=== PATIENT | male | born 1945 | race Caucasian/White ===

== ENCOUNTER → 2016-07-10 | Outpatient (CLI) | payer BC ==
[~2016-07-10] MED LIST: ALBINS/ INH; AMOX875T PO; ATOR-54 PO; ATV/1 PO; B-COTAB18 PO; DEXA2TAB PO; DLC5 PO; DRGTP100 TD; DXM/4 PO; FLUC100T4 PO; GFNSR600 PO; HYDR-4079 PO; LDDP5 TD; MRLP17X PO; ONDA8TAB12 PO; OXGN; POLY335019 PO; PRED10TA PO; PROC1TAB5 PO; SENNTAB23 PO; SERT-234 PO; SNK PO; TIOT1SPR PO; ZLF/50 PO; [UNRECOGNIZED DRUG - CODE] PO
--- NOTE | 2016-07-10 15:48 | DIAGNOSTIC IMAGING REPORT ---
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 FINDINGS: The heart remains stable in size. Stable volume loss within the left hemithorax. Mild diffuse interstitial thickening which is likely chronic. No new focal lung consolidations. No evidence for pulmonary edema. Left loculated hydropneumothorax remains unchanged. Left perihilar and bilateral paramediastinal thickening is also unchanged. This could represent radiation fibrosis. IMPRESSION: 1. Overall, no significant change compared to the prior studies. 2. Loculated left hydropneumothorax persists. 3. Bilateral paramediastinal and left perihilar thickening is also stable. This could represent post radiation changes. Electronically signed by: Lui Bal M.D. 07/10/2016 3:46 PM Dictated Date/Time: 07/10/2016 3:42 PM
== END | disposition home or self-care (01) ==
LOC: C.RAD 15:28
PROVIDERS: ATTEND Internal Medicine Hematology & Oncology
DX: C34.12 Malignant neoplasm of upper lobe, left bronchus or lung (principal); J94.8 Other specified pleural conditions

== ENCOUNTER → 2016-08-02 | Outpatient (CLI) | payer BC ==
[~2016-08-02] MED LIST changes: +OPTIRAY 320 IV PRN
--- NOTE | 2016-08-02 16:04 | DIAGNOSTIC IMAGING REPORT ---
ABDOMEN AND PELVIS CT WITH IV AND ORAL CONTRAST CT DOSE: 775.94 mGy.cm HISTORY: LUNG CA. TECHNIQUE: Multiaxial CT images of the abdomen and pelvis were performed following the use of intravenous and oral contrast. COMPARISON STUDY: 06/08/2016 FINDINGS: No change compared to the prior study. Left basilar changes including nodularity and pleural thickening remain unchanged. Diffuse fatty infiltration of liver is nonprogressive. Gallbladder is negative for distention. Right kidney demonstrates atrophy and cortical scarring. Mild cortical cortical scarring left kidney is present with no evidence for atrophy. These findings are stable. There are no new or interval findings. The bowel pattern is nonobstructive. There is atelectatic change and ectasia of the abdominal as well as iliac arterial vasculature. Bladder is midline. IMPRESSION: Stable evaluation of the abdomen and pelvis. 2. No change compared to the prior exam. 3. No new or interval process. Electronically signed by: Marshall Granado M.D. 08/02/2016 4:02 PM Dictated Date/Time: 08/02/2016 4:00 PM
--- NOTE | 2016-08-03 09:15 | DIAGNOSTIC IMAGING REPORT ---
CT OF THE CHEST WITH IV CONTRAST CLINICAL HISTORY: Lung cancer. COMPARISON STUDY: Chest CT June 08, 2016. TECHNIQUE: Following IV administration of 115 mL of Optiray-320, helical axial images of the chest were obtained. Images were viewed in the axial, sagittal and coronal planes. IV contrast was administered without complication. FINDINGS: A loculated left anterior pneumothorax is unchanged. Left perihilar/paramediastinal opacity is unchanged since prior exam of June 08, 2016. A small left pleural effusion is unchanged. The appearance of the left hemithorax is unchanged and prior exam. Moderate emphysema is noted. There is no right pneumothorax. Central airways are patent. A calcified right upper lobe fibronodular nodule is benign. No suspicious osseous lesions are present. The abdomen and pelvis will be reported separately. No enlarged thoracic lymph nodes are identified on this exam. IMPRESSION: 1. No change in left perihilar/paramediastinal opacity which may favors postradiation change. 2. Stable small left pleural effusion and no change in the left anterior loculated pneumothorax since prior exam. 3. No convincing evidence for recurrent or residual malignancy. Electronically signed by: Kennedy Packer M.D. 08/03/2016 9:14 AM Dictated Date/Time: 08/02/2016 4:00 PM
== END | disposition home or self-care (01) ==
LOC: C.CTS 15:33
PROVIDERS: ATTEND Nurse Practitioner Family
DX: C34.12 Malignant neoplasm of upper lobe, left bronchus or lung (principal); J90 Pleural effusion, not elsewhere classified

== ENCOUNTER → 2016-08-31 | Outpatient (CLI) | payer BC ==
[~2016-08-31] MED LIST changes: -OPTIRAY 320 IV PRN
--- NOTE | 2016-08-31 14:10 | DIAGNOSTIC IMAGING REPORT ---
CHEST 2 VIEWS ROUTINE HISTORY: Hemoptysis. COMPARISON: Chest CT 08/02/2016. FINDINGS: Bilateral Mediastinal and left perihilar thickening is again noted. This could represent post radiation changes. The heart is normal in size. No new focal lung consolidations. Loculated left hydropneumothorax persists. No right pleural effusion. Stable volume loss within the left hemithorax. IMPRESSION: Overall, no significant change compared the prior studies. Loculated left hydropneumothorax persists. Bilateral paramediastinal and left perihilar thickening is stable and may represent post radiation change. Electronically signed by: Lui Bal M.D. 08/31/2016 2:08 PM Dictated Date/Time: 08/31/2016 2:04 PM
== END | disposition home or self-care (01) ==
LOC: C.RAD 13:22
PROVIDERS: ATTEND Internal Medicine Hematology & Oncology
DX: C34.12 Malignant neoplasm of upper lobe, left bronchus or lung (principal)

== ENCOUNTER → 2016-09-10 | Outpatient (CLI) | payer BC ==
[~2016-09-10] MED LIST changes: +GADAVIST IV PRN
--- NOTE | 2016-09-10 13:29 | DIAGNOSTIC IMAGING REPORT ---
MRI OF THE BRAIN COMBO CLINICAL HISTORY: Lung cancer. COMPARISON STUDY: MRI of the brain dated 06/08/2016. TECHNIQUE: MRI of the brain was performed utilizing various T1 and T2-weighted sequences in the axial, sagittal, and coronal planes. Contrast-enhanced sequences were acquired following the administration of 8 cc of Gadavist. FINDINGS: Brain parenchyma: There is mild subcortical and periventricular microangiopathic disease. There has been progression of intracranial metastatic disease as compared to 06/08/2016. There is a 1.4 cm enhancing nodule in the right posterior parietal lobe (previously measured 0.3 cm). With mild surrounding edema. There is also a 1.1 cm lesion in the left posterior frontal lobe seen on axial image #19 with mild surrounding edema (new from previous). Both lesions show restricted diffusion. There is no hemorrhage or midline shift. There is no restricted diffusion typical for acute ischemia. No extra-axial fluid collection is seen. The cerebellar tonsils are normal in configuration. Ventricles, sulci, and cisterns: Normal in configuration. Pituitary and sella: Unremarkable. Intracranial vasculature: Normal flow voids are maintained at the skull base. Orbits: The bony orbits are grossly intact. Orbital contents are normal in appearance. Sinuses and mastoids: There is a right mastoid effusion. A left mastoid air cells and paranasal sinuses are clear. Calvarium: Unremarkable. Cervical cord: Partially visualized cervical spinal cord is normal in morphology and signal intensity. IMPRESSION: 1. Overall progression of intracranial metastatic disease. There are 2 enhancing metastatic lesions identified as detailed above measuring 1.4 cm and 1.1 cm with mild surrounding edema. 2. There is no hemorrhage, midline shift, or evidence of acute ischemia. 3. Right mastoid effusion. Electronically signed by: Hoang Cody M.D. 09/10/2016 1:28 PM Dictated Date/Time: 09/10/2016 1:23 PM
== END | disposition home or self-care (01) ==
LOC: C.MRI 11:28
PROVIDERS: ATTEND Internal Medicine Hematology & Oncology
DX: C34.12 Malignant neoplasm of upper lobe, left bronchus or lung (principal); C79.31 Secondary malignant neoplasm of brain; H74.91 Unspecified disorder of right middle ear and mastoid

== ENCOUNTER → 2016-10-09 | Outpatient (CLI) | payer BC ==
[~2016-10-09] MED LIST changes: -GADAVIST IV PRN; -PRED10TA PO
[2016-10-09 09:50] LABS: BLOOD UREA NITROGEN 34 mg/dl (7-18)
--- NOTE | 2016-10-17 06:34 | CODING QUERY NO DIAGNOSIS ---
TREATMENT RENDERED WITHOUT A DIAGNOSIS To promote full compliance with coding requirements relating to patient care, physician participation is requested in all cases of terminal gauger uncertainty. Please assist us with providing a diagnosis/symptom for the test(s) below: A diagnosis/symptom was not documented on your Order. A valid diagnosis/symptom is required to bill all insurances. Please remember that we are unable to code a diagnosis of rule out, probable, possible, questionable, or suspected. Tests that require a diagnosis: DOS: 10/09/16 * BUN DIAGNOSIS: * CREATININE DIAGNOSIS: Provider Signature: Date: Thank you Selena Bae[facility]ton [employer] Once completed, please kindly fax back to [phone] For questions please call [phone]
== END | disposition home or self-care (01) ==
LOC: C.LAB 08:37
PROVIDERS: ATTEND Physician Assistant Medical
DX: C34.10 Malignant neoplasm of upper lobe, unspecified bronchus or lung (principal); C79.31 Secondary malignant neoplasm of brain

== ENCOUNTER → 2016-10-16 | Outpatient (CLI) | payer BC ==
[~2016-10-16] MED LIST changes: +OPTIRAY 320 IV PRN
--- NOTE | 2016-10-16 11:27 | DIAGNOSTIC IMAGING REPORT ---
CT SCAN OF THE CHEST WITH IV CONTRAST CLINICAL HISTORY: Lung cancer follow-up. COMPARISON STUDY: Chest CT scans dated 216 and 17 and 01/17/2015. TECHNIQUE: Following the IV administration of 92 cc of Optiray 320, CT scan of the thorax was performed from the thoracic inlet to the upper abdomen. Images are reviewed in the axial, sagittal, and coronal planes. IV contrast was administered without complication. CT DOSE: 403.84 mGy.cm FINDINGS: Thyroid: Imaged portions of the thyroid gland are normal in size and attenuation. Thoracic aorta: There is atherosclerotic calcification of the thoracic aorta, which is normal in caliber and demonstrates standard 3-vessel arch anatomy. No dissection is seen. Pulmonary vasculature: The pulmonary trunk is normal in caliber. There are no filling defects identified in the central pulmonary vessels to indicate pulmonary embolus. Note that this examination was not protocoled for evaluation of the pulmonary arteries. Heart: The heart is normal in size and configuration, and without pericardial effusion. The coronary arteries are densely calcified. Lungs and pleural spaces: Emphysema is noted. There is significant left perihilar and upper lobe fibrosis, overall similar to the 08/02/2016 examination. A loculated hydropneumothorax at the anterior left apex is unchanged from previous, as is loculated pleural fluid at the left lung base. There is a new irregular nodular density in the lingula seen on axial image #164. This measures 1.4 cm. A 3 mm right upper lobe nodule seen image #144. This is unchanged from multiple prior studies and of low suspicion. The right lung is otherwise grossly clear. There is minimal debris present within the left mainstem bronchus. The trachea appears patent. Scattered calcified granulomas are observed. . Mediastinum: There are new and pathologically enlarged lymph nodes in the posterior/inferior mediastinum. Enlarged nodes are seen posterior to the descending thoracic aorta just above the esophageal hiatus. The largest node is present on image #209 and measures 2.1 x 2.1 cm. A mildly enlarged left retrocrural node is seen on image #248 and measures 1.1 cm. Cherri: Clear. Axillae: There is no axillary lymphadenopathy. Upper abdomen: The liver is steatotic. A small hiatal hernia is identified. The kidneys demonstrate cortical atrophy, right asymmetrically greater than left. The pancreas is atrophic and there are numerous parenchymal calcifications consistent with chronic pancreatitis. There is advanced atherosclerotic calcification and mild ectasia of the abdominal aorta. No adrenal lesion is seen. Skeletal structures: The skeletal structures are osteopenic. No lytic or blastic bony lesions are seen. IMPRESSION: 1. Emphysema. 2. Extensive left perihilar/left upper lobe fibrotic change, a loculated left apical hydropneumothorax, and pleural fluid at the left lung base are similar over multiple prior examinations. 3. There are new and pathologically enlarged lymph nodes seen in the posterior/inferior mediastinum behind the descending thoracic aorta and in the left retrocrural region. This is highly concerning for metastatic disease. 4. There is a new 1.4 cm irregular nodular density in the lingula. Although this could be on an inflammatory basis, recurrent neoplasm is not excluded. 5. The right lung is grossly clear. 6. Hepatic steatosis. 7. Additional changes as above. Electronically signed by: Hoang Cody M.D. 10/16/2016 11:26 AM Dictated Date/Time: 10/16/2016 11:12 AM
== END | disposition home or self-care (01) ==
LOC: C.CTS 09:24
PROVIDERS: ATTEND Physician Assistant Medical
DX: C34.12 Malignant neoplasm of upper lobe, left bronchus or lung (principal); C79.31 Secondary malignant neoplasm of brain

== ENCOUNTER → 2016-11-07 | Outpatient (CLI) | payer BC ==
[~2016-11-07] MED LIST changes: -OPTIRAY 320 IV PRN
--- NOTE | 2016-11-07 10:51 | DIAGNOSTIC IMAGING REPORT ---
PET/CT HISTORY: Lung enhancement C34.12 TECHNIQUE: PET/CT was performed from the base of the skull through the pelvis following the intravenous administration of 15.45 mCi of F18-FDG. Non-contrast CT imaging was performed over the same range without breath-hold for attenuation correction of PET images and anatomic correlation, but not for primary interpretation as it is not of standard diagnostic quality. CT DOSE: COMPARISON: December 28, 2015. CT chest 10/16/2016 FINDINGS: HEAD AND NECK: Physiologic muscular activity. No metabolically active adenopathy. CHEST: Unchanging left apical fibrous and loculated pneumothorax-type change. Moderate activity characteristics although similar in general compared to the prior exam. Metabolically active nodule posterior chest wall on the right having SUVs of 3.2. Developing left posterior periaortic adenopathy with SUVs of 7.7. Somewhat progressive metabolic activity adjacent to the left basilar density including a left paravertebral location. May be partial localized invasion to the posterior chest wall which is similar compared to the prior exam. ABDOMEN/PELVIS: Interval development of a single metabolically active nodule central right hepatic lobe with an SUV of 6. This measures 1.5 cm. MUSCULOSKELETAL: There is no FDG-avid or destructive bone lesion. IMPRESSION: 1. Somewhat progressive metabolic activity involving the density at the left base including progressive para-aortic/paravertebral adenopathy in the lower chest region. 2. Developing metastatic disease of liver with a solitary metastatic focus of the central right hepatic lobe. 3. The upper lung findings appear generally stable Electronically signed by: Marshall Granado M.D. 11/07/2016 10:50 AM Dictated Date/Time: 11/07/2016 10:32 AM
== END | disposition home or self-care (01) ==
LOC: C.PET 07:55
PROVIDERS: ATTEND Nurse Practitioner Family
DX: C34.12 Malignant neoplasm of upper lobe, left bronchus or lung (principal); C78.7 Secondary malignant neoplasm of liver and intrahepatic bile duct; Z08 Encounter for follow-up examination after completed treatment for malignant neoplasm; Z92.3 Personal history of irradiation

== ENCOUNTER → 2016-11-07 | Outpatient (CLI) | payer BC ==
[2016-11-07 14:34] VITALS: BP 98/70; PULSE 97; O2SAT 93
--- NOTE | 2016-11-07 16:39 | Radiation Oncology Follow-Up ---
Radiation Oncology Follow-Up Date of Visit November 07, 2016. 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 Status post 4 cycles of carboplatin/etoposide for recurrent/progressive disease in brain/left hemithorax Chemotherapy completed May 2016 Progression of metastatic disease on brain MRI 09/10/2016 Last Edited By: Kylie Sun on Sep 12, 2016 16:15 (Kylie Sun PA-C) History of Present Illness Mr. Wei is a 69-year-old gentleman with previous smoking history who recently presented with left pleuritic chest pain and shortness of breath and minimal weight loss. He eventually was seen by primary care and had a chest x-ray which showed a left upper lobe mass and then did have a CT thorax on 01/17/2014 which showed a 5.5 cm left upper lobe mass which extended into the mediastinum involving the left pulmonary artery. The patient was then seen by Dr. Weems who took the patient for a bronchoscopy on 01/20/2015 which revealed partial obstruction of the left mainstem bronchus with a friable endobronchial mass. No mediastinal lymph nodes were noted. Biopsy was completed and revealed small cell lung carcinoma. The patient then had a PET/CT scan on 01/24/2015 which showed elevated SUV of 12.4 associated with the left upper lobe mass and multiple prominent non-FDG avid mediastinal lymph nodes. An MRI of the brain was completed Patient: MAIKEL WEI : 1945 Med Rec: [id number] Acct ID: [id number] Page: on 01/24/2015 which showed no evidence for intracranial metastatic disease. The patient was referred to Dr. Powers who recommended concurrent chemoradiation therapy. We are now seeing the patient in consultation for discussion of radiation therapy. The patient is doing well overall. He is tolerating his pain with the aid of pain medication which does help partially. He denies any hemoptysis, fevers, chills, night sweats. He has lost some weight and does have a poor appetite. Denies any headaches or any focal neurologic deficits. He has no other complaints at this time He underwent radiation therapy to the chest from 02/02/2015 to 03/28/2015. There was a large break due to hospitalization. He did received 7000 cGy combined radiation and chemotherapy. He return to our office for prophylactic cranial irradiation. This was completed 06/27/2015. He received 2500 cGy. ( He has been followed closely by Dr. Powers with recheck imaging. An MRI of the brain 12/15/2015 showed a 5 mm focus of peripheral enhancement juncture right parietal occipital lobe. This is well seen transaxially but is not appreciated currently. Remainder of study is negative. Close MRI follow-up is considered mandatory to exclude a solitary focus of developing metastatic change. On 01/26/2016 he had a recheck MRI which showed increase in size in the 7 mm enhancing lesion within the right parietal lobe. Therefore, this is consistent with metastatic focus. The patient was showing possible progression of the chest. He had been seen in decision was to wait on radiation to determine if he has long-term stability of the disease. An MRI of the brain 02/28/2016 showed an interval decrease in the size of the enhancing right posterior parietal nodule which currently measures 3.6 mm. Interval resolution of the surrounding vasogenic edema. No new or enhancing lesions were delineated. MRI of the brain was repeated again 04/10/2016 showed slight decrease in size and a 3 mm enhancing nodule within the right posterior parietal lobe. No new enhancing lesions were identified. 06/08/2016 MRI of the brain showed stable 3 mm enhancing nodule in the posterior right parietal lobe. No new enhancing lesions. He had a recheck MRI 09/10/2016. This showed overall progression of intracranial metastatic disease. There are 2 enhancing metastatic lesion is identified. These measure 1.4 cm and 1.1 cm with mild surrounding edema. With this most recent finding patient is referred back to radioablation oncology to discuss therapy. He completed stereotactic radiation therapy to the brain 10/08/2016. He received 2400 cGy. He received 3 fractions of therapy at 800 cGy each. (Kylie Sun PA-C) Interim History Over the past month he denies any problems of recurrent headaches. He does have some lightheadedness but he has associated this with pain medication and blood pressure medication. By adjusting the time of the day that he takes his blood pressure medication he has been doing better regards to dizziness. He continues on dexamethasone 4 mg daily. He has been treated for thrush. He feels that the Diflucan also attributes to the dizziness T has experienced. He' s had no change in vision. No change in strength of the upper or lower extremities. He's been followed closely by medical oncology who have ordered a PET scan. There is plans for him to begin a taxanes type chemotherapy in the near future. He was given a prescription for pretreat steroids. He is not sure of the instructions. He plans to call or stop in at medical oncology just S the prescription. (Kylie Sun PA-C) Allergies Coded Allergies: No Known Allergies (Unverified , 02/07/16) Home Medications Scheduled Atorvastatin (Lipitor), 20 MG PO HS B-Complex Vitamins (Vitamin B Complex), 1 TAB PO DAILY Fluconazole (Diflucan), 1 TAB PO DAILY Sertraline HCl (Sertraline HCl), 50 MG PO DAILY Tiotropium [place] Monohydrate (Spiriva Respimat), 2 PUFFS PO DAILY Scheduled PRN Hydrocodone/Acetaminophen 10MG/325MG ([place] 10MG/325MG), 1 TAB PO Q4H PRN for Pain Review of Systems Gastrointestinal: Symptoms: Constipation GI Comments: occ constipation ,has a BM every 2-3 days Oral: Symptoms: Scant Saliva/Dry Mouth Other Oral Symptoms: " still taking meds for thrush - has 6 more days of treatment " Respiratory: Symptoms: Dry Cough, SOB With Exertion, Productive Cough Sputum Character: occ phlegm , had yellow spuum was put on a z pack and this is better Other Respiratory: " feels like he has to breathe harder " Urinary: Symptoms: Nocturia Comments: at night has a slower stream of urine, denies pain or burning Skin: Symptoms: No Problems (Kylie Sun PA-C) Physical Exam Vital Signs Date Time Temp Pulse Resp B/P Pulse Ox O2 Delivery O2 Flow Rate FiO2 11/07/16 14:34 97 20 98/70 93 Pain: Pain Onset: 2 months ago Side: Left Patient Pain Scale: 0 - 10 Initial Pain Intensity: 5.0 Pain Description: Dull Additional Comments: constant Fatigue: None General Appearance: no apparent distress Eyes: normal inspection, EOMI ENT: normal ENT inspection, hearing grossly normal Neck: no adenopathy Respiratory/Chest: lungs clear, no respiratory distress, no accessory muscle use Cardiovascular: regular rate, rhythm, no gallop, no murmur Abdomen: non tender Extremities: no pedal edema Neurologic/Psychiatric: bagging salvager II-XII nml as tested, no motor/sensory deficits, alert, normal mood/affect Skin: warm/dry (Kylie Sun PA-C) Laboratory Studies Test 09/18/16 09:46 10/09/16 08:42 10/23/16 14:11 White Blood Count 6.77 K/uL (4.8-10.8) 6.47 K/uL (4.8-10.8) Red Blood Count 4.02 M/uL (4.7-6.1) 4.34 M/uL (4.7-6.1) Hemoglobin 12.0 g/dL (14.0-18.0) 13.0 g/dL (14.0-18.0) Hematocrit 36.5 % (42-52) 39.8 % (42-52) Mean Corpuscular Volume 90.8 fL (80-100) 91.7 fL (80-100) Mean Corpuscular Hemoglobin 29.9 pg (25-34) 30.0 pg (25-34) Mean Corpuscular Hemoglobin Concent 32.9 g/dl (32-36) 32.7 g/dl (32-36) Platelet Count 182 K/uL (130-400) 155 K/uL (130-400) Mean Platelet Volume 9.2 fL (7.4-10.4) 9.1 fL (7.4-10.4) Neutrophils (%) (Auto) 72.8 % 76.0 % Lymphocytes (%) (Auto) 15.2 % 8.5 % Monocytes (%) (Auto) 5.8 % 9.4 % Eosinophils (%) (Auto) 5.2 % 5.3 % Basophils (%) (Auto) 0.7 % 0.6 % Neutrophils # (Auto) 4.93 K/uL (1.4-6.5) 4.92 K/uL (1.4-6.5) Lymphocytes # (Auto) 1.03 K/uL (1.2-3.4) 0.55 K/uL (1.2-3.4) Monocytes # (Auto) 0.39 K/uL (0.11-0.59) 0.61 K/uL (0.11-0.59) Eosinophils # (Auto) 0.35 K/uL (0-0.5) 0.34 K/uL (0-0.5) Basophils # (Auto) 0.05 K/uL (0-0.2) 0.04 K/uL (0-0.2) RDW Standard Deviation 50.1 fL (36.4-46.3) 55.0 fL (36.4-46.3) RDW Coefficient of Variation 15.0 % (11.5-14.5) 16.4 % (11.5-14.5) Immature Granulocyte % (Auto) 0.3 % 0.2 % Immature Granulocyte # (Auto) 0.02 K/uL (0.00-0.02) 0.01 K/uL (0.00-0.02) Sodium Level 142 mmol/L (136-145) 141 mmol/L (136-145) Potassium Level 4.3 mmol/L (3.5-5.1) 4.1 mmol/L (3.5-5.1) Chloride Level 108 mmol/L (98-107) 107 mmol/L (98-107) Carbon Dioxide Level 26 mmol/L (21-32) 26 mmol/L (21-32) Anion Gap 8.0 mmol/L (3-11) 8.0 mmol/L (3-11) Est Creatinine Clear Calc Drug Dose 44.3 ml/min 47.5 ml/min BUN/Creatinine Ratio 17.1 (10-20) 15.0 (10-20) Random Glucose 112 mg/dl (70-99) 82 mg/dl (70-99) Calcium Level 9.4 mg/dl (8.5-10.1) 9.2 mg/dl (8.5-10.1) Total Bilirubin 0.3 mg/dl (0.2-1) 0.5 mg/dl (0.2-1) Aspartate Amino Transferase (AST) 39 U/L (15-37) 24 U/L (15-37) Alanine Aminotransferase (ALT) 41 U/L (12-78) 43 U/L (12-78) Alkaline Phosphatase 185 U/L (45-117) 164 U/L (45-117) Lactate Dehydrogenase 234 U/L (87-241) 230 U/L (87-241) Total Protein 7.2 gm/dl (6.4-8.2) 7.1 gm/dl (6.4-8.2) Albumin 3.4 gm/dl (3.4-5.0) 3.2 gm/dl (3.4-5.0) Globulin 3.8 gm/dl (2.5-4.0) 3.9 gm/dl (2.5-4.0) Albumin/Globulin Ratio 0.9 (0.9-2) 0.8 (0.9-2) Blood Urea Nitrogen 34 mg/dl (7-18) 21 mg/dl (7-18) Creatinine 1.30 mg/dl (0.60-1.40) 1.40 mg/dl (0.60-1.40) Estimated GFR () 63.6 58.2 Estimated GFR (Non- 54.9 50.2 (Kylie Sun PA-C) Assessment & Plan Plan: The patient is also seen and examined by Dr. Badillo. He'll continue close follow-up with medical oncology. He will be starting chemotherapy. He is going to stop in to discuss the pretreatment medication that he is been given. We asked him to return to our office in 3 months. We'll plan to schedule a recheck MRI of the brain at that time if it has not been scheduled through medical oncology. He may call our office if he has a questions or concerns in the interim. (Kylie Sun PA-C) I agree with note created by Kylie Sun PA-C. I reviewed the patient's chart and information with her. I have examined and evaluated the patient. I reviewed relevant clinical information and answered the patient's and/or family' s questions. (Veeral. Badillo MD) Total Time In Follow-Up I spent 15 minutes speaking to the patient performing examination. I spent 15 minutes reviewing her medication and weaning this note. (Kylie Sun PA-C) I spent 15 minutes examining and counseling the patient. (Veeral. Badillo MD) Copy To Onofre Powers, D.OItz; Nirmala Delacruz; Cortez Perez MD; Juan Luis Herring MD Problem Qualifiers (1) Lung cancer: Laterality: left Lung location: upper lobe of lung Qualified Codes: C34.12 - Malignant neoplasm of upper lobe, left bronchus or lung
== END | disposition home or self-care (01) ==
LOC: C.ONC 14:27
PROVIDERS: ATTEND Physician Assistant Medical
DX: Z08 Encounter for follow-up examination after completed treatment for malignant neoplasm (principal); Z92.3 Personal history of irradiation; Z85.118 Personal history of other malignant neoplasm of bronchus and lung

== ENCOUNTER 2016-11-18 12:48 | Emergency (ER) | payer BC ==
[~2016-11-18] VITALS: Ht 165.1 cm; Wt 81.0 kg
[~2016-11-18 12:48] MED LIST changes: -ALBINS/ INH; -AMOX875T PO; -ATV/1 PO; -DEXA2TAB PO; -DLC5 PO; -DRGTP100 TD; -DXM/4 PO; -GFNSR600 PO; -LDDP5 TD; -MRLP17X PO; -ONDA8TAB12 PO; -OXGN; -POLY335019 PO; -PROC1TAB5 PO; -SENNTAB23 PO; -SERT-234 PO; -SNK PO; -[UNRECOGNIZED DRUG - CODE] PO
[2016-11-18 12:50] VITALS: TEMP 36.6; Ht 165.1 cm; Wt 81.0 kg
[2016-11-18] MEDS ORDERED: SODIUM CHLORIDE 0.9% 1000ML 2,000 ML IV ONE (13:15)
[2016-11-18 13:31] VITALS: O2SAT 97
[2016-11-18] MEDS ORDERED: ALBINS/ INH (13:40)
[2016-11-18] MEDS ORDERED: SERT-234 PO (13:40)
[2016-11-18] MEDS ORDERED: PROC1TAB5 PO (13:40)
[2016-11-18] MEDS ORDERED: SENNTAB23 PO (13:40)
[2016-11-18] MEDS ORDERED: ONDA8TAB12 PO (13:40)
[2016-11-18] MEDS ORDERED: ATV/1 PO (13:40)
[2016-11-18 13:45] LABS: BASO % 0.2 %; BASO ABS # 0.01 K/uL (0-0.2); COMPLETE YES; EOS % 6.6 %; HEMATOCRIT 37.2 % (42-52); IG% 0.2 %; LYMPH % 6.5 %; LYMPH ABS # 0.37 K/uL (1.2-3.4); MEAN CELL VOLUME 89.6 fL (80-100); MEAN CORPUSCULAR HEMOGLOBIN 30.1 pg (25-34); MEAN CORPUSCULAR HGB CONC 33.6 g/dl (32-36); MEAN PLATELET VOLUME 9.5 fL (7.4-10.4); MONO % 1.9 %; NEUT % 84.6 %; PLATELET COUNT 142 K/uL (130-400); RED BLOOD COUNT 4.15 M/uL (4.7-6.1); WHITE BLOOD COUNT 5.72 K/uL (4.8-10.8)
--- NOTE | 2016-11-18 13:53 | EMERGENCY ROOM VISIT NOTE ---
History Report prepared by Yamil: Kerri Steel Under the Supervision of: Dr. Noé Machado M.D. First contact with patient: 12:59 Chief Complaint: OTHER COMPLAINT Stated Complaint: LOW BLOOD PRESSURE,CANCER PATIENT History of Present Illness The patient is a 71 year old male who presents to the Emergency Room with complaints of persistent lightheadedness starting yesterday. He reports that he stumbles whenever he gets up because he feels lightheaded. He has lung cancer which spread to his brain with new spots on his liver. He received his first 3 Taxol infusions 4 days ago. He had radiation 1 month ago on his brain. He measured his blood pressure at home laying flat, sitting, and standing. His blood pressure was 57/46 when he was standing. He currently denies any nausea, chest pain, or increased SOB. He is usually on 2 L of O2 at home. He has been anemic before requiring blood transfusion. He has been drinking fluids and his urine does not appear dark. Source of History: patient Onset: yesterday Position: other (global) Quality: other (lightheaded) Timing: other (persistent) Associated Symptoms: No chest pain, No SOB, No nausea Review of Systems All systems have been listed, reviewed, and are negative other than those previously mentioned. Please see Additional Medical History Sheet. Past Medical & Surgical Medical Problems: (1) Benign hypertension (2) Congestive Heart Failure Nos (3) Hyperlipidemia (4) Hyperlipidemia Nec/Nos (5) Hypertension Nos (6) Hypoxia (7) Kidney stone (8) Lung cancer (9) Syncope and collapse Family History Congestive heart failure FHx: neurologic disorder Heart disease Social History Smoking Status: Former Smoker Alcohol Use: none Marital Status: Housing Status: lives with family Occupation Status: retired Current/Historical Medications Scheduled Atorvastatin (Lipitor), 20 MG PO HS B-Complex Vitamins (Vitamin B Complex), 1 TAB PO DAILY Sennosides-Docusate Sodium (Stool Softener), 1 TAB PO DAILY Sertraline (Zoloft), 100 MG PO DAILY Tiotropium [place] Monohydrate (Spiriva Respimat), 2 PUFFS PO DAILY Scheduled PRN Albuterol Sulf (Proventil 0.083% 2.5MG/3ML), 2.5 MG INH QID PRN for SOB/Wheezing Hydrocodone/Acetaminophen 10MG/325MG ([place] 10MG/325MG), 1 TAB PO Q4H PRN for Pain Lorazepam (Ativan), 1 MG PO Q8 PRN for Anxiety/Agitation Ondansetron Hcl (Zofran), 8 MG PO Q8H PRN for Nausea Prochlorperazine Maleate (Compazine), 10 MG PO Q6H PRN for Nausea Allergies Coded Allergies: No Known Allergies (Unverified , 02/07/16) Physical Exam Vital Signs Date Time Temp Pulse Resp B/P (MAP) Pulse Ox O2 Delivery O2 Flow Rate FiO2 11/18/16 17:53 92 16 130/76 98 11/18/16 16:27 93 18 152/90 98 Nasal Cannula 2.0 97 138/84 106 115/68 11/18/16 13:58 85 16 109/71 97 Nasal Cannula 2.0 11/18/16 13:33 86 18 109/68 101 90/54 105 72/49 11/18/16 13:31 97 Nasal Cannula 2.0 11/18/16 13:30 84 11/18/16 12:50 36.6 101 22 91/60 97 Room Air 2.0 Physical Exam GENERAL: Patient appears pale, awake, alert, appropriate, oriented x 3. Patient follows commands. Patient does not appear toxic. Patient is adequately hydrated and well-nourished. Currently on O2. SKIN: No erythema, pallor, cyanosis or rash HEENT: Normal head, pupils equal, reactive to light and accommodation. Ears normal. Oral cavity and posterior pharynx appear normal. Neck: Without adenopathy, no neck vein distention. LUNGS: Clear to auscultation. No wheezes, no rales, no rhonchi. HEART: No murmurs. No gallops. No rubs ABDOMEN: No masses, no rebound, no hepatomegaly or splenomegaly. EXTREMITIES: No signs of trauma. No pedal or pretibial edema. No calf or thigh tenderness. NEUROLOGIC: Cranial nerves II-XII within normal limits. No gross motor sensory function deficits. Medical Decision & Procedures ER Provider Diagnostic Interpretation: X ray results are stated below per my interpretation and the radiologist's interpretation. TWO VIEW CHEST CLINICAL HISTORY: Lung cancer. FINDINGS: AP and lateral chest radiograph is are compared to study dated 08/31/2016 and correlated with chest CT dated 10/16/2016. The AP view is degraded by patient rotation. The heart is top normal in size. There is atherosclerotic calcification of the thoracic aorta. Emphysema and chronic interstitial thickening is similar to previous. Left perihilar airspace opacity and volume loss in the left lung is similar to previous. There is no evidence of superimposed airspace consolidation or large pleural effusion. No pneumothorax is seen. The skeletal structures are osteopenic. IMPRESSION: 1. Emphysema, a left perihilar density, and chronic changes as above are not significantly changed from recent prior studies 2. There is no radiographic evidence of superimposed airspace consolidation or pleural effusion. Electronically signed by: Hoang Cody M.D. 11/18/2016 2:37 PM Dictated Date/Time: 11/18/2016 2:35 PM Laboratory Results 11/18/16 13:22 Red Blood Count 4.15, Mean Corpuscular Volume 89.6, Mean Corpuscular Hemoglobin 30.1, Mean Corpuscular Hemoglobin Concent 33.6, Mean Platelet Volume 9.5, Neutrophils (%) (Auto) 84.6, Lymphocytes (%) (Auto) 6.5, Monocytes (%) (Auto) 1.9, Eosinophils (%) (Auto) 6.6, Basophils (%) (Auto) 0.2, Neutrophils # (Auto) 4.84, Lymphocytes # (Auto) 0.37, Monocytes # (Auto) 0.11, Eosinophils # (Auto) 0.38, Basophils # (Auto) 0.01 11/18/16 13:22 Test 11/18/16 00:00 11/18/16 13:22 Urine Color YELLOW Urine Appearance CLEAR (CLEAR) Urine pH 8.0 (4.5-7.5) Urine Specific [place] 1.018 (1.000-1.030) Urine Protein NEG (NEG) Urine Glucose (UA) NEG (NEG) Urine Ketones NEG (NEG) Urine Occult Blood NEG (NEG) Urine Nitrite NEG (NEG) Urine Bilirubin NEG (NEG) Urine Urobilinogen NEG (NEG) Urine Leukocyte Esterase NEG (NEG) White Blood Count 5.72 K/uL (4.8-10.8) Red Blood Count 4.15 M/uL (4.7-6.1) Hemoglobin 12.5 g/dL (14.0-18.0) Hematocrit 37.2 % (42-52) Mean Corpuscular Volume 89.6 fL (80-100) Mean Corpuscular Hemoglobin 30.1 pg (25-34) Mean Corpuscular Hemoglobin Concent 33.6 g/dl (32-36) Platelet Count 142 K/uL (130-400) Mean Platelet Volume 9.5 fL (7.4-10.4) Neutrophils (%) (Auto) 84.6 % Lymphocytes (%) (Auto) 6.5 % Monocytes (%) (Auto) 1.9 % Eosinophils (%) (Auto) 6.6 % Basophils (%) (Auto) 0.2 % Neutrophils # (Auto) 4.84 K/uL (1.4-6.5) Lymphocytes # (Auto) 0.37 K/uL (1.2-3.4) Monocytes # (Auto) 0.11 K/uL (0.11-0.59) Eosinophils # (Auto) 0.38 K/uL (0-0.5) Basophils # (Auto) 0.01 K/uL (0-0.2) RDW Standard Deviation 52.5 fL (36.4-46.3) RDW Coefficient of Variation 15.9 % (11.5-14.5) Immature Granulocyte % (Auto) 0.2 % Immature Granulocyte # (Auto) 0.01 K/uL (0.00-0.02) Prothrombin Time 11.8 SECONDS (9.0-12.0) Prothromb Time International Ratio 1.1 (0.9-1.1) Activated Partial Thromboplast Time 26.7 SECONDS (21.0-31.0) Partial Thromboplastin Ratio 1.0 Anion Gap 8.0 mmol/L (3-11) Est Creatinine Clear Calc Drug Dose 55.3 ml/min Estimated GFR () 70.1 Estimated GFR (Non- 60.5 BUN/Creatinine Ratio 26.3 (10-20) Calcium Level 8.4 mg/dl (8.5-10.1) Total Bilirubin 0.6 mg/dl (0.2-1) Aspartate Amino Transf (AST/SGOT) 33 U/L (15-37) Alanine Aminotransferase (ALT/SGPT) 44 U/L (12-78) Alkaline Phosphatase 120 U/L (45-117) Troponin I < 0.015 ng/ml (0-0.045) Total Protein 6.4 gm/dl (6.4-8.2) Albumin 3.1 gm/dl (3.4-5.0) Globulin 3.3 gm/dl (2.5-4.0) Albumin/Globulin Ratio 0.9 (0.9-2) Laboratory results as stated above per my review. Medications Administered Medications (Trade) Dose Ordered Sig/Allison Route Start Time Stop Time Status Last Admin Dose Admin Sodium Chloride 2,000 ml @ 1,000 mls/hr Q2H ONCE IV 11/18/16 13:15 11/18/16 15:14 DC 11/18/16 13:51 1,000 MLS/HR ECG Indication: weakness Rate (beats per minute): 88 Rhythm: sinus rhythm Findings: ST elevation (2, 3, aVF), no ectopy Comparison ECG Date: 07-Feb-2016 Change: no significant change ED Course 1305: Past medical records reviewed. The patient was evaluated in room B5. A complete history and physical examination was performed. 1315: NSS 2000 ml @ 1000 mls/hr IV. 1520: I reevaluated the patient. He is starting to feel better after starting fluids. 1611: I reevaluated the patient. He is feeling better. We will recheck the orthostatics and do an ambulatory trial. 1632: Upon reevaluation, the patient appeared to have improvement of his symptoms. I discussed today's findings with him. He verbalized agreement of the treatment plan. He was discharged home. Medical Decision Nurses notes reviewed. Medical history sheet reviewed. Differential diagnosis includes but is not limited to: dehydration, metabolic disorder, acute cardiac event, pneumonia, sepsis, anemia. Medication Reconciliation: I attest that I have personally reviewed the patient' s current medication list. Blood pressure Screening: Patient was found to have normal blood pressure on screening and does not require follow up. The patient is currently being treated with chemotherapy and radiation for metastatic disease. The patient clinically appears dehydrated. Patient was given 2 L of IV fluids and later was given oral fluids. The patient felt significantly better. Labs and EKG were evaluated. Please see above. The patient remains slightly orthostatic at time of discharge but I feel that he is safe to return home. He will continue to push fluids at home. Impression Primary Impression: Dehydration Additional Impression: Lung cancer Scribe Attestation The scribe's documentation has been prepared under my direction and personally reviewed by me in its entirety. I confirm that the note above accurately reflects all work, treatment, procedures, and medical decision making performed by me. Departure Information Dispostion Home / Self-Care Referrals Nirmala Delacruz (PCP) Patient Instructions My [facility] Additional Instructions Drink at least 3-4 quarts of liquid over the next 24 hours. Follow-up with your family physician/oncologist this week. Continue all of your current medications as prescribed. Problem Qualifiers Additional Impression:
[2016-11-18 13:55] LABS: INR 1.1 (0.9-1.1); PROTHROMBIN TIME (PATIENT) 11.8 SECONDS (9.0-12.0)
[2016-11-18 14:09] LABS: ALT/SGPT 44 U/L (12-78); AST/SGOT 33 U/L (15-37); BLOOD UREA NITROGEN 32 mg/dl (7-18); BUN/CREATININE RATIO 26.3 (10-20); CALCIUM 8.4 mg/dl (8.5-10.1); CARBON DIOXIDE 26 mmol/L (21-32); CHLORIDE 106 mmol/L (98-107); GLUCOSE 113 mg/dl (70-99); SODIUM 140 mmol/L (136-145)
[2016-11-18 14:13] LABS: ALB/GLOB RATIO 0.9 (0.9-2); ALKALINE PHOSPHATASE 120 U/L (45-117)
--- NOTE | 2016-11-18 14:38 | DIAGNOSTIC IMAGING REPORT ---
TWO VIEW CHEST CLINICAL HISTORY: Lung cancer. FINDINGS: AP and lateral chest radiograph is are compared to study dated 08/31/2016 and correlated with chest CT dated 10/16/2016. The AP view is degraded by patient rotation. The heart is top normal in size. There is atherosclerotic calcification of the thoracic aorta. Emphysema and chronic interstitial thickening is similar to previous. Left perihilar airspace opacity and volume loss in the left lung is similar to previous. There is no evidence of superimposed airspace consolidation or large pleural effusion. No pneumothorax is seen. The skeletal structures are osteopenic. IMPRESSION: 1. Emphysema, a left perihilar density, and chronic changes as above are not significantly changed from recent prior studies 2. There is no radiographic evidence of superimposed airspace consolidation or pleural effusion. Electronically signed by: Hoang Cody M.D. 11/18/2016 2:37 PM Dictated Date/Time: 11/18/2016 2:35 PM
[2016-11-18 14:45] LABS: URINE APPEARANCE CLEAR (CLEAR); URINE BILIRUBIN NEG (NEG); URINE COLOR YELLOW; URINE NITRITE NEG (NEG); URINE SPECIFIC GRAVITY 1.018 (1.000-1.030); UROBILINOGEN NEG (NEG); ZZUR CULT IF INDIC CLEAN CATCH NO
[2016-11-18 14:54] LABS: MANUAL MICROSCOPIC REQUIRED? NO; REVIEW REQ? NO
[2016-11-18 17:53] VITALS: BP 130/76; PULSE 92; O2SAT 98
[2016-12-14] MEDS ORDERED: SNK PO (13:40)
[2016-12-14] MEDS ORDERED: LDDP5 TD (13:40)
[2016-12-14] MEDS ORDERED: DRGTP100 TD (13:40)
[2016-12-14] MEDS ORDERED: MRLP17X PO (13:40)
[2016-12-14] MEDS ORDERED: [UNRECOGNIZED DRUG - CODE] PO (13:40)
[2016-12-14] MEDS ORDERED: DLC5 PO (13:40)
[2016-12-21] MEDS ORDERED: POLY335019 PO (11:25)
[2017-01-11] MEDS ORDERED: POLY335019 PO (11:04)
[2017-01-11] MEDS ORDERED: GFNSR600 PO (11:04)
[2017-01-11] MEDS ORDERED: SNK PO (11:04)
[2017-01-11] MEDS ORDERED: [UNRECOGNIZED DRUG - CODE] PO (11:04)
[2017-01-11] MEDS ORDERED: AMOX875T PO (11:04)
[2017-01-11] MEDS ORDERED: DLC5 PO (11:04)
[2017-01-11] MEDS ORDERED: DEXA2TAB PO (11:04)
[2017-01-11] MEDS ORDERED: OXGN (11:11)
[2017-01-11] MEDS ORDERED: FLUC100T4 PO (11:30)
== END 2016-11-18 17:10 | disposition home or self-care (01) ==
LOC: C.EDB 12:49
DX: E86.0 Dehydration (principal); C34.90 Malignant neoplasm of unspecified part of unspecified bronchus or lung; C79.31 Secondary malignant neoplasm of brain; C78.7 Secondary malignant neoplasm of liver and intrahepatic bile duct; I10 Essential (primary) hypertension; I50.9 Heart failure, unspecified; E78.5 Hyperlipidemia, unspecified; Z87.442 Personal history of urinary calculi; Z87.891 Personal history of nicotine dependence; J43.9 Emphysema, unspecified

== ENCOUNTER 2016-11-22 12:20 | Emergency (ER) | payer BC ==
[~2016-11-22] VITALS: Ht 165.1 cm; Wt 83.2 kg
[~2016-11-22 12:20] MED LIST changes: +ALBINS/ INH; +ATV/1 PO; -FLUC100T4 PO; +ONDA8TAB12 PO; +PROC1TAB5 PO; +SENNTAB23 PO; +SERT-234 PO; -ZLF/50 PO
[2016-11-22 12:28] VITALS: TEMP 36.4; Ht 165.1 cm; Wt 83.2 kg
[2016-11-22] MEDS ORDERED: SODIUM CHLORIDE 0.9% 1000ML 1,000 ML IV STA (12:49)
[2016-11-22] MEDS ORDERED: SODIUM CHLORIDE 0.9% 500ML 500 ML IV STA (12:49)
--- NOTE | 2016-11-22 13:01 | EMERGENCY ROOM VISIT NOTE ---
History Report prepared by Yamil: Silvia Zepeda Under the Supervision of: Dr. Yisel Rousseau M.D. First contact with patient: 12:36 Chief Complaint: EYE ASSESSMENT Stated Complaint: VISION PROBLEMS-SEEING DOUBLE-RADIATION PATIENT History of Present Illness The patient is a 71 year old male who presents to the Emergency Room with complaints of constant vision issues beginning last night. 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 He reports that he has been receiving Taxol and has had radiation on his brain. He notes that he was driving in a car last night as a passenger when he began noticing that he had double vision. He complains of intermittent sharp head pains that are new, incontinence, stumbling, and hypotension. The patient denies any vomiting. He states that he called his doctor this morning and was told to come in to the ED for his vision changes. The patient notes that he was seen here 5 days ago for dehydration and has drinking a lot of fluids since his visit. He notes that he takes pain medication and is on oxycodone and Ativan but has not been taking the oxycodone often recently. Source of History: patient Onset: last night Position: eye (bilateral) Quality: other (double vision) Timing: constant Associated Symptoms: No vomiting Note: He complains of intermittent sharp head pains that are new, incontinence, and hypotension. Review of Systems See HPI for pertinent positives & negatives. A total of 10 systems reviewed and were otherwise negative. Past Medical & Surgical Medical Problems: (1) Benign hypertension (2) Congestive Heart Failure Nos (3) Hyperlipidemia (4) Hyperlipidemia Nec/Nos (5) Hypertension Nos (6) Hypoxia (7) Kidney stone (8) Lung cancer (9) Syncope and collapse Family History Congestive heart failure FHx: neurologic disorder Heart disease Social History Smoking Status: Former Smoker Alcohol Use: none Marital Status: Housing Status: lives with family Occupation Status: retired Current/Historical Medications Scheduled Atorvastatin (Lipitor), 20 MG PO HS B-Complex Vitamins (Vitamin B Complex), 1 TAB PO DAILY Sennosides-Docusate Sodium (Stool Softener), 1 TAB PO DAILY Sertraline (Zoloft), 100 MG PO DAILY Tiotropium [place] Monohydrate (Spiriva Respimat), 2 PUFFS PO DAILY Scheduled PRN Albuterol Sulf (Proventil 0.083% 2.5MG/3ML), 2.5 MG INH QID PRN for SOB/Wheezing Hydrocodone/Acetaminophen 10MG/325MG ([place] 10MG/325MG), 1 TAB PO Q4H PRN for Pain Lorazepam (Ativan), 1 MG PO Q8 PRN for Anxiety/Agitation Ondansetron Hcl (Zofran), 8 MG PO Q8H PRN for Nausea Prochlorperazine Maleate (Compazine), 10 MG PO Q6H PRN for Nausea Allergies Coded Allergies: No Known Allergies (Unverified , 11/22/16) Physical Exam Vital Signs Date Time Temp Pulse Resp B/P (MAP) Pulse Ox O2 Delivery O2 Flow Rate FiO2 11/22/16 17:12 84 20 128/75 97 11/22/16 14:51 84 20 151/87 97 11/22/16 13:33 79 134/74 83 137/73 87 98/62 11/22/16 12:38 81 11/22/16 12:28 36.4 88 18 90/60 95 Room Air Physical Exam Vital signs reviewed. General: Well-appearing, in no significant distress. HEENT: No scleral icterus, PERRLA, neck supple. Atraumatic. Mild horizontal nystagmus, extraocular movements are intact. Cardiovascular: Regular rate and rhythm, no extra sounds. Pulmonary: Clear to auscultation bilaterally, normal work of breathing. Abdomen: Soft, nontender, nondistended, positive bowel sounds. Musculoskeletal: Atraumatic, no peripheral edema. Neurologic: Patient awake alert and oriented x 3, full strength in all 4 extremities. Cranial nerves 2 through 12 grossly intact. Skin: Warm, dry, no rash Medical Decision & Procedures ER Provider Diagnostic Interpretation: Radiology results as stated below per my review and radiologist interpretation: MRI OF THE BRAIN WITHOUT AND WITH IV CONTRAST FINDINGS: Stable to slightly improved exam compared to the prior study. Left superior frontal lobe lesion continue to show a small focus of restricted diffusion. Overall postcontrast size, however is diminished with current dimensions of 6 mm improved from the prior study of 1.1 cm. A posterior right occipital lesion shows a slight decrease in intensity of enhancement. Maximum dimension is 1 cm diminished from 1.4 cm. Small amount of surrounding vasogenic edema persists. There are no major new or interval findings. There is no midline shift. Mucosal thickening of the right mastoid air cells persists and is unchanged. Minimal chronic small vessel change of the periventricular deep white matter regions persists and is nonprogressive. IMPRESSION: Stable to slightly improved exam compared to the prior study. Metastatic disease slightly improved compared to the prior exam. No new or interval findings. Electronically signed by: Marshall Granado M.D. 11/22/2016 5:19 PM Dictated Date/Time: 11/22/2016 5:[address] OF THE HEAD WITHOUT CONTRAST FINDINGS: No acute intracranial hemorrhage, midline shift or mass effect is present. Ventricular system is normal. Basilar cisterns are patent. There are no extra-axial collections. Note is made of a 1 cm peripherally hyperdense posterior right parietal lobe lesion shown on image 23 of 32. This may have decreased in size since MRI of September 10, 2016 but is suboptimally assessed on this unenhanced head CT. The left frontal lobe lesion shown on prior MRI is not visualized on this examination. No new lesions are identified on this unenhanced study. No suspicious calvarial lesions are present. Fluid within the right mastoid air cells is similar to prior MRI. IMPRESSION: 1. No acute intracranial hemorrhage. 2. 1 cm posterior right parietal lobe lesion with suspected decrease in size since MRI of September 10, 2016. Nonvisualization of the left frontal lobe lesion shown on prior MRI. Evaluation is suboptimal on this unenhanced CT but favors a partial treatment response. Electronically signed by: Kennedy Packer M.D. 11/22/2016 1:33 PM Dictated Date/Time: 11/22/2016 1:27 PM Laboratory Results 11/22/16 13:27 Red Blood Count 3.76, Mean Corpuscular Volume 88.8, Mean Corpuscular Hemoglobin 29.5, Mean Corpuscular Hemoglobin Concent 33.2, Mean Platelet Volume 9.4, Neutrophils (%) (Auto) 62.1, Lymphocytes (%) (Auto) 17.3, Monocytes (%) (Auto) 9.5, Eosinophils (%) (Auto) 10.1, Basophils (%) (Auto) 0.7, Neutrophils # (Auto ) 1.90, Lymphocytes # (Auto) 0.53, Monocytes # (Auto) 0.29, Eosinophils # (Auto ) 0.31, Basophils # (Auto) 0.02 11/22/16 13:27 Test 11/22/16 13:27 White Blood Count 3.06 K/uL (4.8-10.8) Red Blood Count 3.76 M/uL (4.7-6.1) Hemoglobin 11.1 g/dL (14.0-18.0) Hematocrit 33.4 % (42-52) Mean Corpuscular Volume 88.8 fL (80-100) Mean Corpuscular Hemoglobin 29.5 pg (25-34) Mean Corpuscular Hemoglobin Concent 33.2 g/dl (32-36) Platelet Count 142 K/uL (130-400) Mean Platelet Volume 9.4 fL (7.4-10.4) Neutrophils (%) (Auto) 62.1 % Lymphocytes (%) (Auto) 17.3 % Monocytes (%) (Auto) 9.5 % Eosinophils (%) (Auto) 10.1 % Basophils (%) (Auto) 0.7 % Neutrophils # (Auto) 1.90 K/uL (1.4-6.5) Lymphocytes # (Auto) 0.53 K/uL (1.2-3.4) Monocytes # (Auto) 0.29 K/uL (0.11-0.59) Eosinophils # (Auto) 0.31 K/uL (0-0.5) Basophils # (Auto) 0.02 K/uL (0-0.2) RDW Standard Deviation 49.7 fL (36.4-46.3) RDW Coefficient of Variation 15.3 % (11.5-14.5) Immature Granulocyte % (Auto) 0.3 % Immature Granulocyte # (Auto) 0.01 K/uL (0.00-0.02) Anion Gap 5.0 mmol/L (3-11) Est Creatinine Clear Calc Drug Dose 61.1 ml/min Estimated GFR () 77.9 Estimated GFR (Non- 67.2 BUN/Creatinine Ratio 23.1 (10-20) Calcium Level 8.3 mg/dl (8.5-10.1) Magnesium Level 2.2 mg/dl (1.8-2.4) Total Bilirubin 0.3 mg/dl (0.2-1) Direct Bilirubin < 0.1 mg/dl (0-0.2) Aspartate Amino Transf (AST/SGOT) 31 U/L (15-37) Alanine Aminotransferase (ALT/SGPT) 47 U/L (12-78) Alkaline Phosphatase 128 U/L (45-117) Total Protein 6.2 gm/dl (6.4-8.2) Albumin 2.9 gm/dl (3.4-5.0) Laboratory results per my review. Medications Administered Medications (Trade) Dose Ordered Sig/[place]ison Route Start Time Stop Time Status Last Admin Dose Admin Sodium Chloride 500 ml @ 999 mls/hr Q31M STAT IV 11/22/16 12:49 11/22/16 13:19 DC 11/22/16 13:34 999 MLS/HR Sodium Chloride 1,000 ml @ 125 mls/hr Q8H STAT IV 11/22/16 12:49 11/22/16 17:59 DC 11/22/16 14:01 125 MLS/HR ECG Indication: weakness Rate (beats per minute): 83 Rhythm: normal sinus Findings: no acute ischemic change, no ectopy ED Course 1236: Past medical records reviewed. The patient was evaluated in room C7. A complete history and physical examination was performed. 1249: Sodium Chloride 1000 ml @ 125 mls/hr IV, Sodium Chloride 500 ml @ 999 mls/ hr IV. 1700: Gadavist 8mmol PRN IV Interaction Checking. 1726: Upon reevaluation, the patient appeared to have improvement of his symptoms. I discussed findings with the patient. He verbalized agreement of the treatment plan. The patient was discharged home. Medical Decision Differential diagnosis: Etiologies such as metabolic, infection, hypo/hyperglycemia, electrolyte abnormalities, cardiac sources, intracerebral event, toxicologic, neurologic, as well as others were entertained. Medication Reconciliation: I attest that I have personally reviewed the patient' s current medication list. Blood Pressure Screening: Patient was found to have a low to normal blood pressure due to circumstances. I do not believe that the patient requires hypertension monitoring. This pt was evaluated and appeared to be in no distress. Pt is neurologically intact currently. CT head is negative for acute bleed or increase in swelling. Tumor burden is improved. MRI was performed with similar findings. Pt is currently asymptomatic. He states vision changes and becomes double at far distances. Pt was advised to f/u with ophthalmology ROBERTO and to avoid driving until that time. He may need neuro/oncology visit as well. He will return to the ED for worsening of symptoms or any medical concerns. Impression Primary Impression: Diplopia Additional Impression: Brain tumor Scribe Attestation The scribe's documentation has been prepared under my direction and personally reviewed by me in its entirety. I confirm that the note above accurately reflects all work, treatment, procedures, and medical decision making performed by me. Departure Information Dispostion Home / Self-Care Referrals Nirmala Delacruz (PCP) Forms HOME CARE DOCUMENTATION FORM, IMPORTANT VISIT INFORMATION, WORK / SCHOOL INSTRUCTIONS Patient Instructions My [facility] Additional Instructions Diagnosis: Double vision, brain tumor Please drink plenty of fluids. Stagger your pain medicine and Ativan by at least one to 2 hours. Contact your eye doctor for follow-up within the next [address] a car until you are cleared by ophthalmology. Return to the emergency department for worsening of symptoms or any medical concerns. Problem Qualifiers
--- NOTE | 2016-11-22 13:35 | DIAGNOSTIC IMAGING REPORT ---
CT OF THE HEAD WITHOUT CONTRAST CLINICAL HISTORY: Vision changes. History of metastatic lung cancer status post radiation. COMPARISON STUDY: MRI the brain September 10, 2016. CT DOSE: 729.78 mGycm TECHNIQUE: Helical axial images of the head were obtained without IV contrast. Automated exposure control was utilized for the study. FINDINGS: No acute intracranial hemorrhage, midline shift or mass effect is present. Ventricular system is normal. Basilar cisterns are patent. There are no extra-axial collections. Note is made of a 1 cm peripherally hyperdense posterior right parietal lobe lesion shown on image 23 of 32. This may have decreased in size since MRI of September 10, 2016 but is suboptimally assessed on this unenhanced head CT. The left frontal lobe lesion shown on prior MRI is not visualized on this examination. No new lesions are identified on this unenhanced study. No suspicious calvarial lesions are present. Fluid within the right mastoid air cells is similar to prior MRI. IMPRESSION: 1. No acute intracranial hemorrhage. 2. 1 cm posterior right parietal lobe lesion with suspected decrease in size since MRI of September 10, 2016. Nonvisualization of the left frontal lobe lesion shown on prior MRI. Evaluation is suboptimal on this unenhanced CT but favors a partial treatment response. Electronically signed by: Kennedy Packer M.D. 11/22/2016 1:33 PM Dictated Date/Time: 11/22/2016 1:27 PM
[2016-11-22 13:45] LABS: BASO % 0.7 %; BASO ABS # 0.02 K/uL (0-0.2); COMPLETE YES; EOS % 10.1 %; HEMATOCRIT 33.4 % (42-52); IG% 0.3 %; LYMPH % 17.3 %; LYMPH ABS # 0.53 K/uL (1.2-3.4); MEAN CELL VOLUME 88.8 fL (80-100); MEAN CORPUSCULAR HEMOGLOBIN 29.5 pg (25-34); MEAN CORPUSCULAR HGB CONC 33.2 g/dl (32-36); MEAN PLATELET VOLUME 9.4 fL (7.4-10.4); MONO % 9.5 %; NEUT % 62.1 %; PLATELET COUNT 142 K/uL (130-400); RED BLOOD COUNT 3.76 M/uL (4.7-6.1); WHITE BLOOD COUNT 3.06 K/uL (4.8-10.8)
[2016-11-22 14:03] LABS: ALT/SGPT 47 U/L (12-78); AST/SGOT 31 U/L (15-37); BLOOD UREA NITROGEN 25 mg/dl (7-18); BUN/CREATININE RATIO 23.1 (10-20); CALCIUM 8.3 mg/dl (8.5-10.1); CARBON DIOXIDE 26 mmol/L (21-32); CHLORIDE 109 mmol/L (98-107); GLUCOSE 104 mg/dl (70-99); MAGNESIUM 2.2 mg/dl (1.8-2.4); POTASSIUM 3.8 mmol/L (3.5-5.1); SODIUM 140 mmol/L (136-145)
[2016-11-22 14:05] LABS: ALKALINE PHOSPHATASE 128 U/L (45-117)
[2016-11-22] MEDS ORDERED: GADAVIST IV PRN (17:00)
[2016-11-22 17:12] VITALS: BP 128/75; PULSE 84; O2SAT 97
--- NOTE | 2016-11-22 17:21 | DIAGNOSTIC IMAGING REPORT ---
MRI OF THE BRAIN WITHOUT AND WITH IV CONTRAST CLINICAL HISTORY: ICM, new diplopia visual change COMPARISON STUDY: 09/10/2016 TECHNIQUE: Utilizing a 1.5 Tierney magnet and dedicated coil, multiplanar, multiecho imaging of the brain was performed pre and postcontrast administration. IV administration of 8.5 mL of Gadavist contrast was uneventful. FINDINGS: Stable to slightly improved exam compared to the prior study. Left superior frontal lobe lesion continue to show a small focus of restricted diffusion. Overall postcontrast size, however is diminished with current dimensions of 6 mm improved from the prior study of 1.1 cm. A posterior right occipital lesion shows a slight decrease in intensity of enhancement. Maximum dimension is 1 cm diminished from 1.4 cm. Small amount of surrounding vasogenic edema persists. There are no major new or interval findings. There is no midline shift. Mucosal thickening of the right mastoid air cells persists and is unchanged. Minimal chronic small vessel change of the periventricular deep white matter regions persists and is nonprogressive. IMPRESSION: Stable to slightly improved exam compared to the prior study. Metastatic disease slightly improved compared to the prior exam. No new or interval findings. Electronically signed by: Marshall Granado M.D. 11/22/2016 5:19 PM Dictated Date/Time: 11/22/2016 5:14 PM
[2016-12-14] MEDS ORDERED: MRLP17X PO (13:40)
[2016-12-14] MEDS ORDERED: LDDP5 TD (13:40)
[2016-12-14] MEDS ORDERED: SNK PO (13:40)
[2016-12-14] MEDS ORDERED: [UNRECOGNIZED DRUG - CODE] PO (13:40)
[2016-12-14] MEDS ORDERED: DLC5 PO (13:40)
[2016-12-14] MEDS ORDERED: DRGTP100 TD (13:40)
[2016-12-21] MEDS ORDERED: POLY335019 PO (11:25)
[2017-01-11] MEDS ORDERED: AMOX875T PO (11:04)
[2017-01-11] MEDS ORDERED: POLY335019 PO (11:04)
[2017-01-11] MEDS ORDERED: GFNSR600 PO (11:04)
[2017-01-11] MEDS ORDERED: DEXA2TAB PO (11:04)
[2017-01-11] MEDS ORDERED: [UNRECOGNIZED DRUG - CODE] PO (11:04)
[2017-01-11] MEDS ORDERED: SNK PO (11:04)
[2017-01-11] MEDS ORDERED: DLC5 PO (11:04)
[2017-01-11] MEDS ORDERED: OXGN (11:11)
[2017-01-11] MEDS ORDERED: FLUC100T4 PO (11:30)
== END 2016-11-22 17:49 | disposition home or self-care (01) ==
LOC: C.EDB 12:22 → C.EDC 17:49
DX: H53.2 Diplopia (principal); D49.6 Neoplasm of unspecified behavior of brain; I10 Essential (primary) hypertension; I50.9 Heart failure, unspecified; E78.5 Hyperlipidemia, unspecified; Z87.442 Personal history of urinary calculi; Z87.891 Personal history of nicotine dependence; Z79.899 Other long term (current) drug therapy; Z82.49 Family history of ischemic heart disease and other diseases of the circulatory system; Z82.0 Family history of epilepsy and other diseases of the nervous system

== ENCOUNTER → 2016-12-05 | Outpatient (CLI) | payer BC ==
[~2016-12-05] MED LIST changes: +AMOX875T PO; +DEXA2TAB PO; +DLC5 PO; +DRGTP100 TD; +DXM/4 PO; +FLUC100T4 PO; +GFNSR600 PO; +LDDP5 TD; +MRLP17X PO; +OPTIRAY 300 IV PRN; +OXGN; +POLY335019 PO; +SNK PO; +[UNRECOGNIZED DRUG - CODE] PO
--- NOTE | 2016-12-05 14:52 | DIAGNOSTIC IMAGING REPORT ---
IVP W/OR W/O TOMOGRAMS CLINICAL HISTORY: STONES nephrocalcinosis COMPARISON STUDY: None FINDINGS: Survey film shows a nonobstructive bowel pattern. There multiple pelvic vascular calcifications. There is a 3 mm nonobstructing upper pole left renal cortical calcification. Studies performed following the intravenous injection of 100 cc nonionic contrast. There is prompt opacification of the right as well as left renal collecting system. There is no evidence for hydronephrosis. Ureters normal in course and caliber. Post void shows no significant residual. IMPRESSION: 1. 3 mm nonobstructing left renal superior cortical calcification. 2. No evidence for an obstructing urinary tract calculus. 3. Otherwise Normal urinary tracts Electronically signed by: Marshall Granado M.D. 12/05/2016 2:51 PM Dictated Date/Time: 12/05/2016 2:47 PM
== END | disposition home or self-care (01) ==
LOC: C.RAD 12:33
PROVIDERS: ATTEND Nurse Practitioner Family
DX: C34.12 Malignant neoplasm of upper lobe, left bronchus or lung (principal); N20.0 Calculus of kidney

== ENCOUNTER 2016-12-10 14:14 | Inpatient (IN) | payer BC, OTHER ==
[~2016-12-10] VITALS: Ht 167.6 cm; Wt 81.0 kg
[~2016-12-10 14:14] MED LIST changes: -AMOX875T PO; -DEXA2TAB PO; -DLC5 PO; -DRGTP100 TD; -DXM/4 PO; -FLUC100T4 PO; -GFNSR600 PO; -LDDP5 TD; -MRLP17X PO; -OPTIRAY 320 IV PRN; -OXGN; -POLY335019 PO; -SNK PO; -[UNRECOGNIZED DRUG - CODE] PO
[2016-12-10] MEDS ORDERED: SODIUM CHLORIDE 0.9% 1000ML 1,000 ML IV STA (14:33)
[2016-12-10] MEDS ORDERED: FENTANYL PATCH REMOVE & WASTE STA (14:33)
[2016-12-10] MEDS ORDERED: HYDROmorphone INJ 1 MG/ML SYR IV STA ×2 (14:33→16:02)
[2016-12-10] MEDS ORDERED: KETOROLAC TROMETHAMINE 30 MG/ML VIAL IV STA (14:33)
[2016-12-10] MEDS ORDERED: FENTANYL 100 MCG/HR TDSY TD STA (14:33)
--- NOTE | 2016-12-10 14:38 | EMERGENCY ROOM VISIT NOTE ---
History Report prepared by Yamil: Tee Morris Under the Supervision of: Dr. Timbo Olson M.D. First contact with patient: 14:26 Chief Complaint: REFERRED BY DOCTOR Stated Complaint: LUNG & BRAIN CANCER - IN PAIN - REFERRED BY DOCTOR History of Present Illness The patient is a 71 year old male with a history of lung cancer who presents to the Emergency Room with complaints of worsening pain in his left abdomen. The pain is currently rated 9/10 in severity. The patient was believed to have a kidney stone on the left side since August. He had a CT scan earlier today. He received a call from Oncology and was referred to the ED. The CT report showed significant progression of his cancer. 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 The patient last had chemotherapy three weeks ago, and is due for another treatment in two days. He wears a 50 mcg Fentanyl patch, and will soon receive 100 mcg patches. The patient follows up with Dr. Powers, Hematology- Oncology. Source of History: patient, other (CT report) Onset: since August Position: abdomen (left side) Symptom Intensity: 9/10 Timing: worsening Modifying Factors (Relieving): narcotics Review of Systems See HPI for pertinent positives & negatives. A total of 10 systems reviewed and were otherwise negative. Past Medical & Surgical Medical Problems: (1) Benign hypertension (2) Congestive Heart Failure Nos (3) Hyperlipidemia (4) Hyperlipidemia Nec/Nos (5) Hypertension Nos (6) Hypoxia (7) Kidney stone (8) Lung cancer (9) Syncope and collapse Family History Congestive heart failure FHx: neurologic disorder Heart disease Social History Smoking Status: Former Smoker Alcohol Use: none Marital Status: Housing Status: lives with family Occupation Status: retired Current/Historical Medications Scheduled Atorvastatin (Lipitor), 20 MG PO HS B-Complex Vitamins (Vitamin B Complex), 1 TAB PO DAILY Dexamethasone (Decadron), 20 MG PO UD Sertraline (Zoloft), 100 MG PO DAILY Tiotropium Hatch (Spiriva Respimat), 2 PUFFS PO DAILY Scheduled PRN Albuterol Sulf (Proventil 0.083% 2.5MG/3ML), 2.5 MG INH QID PRN for SOB/Wheezing Hydrocodone/Acetaminophen 10MG/325MG (Monon 10MG/325MG), 1 TAB PO Q4H PRN for Pain Ondansetron Hcl (Zofran), 8 MG PO Q8H PRN for Nausea Allergies Coded Allergies: No Known Allergies (Unverified , 11/22/16) Physical Exam Vital Signs Date Time Temp Pulse Resp B/P (MAP) Pulse Ox O2 Delivery O2 Flow Rate FiO2 12/10/16 18:30 84 12 145/94 96 Nasal Cannula 2.0 12/10/16 17:00 87 11 99 Nasal Cannula 2.0 12/10/16 16:48 91 10 147/96 95 Room Air 12/10/16 15:17 96 12/10/16 14:24 36.8 103 20 121/75 97 Room Air Physical Exam GENERAL: Patient is a healthy-appearing well-nourished male. Fentanyl patch in place. HEAD: Normocephalic atraumatic EYES: Ocular movements intact pupils equal and react to light OROPHARYNX mucous membranes are moist no exudates present no erythema or edema present NECK: Supple no nuchal rigidity CHEST: Good equal expansion LUNGS: Clear and equal to auscultation CARDIAC: Normal S1 and S2 ABDOMEN: Nonsurgical abdomen. Mildly tender throughout. BACK: No CVA tenderness EXTREMITIES: No pain upon palpation normal muscle strength in all groups no clubbing cyanosis or edema NEURO: Patient is following commands and answering questions appropriately. Alert and oriented x3 Cranial Nerves 2-12 grossly intact Medical Decision & Procedures Laboratory Results 12/10/16 15:14 Red Blood Count 3.94, Mean Corpuscular Volume 90.6, Mean Corpuscular Hemoglobin 29.2, Mean Corpuscular Hemoglobin Concent 32.2, Mean Platelet Volume 9.5, Neutrophils (%) (Auto) 74.2, Lymphocytes (%) (Auto) 13.4, Monocytes (%) (Auto) 6.9, Eosinophils (%) (Auto) 4.1, Basophils (%) (Auto) 0.3, Neutrophils # (Auto) 6.49, Lymphocytes # (Auto) 1.17, Monocytes # (Auto) 0.60, Eosinophils # (Auto) 0.36, Basophils # (Auto) 0.03 12/10/16 15:14 Test 12/10/16 15:14 White Blood Count 8.75 K/uL (4.8-10.8) Red Blood Count 3.94 M/uL (4.7-6.1) Hemoglobin 11.5 g/dL (14.0-18.0) Hematocrit 35.7 % (42-52) Mean Corpuscular Volume 90.6 fL (80-100) Mean Corpuscular Hemoglobin 29.2 pg (25-34) Mean Corpuscular Hemoglobin Concent 32.2 g/dl (32-36) Platelet Count 232 K/uL (130-400) Mean Platelet Volume 9.5 fL (7.4-10.4) Neutrophils (%) (Auto) 74.2 % Lymphocytes (%) (Auto) 13.4 % Monocytes (%) (Auto) 6.9 % Eosinophils (%) (Auto) 4.1 % Basophils (%) (Auto) 0.3 % Neutrophils # (Auto) 6.49 K/uL (1.4-6.5) Lymphocytes # (Auto) 1.17 K/uL (1.2-3.4) Monocytes # (Auto) 0.60 K/uL (0.11-0.59) Eosinophils # (Auto) 0.36 K/uL (0-0.5) Basophils # (Auto) 0.03 K/uL (0-0.2) RDW Standard Deviation 54.5 fL (36.4-46.3) RDW Coefficient of Variation 16.6 % (11.5-14.5) Immature Granulocyte % (Auto) 1.1 % Immature Granulocyte # (Auto) 0.10 K/uL (0.00-0.02) Urine Color DK YELLOW Urine Appearance CLEAR (CLEAR) Urine pH 6.0 (4.5-7.5) Urine Specific Freeborn 1.042 (1.000-1.030) Urine Protein NEG (NEG) Urine Glucose (UA) NEG (NEG) Urine Ketones NEG (NEG) Urine Occult Blood NEG (NEG) Urine Nitrite NEG (NEG) Urine Bilirubin NEG (NEG) Urine Urobilinogen NEG (NEG) Urine Leukocyte Esterase NEG (NEG) Anion Gap 9.0 mmol/L (3-11) Est Creatinine Clear Calc Drug Dose 56.8 ml/min Estimated GFR () 70.1 Estimated GFR (Non- 60.5 BUN/Creatinine Ratio 18.4 (10-20) Calcium Level 8.7 mg/dl (8.5-10.1) Total Bilirubin 0.3 mg/dl (0.2-1) Direct Bilirubin < 0.1 mg/dl (0-0.2) Aspartate Amino Transf (AST/SGOT) 46 U/L (15-37) Alanine Aminotransferase (ALT/SGPT) 64 U/L (12-78) Alkaline Phosphatase 155 U/L (45-117) Total Protein 6.7 gm/dl (6.4-8.2) Albumin 3.1 gm/dl (3.4-5.0) Lipase 62 U/L (73-393) Labs reviewed by ED physician. Medications Administered Medications (Trade) Dose Ordered Sig/Allison Route Start Time Stop Time Status Last Admin Dose Admin Sodium Chloride 1,000 ml @ 999 mls/hr Q1H1M STAT IV 12/10/16 14:33 12/10/16 15:33 DC 12/10/16 15:25 999 MLS/HR Ketorolac Tromethamine (Toradol Inj) 30 mg NOW STAT IV 12/10/16 14:33 12/10/16 14:36 DC 12/10/16 15:25 30 MG Hydromorphone HCl (Dilaudid Inj) 1 mg NOW STAT IV 12/10/16 14:33 12/10/16 14:37 DC 12/10/16 15:25 1 MG Miscellaneous (Fentanyl Patch Remove & Waste) 1 ea NOW STAT N/A 12/10/16 14:33 12/10/16 14:37 DC 12/10/16 15:42 1 EA Fentanyl (Duragesic Patch) 100 mcg NOW STAT TD 12/10/16 14:33 12/10/16 14:37 DC 12/10/16 15:42 100 MCG Hydromorphone HCl (Dilaudid Inj) 1 mg NOW STAT IV 12/10/16 16:02 12/10/16 16:04 DC 12/10/16 16:21 1 MG Promethazine HCl 25 mg/Sodium Chloride 51 ml @ 204 mls/hr NOW STAT IV 12/10/16 16:02 12/10/16 16:16 DC 12/10/16 16:21 204 MLS/HR ED Course 1428: Past medical records reviewed. The patient was evaluated in room C2b. A complete history and physical examination was performed. 1433: Fentanyl 100 mcg TD, Fentanyl Patch remove & waste 1 ea, Dilaudid 1 mg IV , Toradol 30 mg IV, NSS 1000 ml @ 999 mls/hr. 1602: Promethazine HCl 25 mg / NSS 51 ml @ 204 mls/hr, Dilaudid 1 mg IV. 1634: Discussed the case with Dr. Zurita, [facility]. The patient will be evaluated. Medical Decision Differential diagnosis: Etiologies such as cancer, appendicitis, diverticulitis, PUD, biliary pathology , UTI, pancreatitis, obstruction, mesenteric ischemia, aortic pathology, infections, inflammatory bowel disease, renal colic, as well as others were entertained. Blood Pressure Screening: Patient was found to have normal blood pressure on screening and does not require follow up. Medication Reconciliation: I attest that I have personally reviewed the patient' s current medication list This 71-year-old male sent in by oncology. The patient is requesting his results from his CAT scan. This was reviewed with the patient. He is having significant amounts pain therefore an IV was established, the patient was given 1 mg of Dilaudid 2, Toradol, Phenergan. His 50 g fentanyl patch was removed and 100 g fentanyl patch was replaced. He is requesting to be admitted for intractable abdominal pain. I did discuss the case with both case management as well as the hospitalist service who agreed to admit the patient. Patient was in agreement with the treatment plan. Consults Time Called: 1630 Consulting Physician: Dr. Zurita, [facility]. Returned Call: 1634 The patient will be evaluated. Impression Primary Impression: Intractable abdominal pain Scribe Attestation The scribe's documentation has been prepared under my direction and personally reviewed by me in its entirety. I confirm that the note above accurately reflects all work, treatment, procedures, and medical decision making performed by me. Departure Information Dispostion Being Evaluated By Hospitalist Referrals Nirmala Delacruz (PCP) Patient Instructions My [facility]
[2016-12-10 15:26] LABS: URINE APPEARANCE CLEAR (CLEAR); URINE BILIRUBIN NEG (NEG); URINE COLOR DK YELLOW; URINE NITRITE NEG (NEG); URINE SPECIFIC GRAVITY 1.042 (1.000-1.030); UROBILINOGEN NEG (NEG)
[2016-12-10 15:28] LABS: MANUAL MICROSCOPIC REQUIRED? NO; REVIEW REQ? NO
[2016-12-10 15:43] LABS: ALT/SGPT 64 U/L (12-78); BLOOD UREA NITROGEN 22 mg/dl (7-18); BUN/CREATININE RATIO 18.4 (10-20); CALCIUM 8.7 mg/dl (8.5-10.1); CARBON DIOXIDE 24 mmol/L (21-32); CHLORIDE 106 mmol/L (98-107); GLUCOSE 113 mg/dl (70-99); POTASSIUM 4.1 mmol/L (3.5-5.1); SODIUM 139 mmol/L (136-145)
[2016-12-10 15:46] LABS: ALKALINE PHOSPHATASE 155 U/L (45-117); AST/SGOT 46 U/L (15-37)
[2016-12-10] MEDS ORDERED: DXM/4 PO (15:50)
[2016-12-10] MEDS ORDERED: PROMETHAZINE HCL INJ 25 MG in SODIUM CHLORIDE 0.9% 50ML 50 ML IV STA (16:02)
[2016-12-10 17:03] LABS: BASO % 0.3 %; BASO ABS # 0.03 K/uL (0-0.2); COMPLETE YES; EOS % 4.1 %; HEMATOCRIT 35.7 % (42-52); IG% 1.1 %; LYMPH % 13.4 %; LYMPH ABS # 1.17 K/uL (1.2-3.4); MEAN CELL VOLUME 90.6 fL (80-100); MEAN CORPUSCULAR HEMOGLOBIN 29.2 pg (25-34); MEAN CORPUSCULAR HGB CONC 32.2 g/dl (32-36); MEAN PLATELET VOLUME 9.5 fL (7.4-10.4); MONO % 6.9 %; NEUT % 74.2 %; PLATELET COUNT 232 K/uL (130-400); RED BLOOD COUNT 3.94 M/uL (4.7-6.1); WHITE BLOOD COUNT 8.75 K/uL (4.8-10.8)
--- NOTE | 2016-12-10 18:35 | History and Physical ---
History & Physical Date & Time of Service: Dec 10, 2016 at 18:16 Chief Complaint: Lung & Brain Cancer - In Pain - Referred By Doctor Primary Care Physician: Nirmala Delacruz History of Present Illness 71 year old male with a PMH of metastatic lung cancer that came to the emergency department after outpatient CT scan showed worsening extension of his lung cancer to his chest wall. Patient had been having intolerable pain over the last few days. The pain is located over the left side of the lower chest wall. The pain radiates around to the back and is made worse by taking a deep breath in. He describes it as a dull annoying pain that is worse in certain positions and he rates it as a 9/10 despite being on a 50mcg fentanyl patch. Patient had a chest CT scan as an outpatient which showed worsening extension of his lung cancer in the lower and upper lung regions as well as worsening chest wall invasion and abdominal CT showed increased paraaortic/paravertebral nodules and increase in hepatic dome metastasis. 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 He follows with Dr. Powers and Dr. Corona for this. He is receiving his 2nd dose of taxol on Saturday. This will be his 3rd round of chemotherapy. He has received radiation therapy in the past but has been told that this will no longer benefit him. He also received focused brain radiation in the past. 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 Status post 4 cycles of carboplatin/etoposide for recurrent/progressive disease in brain/left hemithorax Chemotherapy completed May 2016 Progression of metastatic disease on brain MRI 09/10/2016 Status: Chronic Family History Congestive heart failure FHx: neurologic disorder Heart disease Social History Smoking Status: Former Smoker (30-40 pack year hx) Marital Status: Occupational Status: retired Immunizations History of Influenza Vaccine: Yes Influenza Vaccine Date: Feb 15, 2014 History of Tetanus Vaccine?: Unknown History of Pneumococcal: Unknown Pneumococcal Date: Jun 05, 2011 History of Hepatitis B Vaccine: Unknown Hepatitis Immunization Date: Aug 06, 2008 Multi-Drug Resistant Organisms History of MDRO: No Allergies Coded Allergies: No Known Allergies (Unverified , 11/22/16) Home Medications Scheduled Atorvastatin (Lipitor), 20 MG PO HS B-Complex Vitamins (Vitamin B Complex), 1 TAB PO DAILY Dexamethasone (Decadron), 20 MG PO UD Sertraline (Zoloft), 100 MG PO DAILY Tiotropium [place] (Spiriva Respimat), 2 PUFFS PO DAILY Scheduled PRN Albuterol Sulf (Proventil 0.083% 2.5MG/3ML), 2.5 MG INH QID PRN for SOB/Wheezing Hydrocodone/Acetaminophen 10MG/325MG ([place] 10MG/325MG), 1 TAB PO Q4H PRN for Pain Ondansetron Hcl (Zofran), 8 MG PO Q8H PRN for Nausea Review of Systems Constitutional: + sweats, + weakness, + fatigue, No fever, No chills, No weight loss Respiratory: No cough, No sputum, No wheezing, No shortness of breath Cardiovascular: + chest pain, No edema, No palpitations (left chest wall) Abdomen: + constipation, No nausea, No vomiting, No diarrhea Musculoskeletal: No swelling, No calf pain Psychiatric: No depression symptoms, No anhedonism Hematologic / Lymphatic: No abnormal bleeding/bruising, No clotting problems, No swollen lymph nodes Physical Exam Vital Signs Date Time Temp Pulse Resp B/P (MAP) Pulse Ox O2 Delivery O2 Flow Rate FiO2 12/10/16 17:00 87 11 99 Nasal Cannula 2.0 12/10/16 16:48 91 10 147/96 95 Room Air 12/10/16 15:17 96 12/10/16 14:24 36.8 103 20 121/75 97 Room Air General Appearance: WD/WN, no apparent distress, + pertinent finding (pale) Head: normocephalic, atraumatic Eyes: PERRL, EOMI, sclerae normal ENT: hearing grossly normal, pharynx normal Neck: supple, no adenopathy, thyroid normal, no JVD, no carotid bruits, trachea midline Respiratory/Chest: chest non-tender, lungs clear, normal breath sounds, no respiratory distress, no accessory muscle use, + pertinent finding (pain on palpation over lower left chest wall) Cardiovascular: regular rate, rhythm, no edema, normal peripheral pulses Abdomen/GI: normal bowel sounds, non tender, soft, no pulsatile mass Extremities/Musculoskelatal: normal inspection, no calf tenderness, no pedal edema, normal range of motion, non-tender Neurologic/Psych: alert, normal mood/affect, oriented x 3 Skin: warm/dry, no rash Diagnostics Laboratory Results Results Past 24 Hours Test 12/10/16 15:14 Range/Units White Blood Count 8.75 4.8-10.8 K/uL Red Blood Count 3.94 4.7-6.1 M/uL Hemoglobin 11.5 14.0-18.0 g/dL Hematocrit 35.7 42-52 % Mean Corpuscular Volume 90.6 80-100 fL Mean Corpuscular Hemoglobin 29.2 25-34 pg Mean Corpuscular Hemoglobin Concent 32.2 32-36 g/dl Platelet Count 232 130-400 K/uL Mean Platelet Volume 9.5 7.4-10.4 fL Neutrophils (%) (Auto) 74.2 % Lymphocytes (%) (Auto) 13.4 % Monocytes (%) (Auto) 6.9 % Eosinophils (%) (Auto) 4.1 % Basophils (%) (Auto) 0.3 % Neutrophils # (Auto) 6.49 1.4-6.5 K/uL Lymphocytes # (Auto) 1.17 1.2-3.4 K/uL Monocytes # (Auto) 0.60 0.11-0.59 K/uL Eosinophils # (Auto) 0.36 0-0.5 K/uL Basophils # (Auto) 0.03 0-0.2 K/uL RDW Standard Deviation 54.5 36.4-46.3 fL RDW Coefficient of Variation 16.6 11.5-14.5 % Immature Granulocyte % (Auto) 1.1 % Immature Granulocyte # (Auto) 0.10 0.00-0.02 K/uL Urine Color DK YELLOW Urine Appearance CLEAR CLEAR Urine pH 6.0 4.5-7.5 Urine Specific [place] 1.042 1.000-1.030 Urine Protein NEG NEG Urine Glucose (UA) NEG NEG Urine Ketones NEG NEG Urine Occult Blood NEG NEG Urine Nitrite NEG NEG Urine Bilirubin NEG NEG Urine Urobilinogen NEG NEG Urine Leukocyte Esterase NEG NEG Sodium Level 139 136-145 mmol/L Potassium Level 4.1 3.5-5.1 mmol/L Chloride Level 106 98-107 mmol/L Carbon Dioxide Level 24 21-32 mmol/L Anion Gap 9.0 3-11 mmol/L Blood Urea Nitrogen 22 7-18 mg/dl Creatinine 1.20 0.60-1.40 mg/dl Est Creatinine Clear Calc Drug Dose 56.8 ml/min Estimated GFR () 70.1 Estimated GFR (Non- 60.5 BUN/Creatinine Ratio 18.4 10-20 Random Glucose 113 70-99 mg/dl Calcium Level 8.7 8.5-10.1 mg/dl Total Bilirubin 0.3 0.2-1 mg/dl Direct Bilirubin < 0.1 0-0.2 mg/dl Aspartate Amino Transf (AST/SGOT) 46 15-37 U/L Alanine Aminotransferase (ALT/SGPT) 64 12-78 U/L Alkaline Phosphatase 155 45-117 U/L Total Protein 6.7 6.4-8.2 gm/dl Albumin 3.1 3.4-5.0 gm/dl Lipase 62 73-393 U/L Impression Assessment and Plan 71 year old male with PMH of metastatic lung cancer presented to the ED with worsening left sided chest wall pain and was found to have worsening chest wall invasion of lung cancer on CT of the chest. Differential diagnosis includes worsening lung cancer causing pain (likely considering CT scan findings and physical exam findings), PE (less likely considering O2 sats normal and this pain has been chronic in nature), kidney stone (pain is not colicky in nature and no blood in urine therefore less likely ) Metastatic Lung Cancer (small cell carcinoma) - CT abdomen/pelvis and CT chest show worsening extension of lung cancer. - Receiving 2nd dose of taxol on Saturday (usually receives decadron 5 4mg tabs at 12 and 6 hours before chemo) - Control pain by increasing fentanyl patch from 50 -->100mcg, dilaudid 1mg Q4 PRN and 2mg Q6 PRN, [place] home med - Control nausea with zofran and phenergan - Consult Dr. Powers to decide plan going forward, may need palliative consult? COPD - continue albuterol and spiriva Constipation - senna and milk of mag HLD - lipitor Diet - Regular DVT prophylaxis - lovenox Code - FULL Level of Care Med/Surg Resuscitation Status FULL RESUSCITATION VTE Prophylaxis VTE Risk Assessment Done? Y/N: Yes Risk Level: High Given or contraindicated: Enoxaparin (Lovenox)SQ Reviewed: Pt Seen/Exam by Me History Pt feels his pain is better s/p increase in fentanyl patch and IV pain meds. Has been tolerating PO without issue at home and is hungry now. No SOB, but does have increased chest pain with deep breathing. This pain is unchanged. Pt states no bowel movement since Saturday. This happens more regularly now with ca tx and multiple medications. He does feel constipated and distended, but no tyler abd pain. Agree with HPI/ROS as noted. General Appearance: WD/WN, no apparent distress Eye Exam: bilateral eye normal inspection Respiratory: normal breath sounds, no respiratory distress Cardiovascular: normal peripheral pulses, regular rate, rhythm Gastrointestinal: non tender, soft, distended Extremities: non-tender, no pedal edema Neurologic/Psychiatric: alert, normal mood/affect, oriented x 3 Skin Characteristics: normal color, warm/dry Assessment/Plan Agree with plan as outlined above Progressive metastatic small cell lung ca with pain management issues Increase fentanyl patch with PRN PO meds IV if needed for break through, but should try PO first to establish plan for home change to MOM/senna for constipation
[2016-12-10] MEDS ORDERED: MAGNESIUM HYDROXIDE SUSP 30 ML UDC PO ONE (18:45)
[2016-12-10] MEDS ORDERED: ONDANSETRON INJ 2 MG/ML 2 ML VIAL IV PRN ×2 (18:45)
[2016-12-10] MEDS ORDERED: MAGNESIUM HYDROXIDE SUSP 30 ML UDC PO PRN ×2 (18:45)
[2016-12-10] MEDS ORDERED: ALUMINUM/MAGNESIUM/SIMETH (MAALOX MAX) 30 ML UDC PO PRN (18:45)
[2016-12-10] MEDS ORDERED: PROMETHAZINE HCL 25 MG TAB PO PRN (18:45)
[2016-12-10] MEDS ORDERED: ACETAMINOPHEN 325 MG TAB PO PRN (18:45)
[2016-12-10] MEDS ORDERED: ALBUTEROL 0.083% NEBU SOLN 3 ML VIAL INH PRN (19:00)
[2016-12-10] MEDS ORDERED: ONDANSETRON 8 MG TAB PO PRN (19:00)
[2016-12-10 19:14] VITALS: O2SAT 99
[2016-12-10 19:30] VITALS: BP 176/95; PULSE 83; TEMP 36.3; O2SAT 97
[2016-12-10] MEDS: HYDROCODONE/ACETAMI 10/325 TAB PO PRN (19:51)
[2016-12-10 20:21] VITALS: BP 176/95; PULSE 83; TEMP 36.3; BMI 29.2
[2016-12-10] MEDS: ENOXAPARIN 40 MG/0.4 ML SYR SQ SCH (21:38)
[2016-12-10] MEDS: ATORVASTATIN 20 MG TAB PO SCH (21:38)
[2016-12-10] MEDS: HYDROmorphone INJ 1 MG/ML SYR IV PRN (21:57)
[2016-12-10 23:50] VITALS: BP 158/88; PULSE 83; TEMP 36.6; O2SAT 92
[2016-12-11 03:35] VITALS: BP 116/71; PULSE 78; TEMP 36.7; O2SAT 96
[2016-12-11] MEDS: HYDROCODONE/ACETAMI 10/325 TAB PO PRN ×2 (04:19→20:31)
[2016-12-11] MEDS: HYDROmorphone INJ 2 MG/ML SYR/VIAL IV PRN ×3 (07:04→21:51)
[2016-12-11 07:28] VITALS: BP 152/89; PULSE 81; TEMP 36.4; O2SAT 94
[2016-12-11] MEDS: VITAMIN B COMPLEX TAB PO SCH (08:29)
[2016-12-11] MEDS: SENNA 8.6 MG TAB PO SCH (08:29)
[2016-12-11] MEDS: POLYETHYLENE (MIRALAX) 17 GM PACK PO PRN (08:35)
[2016-12-11] MEDS ORDERED: FENTANYL 100 MCG/HR TDSY TD SCH (09:00)
--- NOTE | 2016-12-11 10:36 | Oncology Consultation ---
Oncology/Heme Consultation Date of Consultation: Dec 11, 2016. Attending Physician: Juan Antonio Kolb D.O. Reason for Consultation: Asked to see patient with left costovertebral flank discomfort. History of small cell lung carcinoma History of Present Illness Mr. boykin is a 71-year-old gentleman with a history of small cell lung carcinoma. He presented with advanced but limited stage disease by definition in 2014. He received combined radiation therapy and chemotherapy that was completed in April of that year. December 2015 scans which show recurrent disease in the left lung and an MRI of the brain showed an area of involvement involving the right occiput. He was status post prophylactic cranial radiation. Percutaneous biopsy of the left lung confirmed recurrent disease and he was treated with carboplatinum [employer]-16. That therapy was completed in May 2016. He now presents with left costal vertebral or flank discomfort. Recent CT images and PET scans in October of this year showed progression of disease in the just recently started on Taxol as a single agent as a form of salvage. Updated CT scans were just done that show progression of disease. One of the areas of progression includes what would be an area of costal vertebral involvement on the left. I suspect this area is also affecting one of his costovertebral nerves or intercostal nerves leading to this pain. His performance status is easily graded now 2.0-3.0. On an ECOG scale Past Medical/Surgical History Medical Problems: (1) Back pain Status: Acute (2) Brain tumor Status: Acute (3) Chest pain Status: Acute (4) COPD exacerbation Status: Acute (5) Diplopia Status: Acute (6) Intractable abdominal pain Status: Acute (7) Loculated pleural effusion Status: Acute (8) Lung mass Status: Acute (9) Neutropenia Status: Acute (10) Radiation pneumonitis Status: Acute (11) Thrombocytopenia Status: Acute Family History Congestive heart failure FHx: neurologic disorder Heart disease Negative for carcinoma in a first-degree relatives there is a family history of prostate carcinoma. Social History Smoking Status: Former Smoker Marital Status: Housing Status: lives with family Occupation Status: retired Allergies Coded Allergies: No Known Allergies (Unverified , 11/22/16) Home Medications Scheduled Atorvastatin (Lipitor), 20 MG PO HS B-Complex Vitamins (Vitamin B Complex), 1 TAB PO DAILY Dexamethasone (Decadron), 20 MG PO UD Sertraline (Zoloft), 100 MG PO DAILY Tiotropium [place] (Spiriva Respimat), 2 PUFFS PO DAILY Scheduled PRN Albuterol Sulf (Proventil 0.083% 2.5MG/3ML), 2.5 MG INH QID PRN for SOB/Wheezing Hydrocodone/Acetaminophen 10MG/325MG ([place] 10MG/325MG), 1 TAB PO Q4H PRN for Pain Ondansetron Hcl (Zofran), 8 MG PO Q8H PRN for Nausea Current Inpatient Medications Current Inpatient Medications Medications (Trade) Dose Ordered Sig/[place]ison Route Start Time Stop Time Status Last Admin Dose Admin Enoxaparin Sodium (Lovenox Inj) 40 mg QPM SQ 12/10/16 21:00 01/09/17 20:59 12/10/16 21:38 40 MG Acetaminophen (Tylenol Tab) 650 mg Q4H PRN PO 12/10/16 18:45 01/09/17 18:44 Al Hydrox/Mg Hydrox/Simethicone (Maalox Max Susp) 15 ml Q4H PRN PO 12/10/16 18:45 01/09/17 18:44 Polyethylene (Miralax Powder Packet) 17 gm DAILY PRN PO 12/10/16 18:45 01/09/17 18:44 12/11/16 08:35 17 GM Senna (Senokot Tab) 8.6 mg QAM PO 12/11/16 08:00 01/10/17 08:59 12/11/16 08:29 8.6 MG Magnesium Hydroxide (Milk Of Magnesia Susp) 30 ml Q6H PRN PO 12/10/16 18:45 01/09/17 18:44 Hydromorphone HCl (Dilaudid Inj) 1 mg Q4 PRN IV 12/10/16 18:45 12/24/16 18:44 12/10/16 21:57 1 MG Hydromorphone HCl (Dilaudid Inj) 2 mg Q6 PRN IV 12/10/16 18:45 12/24/16 18:44 12/11/16 07:04 2 MG Ondansetron HCl (Zofran Inj) 4 mg Q4H PRN IV 12/10/16 18:45 01/09/17 18:44 Promethazine HCl (Phenergan Tab) 25 mg Q6H PRN PO 12/10/16 18:45 01/09/17 18:44 Albuterol Sulfate (Ventolin 0.083% 2.5MG/3ML Neb) 2.5 mg QID PRN INH 12/10/16 19:00 01/09/17 18:59 Atorvastatin Calcium (Lipitor Tab) 20 mg HS PO 12/10/16 21:00 01/09/17 20:59 12/10/16 21:38 20 MG Acetaminophen/ Hydrocodone Bitart ([place] 10/325 Tab) 1 tab Q4H PRN PO 12/10/16 19:00 12/24/16 18:59 12/11/16 04:19 1 TAB Ondansetron HCl (Zofran Tab) 8 mg Q8H PRN PO 12/10/16 19:00 01/09/17 18:59 Vitamin B Complex (Vitamin B Complex) 1 tab DAILY PO 12/11/16 08:00 01/10/17 08:59 12/11/16 08:29 1 TAB Miscellaneous Information (Order Awaiting Action) 1 ea QS N/A 12/11/16 00:00 01/10/17 00:00 Miscellaneous Information (Check Fentanyl Patch Placement) 1 ea QS N/A 12/11/16 16:00 01/10/17 15:59 Fentanyl (Duragesic Patch) 100 mcg Q72H TD 12/13/16 15:00 12/27/16 14:59 Miscellaneous (Fentanyl Patch Remove & Waste) 1 ea Q3D N/A 12/13/16 14:59 01/12/17 14:58 Dexamethasone (Decadron Tab) 4 mg BID PO 12/11/16 20:00 01/10/17 19:59 Review of Systems Constitutional: Negative for weight loss, night sweats, or fever Eyes: Negative for event change of vision ENT: Negative for epistaxis, nasal discharge, sore throat, or deafness Cardiovascular: Negative for chest pain, palpitations, dizziness, diaphoresis Respiratory: Negative for new shortness of breath,hemoptysis, or purulent cough Gastrointestinal: Negative for diarrhea, hematemesis, melena, nausea, vomiting , or dyspepsia Integumentary (skin): Negative for rash or jaundice discoloration Genitourinary: Negative for urinary frequency, hematuria, or dysuria Neurological: Negative for weakness, seizure activity, headache, or dizziness Lymphatic/Hematologic: Negative for petechiae, bleeding or new adenopathy Musculoskeletal: As reviewed there is pain in the left costovertebral angle area radiating some want to the anterior Allergic/Immunologic: Negative for unusual rash or pruritis. Physical Exam Date Time Temp Pulse Resp B/P (MAP) Pulse Ox O2 Delivery O2 Flow Rate FiO2 12/11/16 07:28 36.4 81 16 152/89 (110) 94 Nasal Cannula 2.0 12/11/16 03:35 36.7 78 18 116/71 (86) 96 Room Air 12/10/16 23:50 36.6 83 20 158/88 (111) 92 Room Air 12/10/16 23:35 Room Air 12/10/16 20:21 36.3 83 20 176/95 Nasal Cannula 2.0 12/10/16 19:30 36.3 83 20 176/95 (122) 97 2.0 12/10/16 19:14 82 20 158/90 99 Nasal Cannula 2.0 12/10/16 18:30 84 12 145/94 96 Nasal Cannula 2.0 12/10/16 17:00 87 11 99 Nasal Cannula 2.0 12/10/16 16:48 91 10 147/96 95 Room Air 12/10/16 15:17 96 12/10/16 14:24 36.8 103 20 121/75 97 Room Air Constitutional: vitals are stable. Eyes: Eyes are EDNA EOMI without conjuctival erythema or icterus. ENT: External examination was negative for masses. Neck: Negative for masses or palpable thyromegaly Respiratory: Lung sounds were generally clear bilaterally Cardiovascular: Heart was RRR without significant murmur, gallops aoe rubs Gastrointestinal: No palpable hepatic or splenomegaly. The abdomen was soft with normal bowel sounds. Lymphatic system: there was no palpable peripheral lymphadenopathy Musculoskeletal System: The musculoskeletal system seemed concordant with age. Skin: The skin was negative for jaundice. Neurologic exam: The exam was negative for any focal findings. Deep tendon reflexes were equal and symmetrical. Psychiatric exam: Was essentially negative with normal mood and effect. Extremities: Negative for edema or erythema Laboratory Results Last 24 Hours Test 12/10/16 15:14 12/11/16 10:15 White Blood Count 8.75 K/uL Red Blood Count 3.94 M/uL Hemoglobin 11.5 g/dL Hematocrit 35.7 % Mean Corpuscular Volume 90.6 fL Mean Corpuscular Hemoglobin 29.2 pg Mean Corpuscular Hemoglobin Concent 32.2 g/dl Platelet Count 232 K/uL Mean Platelet Volume 9.5 fL Neutrophils (%) (Auto) 74.2 % Lymphocytes (%) (Auto) 13.4 % Monocytes (%) (Auto) 6.9 % Eosinophils (%) (Auto) 4.1 % Basophils (%) (Auto) 0.3 % Neutrophils # (Auto) 6.49 K/uL Lymphocytes # (Auto) 1.17 K/uL Monocytes # (Auto) 0.60 K/uL Eosinophils # (Auto) 0.36 K/uL Basophils # (Auto) 0.03 K/uL RDW Standard Deviation 54.5 fL RDW Coefficient of Variation 16.6 % Immature Granulocyte % (Auto) 1.1 % Immature Granulocyte # (Auto) 0.10 K/uL Urine Color DK YELLOW Urine Appearance CLEAR Urine pH 6.0 Urine Specific [place] 1.042 Urine Protein NEG Urine Glucose (UA) NEG Urine Ketones NEG Urine Occult Blood NEG Urine Nitrite NEG Urine Bilirubin NEG Urine Urobilinogen NEG Urine Leukocyte Esterase NEG Sodium Level 139 mmol/L Potassium Level 4.1 mmol/L Chloride Level 106 mmol/L Carbon Dioxide Level 24 mmol/L Anion Gap 9.0 mmol/L Blood Urea Nitrogen 22 mg/dl Creatinine 1.20 mg/dl Est Creatinine Clear Calc Drug Dose 56.8 ml/min Estimated GFR () 70.1 Estimated GFR (Non- 60.5 BUN/Creatinine Ratio 18.4 Random Glucose 113 mg/dl Calcium Level 8.7 mg/dl Total Bilirubin 0.3 mg/dl Direct Bilirubin < 0.1 mg/dl Aspartate Amino Transf (AST/SGOT) 46 U/L Alanine Aminotransferase (ALT/SGPT) 64 U/L Alkaline Phosphatase 155 U/L Total Protein 6.7 gm/dl Albumin 3.1 gm/dl Lipase 62 U/L Hepatitis C Antibody Screen NEG Assessment & Plan Recent CT scans were reviewed. Again I suspect the area of involvement with progression of disease is responsible for his pain. This area is located at the base of his left lung and is area that was most likely involve intercostal nerves. I did review the x-rays with radiation therapy and I believe radiation therapy might be helpful in diminishing his pain. Decadron should also be used and I will write an order for 4 mg twice a day. Radiation therapy will also be consulted. I did speak with the patient today concerning the limitations that we have in being able to control this process systemically. His quality of life is being affected by this disease and unfortunately and predictably I suspect we are not going to be able to control this with further chemotherapy. We had a tyler discussion in regards to this. We will see him in clinic in the next week or 2 to discuss this further as to whether he wants to pursue further chemotherapy, or pursue experimental therapy. For now though I would go on with radiation therapy for palliation along with steroids and narcotics as necessary to control his pain.
[2016-12-11 11:14] VITALS: BP 102/68; PULSE 92; TEMP 36.5; O2SAT 92
--- NOTE | 2016-12-11 11:49 | Radiation Oncology Consult ---
Radiation Oncology Consult Date / Reason Dec 11, 2016. Physicians Medical Oncologist: Dr. Onofre Powers Radiation Oncologist: Dr. 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 Status post 4 cycles of carboplatin/etoposide for recurrent/progressive disease in brain/left hemithorax Chemotherapy completed May 2016 Progression of metastatic disease on brain MRI 09/10/2016 Status post Brain SBRT - 2400 cGy in 3 fractions - 10/04/2016 Progression of metastatic disease in left posterior chest wall and liver - PET/ CT - 11/07/2016 Treated with single agent Taxol with Dr. Powers - stopped 11/2016 due to progression of disease Last Edited By: Octavio Badillo on Dec 11, 2016 11:38 History of Present Illness I am seeing Mr. boykin in consultation at the request of Dr. Onofre Powers The patient was seen at bedside with his . ECOG PS : 2 - 3 Mr. 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 More recently, the patient was diagnosed with progression of disease involving the liver as well as locally in the posterior left chest wall determined by a PET/CT scan on 11/07/2016. The patient was started on single agent Taxol underneath the supervision of Dr. Onofre Powers. The patient did have restaging scans which include a CT of the chest/abdomen/pelvis on 2016 which did show progression of disease. The patient was suffering from intractable pain and was admitted to the hospital for pain management and control. Dr. Powers has evaluated the patient and recommended consideration of palliative radiation therapy. We are now seeing the patient in consultation. Currently, the patient is having significant pain and discomfort in his left posterior chest wall. Pacemaker Hx Pacemaker: No Past History Past Medical/Surgical History: Cancer, High Cholesterol, CHF, COPD, Hypertension Social History Smoking Status: Former Smoker Hx Tobacco Use In Past Year?: No Quit Date: Mar 30, 2014 Do You Dip or Chew Tobacco: No Hx Alcohol Use: No Hx Substance Use : No Allergies Coded Allergies: No Known Allergies (Unverified , 11/22/16) Home Medications Scheduled Atorvastatin (Lipitor), 20 MG PO HS B-Complex Vitamins (Vitamin B Complex), 1 TAB PO DAILY Dexamethasone (Decadron), 20 MG PO UD Sertraline (Zoloft), 100 MG PO DAILY Tiotropium [place] (Spiriva Respimat), 2 PUFFS PO DAILY Scheduled PRN Albuterol Sulf (Proventil 0.083% 2.5MG/3ML), 2.5 MG INH QID PRN for SOB/Wheezing Hydrocodone/Acetaminophen 10MG/325MG (Juana Diaz 10MG/325MG), 1 TAB PO Q4H PRN for Pain Ondansetron Hcl (Zofran), 8 MG PO Q8H PRN for Nausea Review of Systems Extremities: Hx Deep Vein Thrombosis: No Eyes: Hx Cataracts: No Ear/Hearing: Ear Side: Bilateral Hearing Ability: Hard of Hearing Hearing Aid: Bilateral Edema: Present?: No Pain Management Side: Left Patient Preferred Pain Scale: 0 - 10 Initial Pain Intensity: 0.0 Pain Description: Dull Physical Exam Height: 5 (Feet) 6.00 (Inches) 167.6 (Centimeters) 1.6764 (Meters) Weight: 178 (Pounds) 12.7 (Ounces) 81.100 (Kilograms) 38681.000 (Grams) Date Time Temp Pulse Resp B/P (MAP) Pulse Ox O2 Delivery O2 Flow Rate FiO2 12/11/16 11:14 36.5 92 18 102/68 (79) 92 12/11/16 08:30 Nasal Cannula 2.0 12/11/16 07:28 36.4 81 16 152/89 (110) 94 Nasal Cannula 2.0 12/11/16 03:35 36.7 78 18 116/71 (86) 96 Room Air 12/10/16 23:50 36.6 83 20 158/88 (111) 92 Room Air 12/10/16 23:35 Room Air 12/10/16 20:21 36.3 83 20 176/95 Nasal Cannula 2.0 12/10/16 19:30 36.3 83 20 176/95 (122) 97 2.0 12/10/16 19:14 82 20 158/90 99 Nasal Cannula 2.0 12/10/16 18:30 84 12 145/94 96 Nasal Cannula 2.0 12/10/16 17:00 87 11 99 Nasal Cannula 2.0 12/10/16 16:48 91 10 147/96 95 Room Air 12/10/16 15:17 96 12/10/16 14:24 36.8 103 20 121/75 97 Room Air General Appearance: + mild distress Head: normocephalic, atraumatic Eyes: normal inspection, PERRL ENT: normal ENT inspection Neck: supple, no adenopathy Respiratory/Chest: lungs clear, normal breath sounds, no respiratory distress, + pertinent finding (Tender to palpation the left posterior chest wall at the level of the thoracic spine/lung base) Cardiovascular: regular rate, rhythm, no edema, no gallop, no JVD, no murmur Abdomen/GI: normal bowel sounds, non tender, soft, no organomegaly Back: normal inspection Extremities: normal inspection 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 Metastatic disease slightly improved compared to the prior exam. No new or interval findings. CT Thorax (12/10/2016) - IMPRESSION: 1. Local progression of the patient's neoplastic disease at the left lung base and to a lesser extent left upper lung region. 2. Moderately progressive retrocrural adenopathy of the lower chest region. 3. Micronodularity of the right hemithorax is stable. 4. Nodular pathology left base now shows evidence for developing chest wall invasion. CT Abdomen/Pelvis (12/10/2016) - IMPRESSION: Significant progression of metastatic disease since CT of August 02, 2016 and slight progression of metastatic disease since PET/CT of November 07, 2016. Slight increase in size of para -aortic/left paravertebral nodules and slight interval increase in size of a right hepatic dome metastasis. Assessment & Recommendations Mr. Boykin is a 71-year-old gentleman with extensive stage small cell lung carcinoma previously treated with chemotherapy and radiation therapy to the chest followed by multiple courses of treatment to the brain due to metastatic disease. More recently, the patient was shown to have progression of disease involving the left posterior chest wall and visceral metastasis to the liver and was treated with a course of Taxol chemotherapy underneath the supervision of Dr. Onofre Powers. Unfortunately, the patient suffered from progression of disease and is having intractable pain and we have been asked to evaluate the patient for consideration of palliative radiation therapy. Based on the patient 's imaging findings and symptoms, we have recommended palliative radiation therapy to the lower left chest wall. We will bring the patient down today for CT simulation for treatment planning. We have explained the indications, alternatives, benefits, risks and side effects of radiation therapy to the lung. We have explained the most common side effects with include but are not limited to skin erythema, skin break down , pulmonary fibrosis, adhesion development, radiation pneumonitis, rib fracture , heart failure and heart disease, esophagitis, development of fistula, fatigue and development of secondary malignancy. We did also review the fact that there is an increased risk of developing side effects in general from overlap from his previous radiation therapy course and this radiation therapy course. We have explained the CT simulation process and treatment planning. We explained what to expect before, during and after treatment on a regular basis. The patient understands and would be willing to consent to treatment. The patient and family had multiple questions which were answered to their full satisfaction. Thank you for allowing us to participate in the care of this patient. This chart was completed in part utilizing [employer] Speech Voice Recognition software. Attempts were made to minimize the grammatical errors, random word insertions, pronoun errors and incomplete sentences. Any formal questions or concerns about the content, text or information contained within the body of this dictation should be directly addressed to the provider for clarification. Octavio Badillo MD Department of Radiation Oncology [facility] Total Time In Consultation I spent 30 minutes examining and counseling the patient. I spent 15 minutes completing this note. Copy To Onofre Powers D.O.
[2016-12-11 15:36] VITALS: BP 106/67; PULSE 84; TEMP 36.4; O2SAT 98
--- NOTE | 2016-12-11 16:00 | Progress Note ---
Subjective Date of Service: Dec 11, 2016. Subjective Pt evaluation today including: conversation w/ patient, physical exam, chart review, lab review, review of studies, conversation w/ customer care consultant, review of inpatient medication list Pt resting comfortably in bed Pt reports pain improved with addition of fentnyl patch No shortness of breath or chest pain Problem List Medical Problems: (1) Back pain Status: Acute (2) Brain tumor Status: Acute (3) Chest pain Status: Acute (4) COPD exacerbation Status: Acute (5) Diplopia Status: Acute (6) Intractable abdominal pain Status: Acute (7) Loculated pleural effusion Status: Acute (8) Lung mass Status: Acute (9) Neutropenia Status: Acute (10) Radiation pneumonitis Status: Acute (11) Thrombocytopenia Status: Acute Review of Systems Constitutional: No fever, No chills, No sweats, No weight loss Eyes: No worsening of vision, No eye pain, No redness, No discharge ENT: No hearing loss, No unusual epistaxis, No nasal symptoms, No sore throat Respiratory: No cough, No sputum, No wheezing, No shortness of breath Cardiac: No chest pain, No orthopnea, No PND, No edema Abdomen: No pain, No nausea, No vomiting, No diarrhea, No constipation Musculoskeletal: No joint pain, No muscle pain, No swelling Male : No dysuria, No urinary frequency, No incontinence, No nocturia more than once/night Neurologic: No memory loss, No paralysis, No weakness Psychiatric: No depression symptoms, No anhedonism, No anxiety Skin: No rash, No itch Objective Vital Signs Date Time Temp Pulse Resp B/P (MAP) Pulse Ox O2 Delivery O2 Flow Rate FiO2 12/11/16 15:36 36.4 84 18 106/67 (80) 98 2.0 12/11/16 11:14 36.5 92 18 102/68 (79) 92 12/11/16 08:30 Nasal Cannula 2.0 12/11/16 07:28 36.4 81 16 152/89 (110) 94 Nasal Cannula 2.0 12/11/16 03:35 36.7 78 18 116/71 (86) 96 Room Air 12/10/16 23:50 36.6 83 20 158/88 (111) 92 Room Air 12/10/16 23:35 Room Air 12/10/16 20:21 36.3 83 20 176/95 Nasal Cannula 2.0 12/10/16 19:30 36.3 83 20 176/95 (122) 97 2.0 12/10/16 19:14 82 20 158/90 99 Nasal Cannula 2.0 12/10/16 18:30 84 12 145/94 96 Nasal Cannula 2.0 12/10/16 17:00 87 11 99 Nasal Cannula 2.0 12/10/16 16:48 91 10 147/96 95 Room Air Physical Exam General Appearance: WD/WN, + mild distress Eyes: normal inspection, PERRL, EOMI, sclerae normal Neck: supple, no adenopathy, thyroid normal, no JVD Respiratory/Chest: chest non-tender, lungs clear, normal breath sounds, no respiratory distress Cardiovascular: regular rate, rhythm, no edema, no gallop, no JVD Abdomen: normal bowel sounds, non tender, soft, no organomegaly Extremities: normal range of motion, non-tender, normal inspection, no pedal edema Neurologic/Psychiatric: no motor/sensory deficits, alert Laboratory Results Last 24 Hours Test 12/11/16 10:27 Lactate Dehydrogenase 227 U/L Assessment and Plan 71 year old male with PMH of metastatic lung cancer presented to the ED with worsening left sided chest wall pain and was found to have worsening chest wall invasion of lung cancer on CT of the chest. Differential diagnosis includes worsening lung cancer causing pain (likely considering CT scan findings and physical exam findings), PE (less likely considering O2 sats normal and this pain has been chronic in nature), kidney stone (pain is not colicky in nature and no blood in urine therefore less likely ) Metastatic Lung Cancer (small cell carcinoma) - CT abdomen/pelvis and CT chest show worsening extension of lung cancer. - Oncology consulted, chemo on hold, reviewed CT chest - consulted radiation oncology - Pain controlled on fentanyl 100 mcg q 72 hrs, dilaudid 1mg Q4 PRN and 2mg Q6 PRN, [place] home med - Control nausea with zofran and phenergan COPD stable, no exacerbation - continue albuterol and spiriva Constipation - senna and milk of mag HLD - lipitor Diet - Regular DVT prophylaxis - lovenox Code - FULL
[2016-12-11] MEDS: CHECK FENTANYL PATCH PLACEMENT SCH ×2 (16:08→23:55)
[2016-12-11] MEDS: HYDROmorphone INJ 1 MG/ML SYR IV PRN (18:03)
[2016-12-11 19:19] VITALS: BP 97/64; PULSE 95; TEMP 36.6; O2SAT 95
[2016-12-11] MEDS: ATORVASTATIN 20 MG TAB PO SCH (20:31)
[2016-12-11] MEDS: ENOXAPARIN 40 MG/0.4 ML SYR SQ SCH (20:32)
[2016-12-11] MEDS: DEXAMETHASONE 4 MG TAB PO SCH (20:32)
[2016-12-11 23:35] VITALS: BP 124/77; PULSE 92; TEMP 36.3; O2SAT 96
[2016-12-12 03:39] VITALS: BP 106/63; PULSE 91; TEMP 36.9; O2SAT 98
[2016-12-12] MEDS: HYDROmorphone INJ 2 MG/ML SYR/VIAL IV PRN ×5 (05:47→22:15)
[2016-12-12 07:04] VITALS: BP 129/78; PULSE 89; TEMP 36.3; O2SAT 92
[2016-12-12] MEDS: POLYETHYLENE (MIRALAX) 17 GM PACK PO PRN (07:38)
[2016-12-12] MEDS: DEXAMETHASONE 4 MG TAB PO SCH ×2 (07:38→22:07)
[2016-12-12] MEDS: SENNA 8.6 MG TAB PO SCH (07:39)
[2016-12-12] MEDS: TIOTROPIUM BROMIDE 5 PUFF/90 MCG INH INH SCH (07:39)
[2016-12-12] MEDS: VITAMIN B COMPLEX TAB PO SCH (07:39)
[2016-12-12] MEDS: CHECK FENTANYL PATCH PLACEMENT SCH ×2 (07:39→16:06)
[2016-12-12] MEDS ORDERED: SOD PHOSPHATE/SOD BIPHOSPHATE ENEMA 132 ML BTL PR STA (09:03)
[2016-12-12] MEDS ORDERED: NURSING VERBAL MED ORDER ONE (10:30)
[2016-12-12 11:09] VITALS: BP 116/76; PULSE 92; TEMP 36.5; O2SAT 93
[2016-12-12] MEDS ORDERED: BISACODYL 5 MG TABEC PO ONE (13:00)
--- NOTE | 2016-12-12 15:36 | Progress Note ---
Subjective Date of Service: Dec 12, 2016. Subjective Pt evaluation today including: conversation w/ patient, physical exam, chart review, lab review, review of studies, review of inpatient medication list Pt reports worsening rib pain No F/C/N/V/D No acute events overnight Problem List Medical Problems: (1) Back pain Status: Acute (2) Brain tumor Status: Acute (3) Chest pain Status: Acute (4) COPD exacerbation Status: Acute (5) Diplopia Status: Acute (6) Intractable abdominal pain Status: Acute (7) Loculated pleural effusion Status: Acute (8) Lung mass Status: Acute (9) Neutropenia Status: Acute (10) Radiation pneumonitis Status: Acute (11) Thrombocytopenia Status: Acute Review of Systems Constitutional: No fever, No chills, No sweats, No weight loss, No weakness Eyes: No worsening of vision, No eye pain, No redness, No discharge ENT: No hearing loss, No unusual epistaxis, No nasal symptoms, No sore throat Respiratory: No cough, No sputum, No wheezing, No shortness of breath Cardiac: No chest pain, No orthopnea, No PND, No edema, No claudication Abdomen: No pain, No nausea, No vomiting, No diarrhea, No constipation Musculoskeletal: No joint pain, No muscle pain Male : No dysuria, No urinary frequency, No incontinence, No slowing stream Psychiatric: No depression symptoms, No anhedonism, No anxiety, No insomnia Skin: No rash, No itch Objective Vital Signs Date Time Temp Pulse Resp B/P (MAP) Pulse Ox O2 Delivery O2 Flow Rate FiO2 12/12/16 11:09 36.5 92 20 116/76 (89) 93 12/12/16 08:00 Room Air 2.0 Nasal Cannula 12/12/16 07:04 36.3 89 20 129/78 (95) 92 Room Air 12/12/16 03:39 36.9 91 20 106/63 (77) 98 Nasal Cannula 2.0 12/12/16 00:00 Nasal Cannula 2.0 12/11/16 23:35 36.3 92 20 124/77 (93) 96 2.0 12/11/16 19:19 36.6 95 20 97/64 (75) 95 2.0 12/11/16 16:00 Nasal Cannula 2.0 12/11/16 15:36 36.4 84 18 106/67 (80) 98 2.0 Physical Exam General Appearance: WD/WN, no apparent distress Eyes: normal inspection, PERRL, EOMI, sclerae normal Neck: supple, no adenopathy, thyroid normal, no JVD Respiratory/Chest: chest non-tender, lungs clear, normal breath sounds, no respiratory distress Cardiovascular: regular rate, rhythm, no edema, no gallop, no JVD Abdomen: normal bowel sounds, non tender, soft, no organomegaly Neurologic/Psychiatric: no motor/sensory deficits, alert, normal mood/affect, oriented x 3 Assessment and Plan 71 year old male with PMH of metastatic lung cancer presented to the ED with worsening left sided chest wall pain and was found to have worsening chest wall invasion of lung cancer on CT of the chest. Metastatic Lung Cancer (small cell carcinoma) - CT abdomen/pelvis and CT chest show worsening extension of lung cancer. - Oncology consulted, chemo on hold, reviewed CT chest - consulted radiation oncology - Increased dilaudid to 2 mg IV q 3 hrs PRN pain in addition to fentanyl patch 100 mcg to apply q 72 hrs - Control nausea with zofran and phenergan - Awaiting radiation tx to commence COPD stable, no exacerbation - continue albuterol and spiriva Constipation - senna and milk of mag HLD - lipitor Diet - Regular DVT prophylaxis - lovenox Code - FULL
[2016-12-12 16:05] VITALS: BP 137/80; PULSE 107; TEMP 36.5; O2SAT 93
[2016-12-12 20:16] VITALS: BP 126/76; PULSE 104; TEMP 36.4; O2SAT 91
[2016-12-12] MEDS: ATORVASTATIN 20 MG TAB PO SCH (22:07)
[2016-12-12] MEDS: ENOXAPARIN 40 MG/0.4 ML SYR SQ SCH (22:08)
[2016-12-12 23:55] VITALS: BP 126/71; PULSE 99; TEMP 36.5; O2SAT 96
[2016-12-13] MEDS: CHECK FENTANYL PATCH PLACEMENT SCH ×4 (00:23→23:47)
[2016-12-13] MEDS: HYDROmorphone INJ 2 MG/ML SYR/VIAL IV PRN ×2 (02:34→08:46)
[2016-12-13 03:56] VITALS: BP 127/71; PULSE 88; TEMP 36.6; O2SAT 98
[2016-12-13 05:44] LABS: HEMATOCRIT 38.5 % (42-52); MEAN CELL VOLUME 91.2 fL (80-100); MEAN CORPUSCULAR HEMOGLOBIN 28.9 pg (25-34); MEAN CORPUSCULAR HGB CONC 31.7 g/dl (32-36); PLATELET COUNT 238 K/uL (130-400); RED BLOOD COUNT 4.22 M/uL (4.7-6.1); WHITE BLOOD COUNT 17.62 K/uL (4.8-10.8)
[2016-12-13 06:21] LABS: CREATININE 1.1 mg/dl (0.60-1.40)
[2016-12-13] MEDS: TIOTROPIUM BROMIDE 5 PUFF/90 MCG INH INH SCH (07:29)
[2016-12-13] MEDS: DEXAMETHASONE 4 MG TAB PO SCH ×2 (07:29→20:48)
[2016-12-13] MEDS: SENNA 8.6 MG TAB PO SCH (07:29)
[2016-12-13] MEDS: VITAMIN B COMPLEX TAB PO SCH (07:29)
[2016-12-13] MEDS: POLYETHYLENE (MIRALAX) 17 GM PACK PO PRN (07:34)
[2016-12-13 07:37] VITALS: BP 156/89; PULSE 89; TEMP 36.4; O2SAT 99
[2016-12-13] MEDS ORDERED: OXYCODONE HCL IR 30 MG TAB (IMMEDIATE RELEASE) PO PRN (10:15)
[2016-12-13] MEDS ORDERED: MILK AND MOLASSES ENEMA PR ONE (10:30)
[2016-12-13] MEDS ORDERED: BISACODYL 5 MG TABEC PO ONE (10:30)
[2016-12-13 11:50] VITALS: BP 141/81; PULSE 99; TEMP 36.6; O2SAT 94
[2016-12-13 14:07] VITALS: TEMP 36.4
[2016-12-13] MEDS ORDERED: LIDODERM (LIDOCAINE) PATCH 5% TD ONE (14:45)
--- NOTE | 2016-12-13 14:51 | Progress Note ---
Subjective Date of Service: Dec 13, 2016. Subjective Pt evaluation today including: conversation w/ patient, physical exam, chart review, lab review, review of studies, conversation w/ fashion consultant sales, review of inpatient medication list Pt resting comfortably in bed Emotional about hearing he may have 6 months to live States pain about the same, 10/ before he gets IV dilaudid Also states still no BM Problem List Medical Problems: (1) Back pain Status: Acute (2) Brain tumor Status: Acute (3) Chest pain Status: Acute (4) COPD exacerbation Status: Acute (5) Diplopia Status: Acute (6) Intractable abdominal pain Status: Acute (7) Loculated pleural effusion Status: Acute (8) Lung mass Status: Acute (9) Neutropenia Status: Acute (10) Radiation pneumonitis Status: Acute (11) Thrombocytopenia Status: Acute Review of Systems Constitutional: No fever, No chills, No sweats, No weight loss, No weakness, No fatigue Eyes: No worsening of vision, No eye pain, No redness, No discharge ENT: No hearing loss, No unusual epistaxis, No nasal symptoms, No sore throat Respiratory: No cough, No sputum, No wheezing, No shortness of breath Cardiac: No chest pain, No orthopnea, No PND Abdomen: No pain, No nausea, No vomiting, No diarrhea, No constipation Musculoskeletal: + joint pain, + muscle pain, No swelling, No calf pain Male : No dysuria, No urinary frequency, No incontinence, No slowing stream Neurologic: No memory loss, No paralysis, No weakness, No numbness/tingling Psychiatric: No depression symptoms, No anhedonism, No anxiety, No insomnia Heme: No abnormal bleeding/bruising, No clotting problems Endo: No fatigue, No excessive thirst Skin: No rash, No itch Objective Vital Signs Date Time Temp Pulse Resp B/P (MAP) Pulse Ox O2 Delivery O2 Flow Rate FiO2 12/13/16 14:07 36.4 12/13/16 11:50 36.6 99 18 141/81 (101) 94 Room Air 12/13/16 08:00 Room Air 2.0 Nasal Cannula 12/13/16 07:37 36.4 89 16 156/89 (111) 99 Room Air 12/13/16 03:56 36.6 88 20 127/71 (89) 98 Room Air 12/13/16 00:00 Room Air 12/12/16 23:55 36.5 99 16 126/71 (89) 96 Room Air 12/12/16 20:16 36.4 104 19 126/76 (93) 91 Room Air 12/12/16 16:05 36.5 107 18 137/80 (99) 93 Room Air 12/12/16 16:00 Nasal Cannula 2.0 Physical Exam General Appearance: WD/WN, + mild distress Eyes: normal inspection, PERRL, EOMI, sclerae normal Neck: supple, no adenopathy, thyroid normal, no JVD Respiratory/Chest: chest non-tender, lungs clear, normal breath sounds, no respiratory distress Cardiovascular: regular rate, rhythm, no edema, no gallop, no JVD, no murmur Abdomen: normal bowel sounds, non tender, soft, no organomegaly Extremities: normal range of motion, normal inspection, no pedal edema, no calf tenderness Neurologic/Psychiatric: no motor/sensory deficits, alert, normal mood/affect, oriented x 3 Skin: normal color, warm/dry, no rash Lymphatic: no adenopathy Laboratory Results Last 24 Hours Test 12/13/16 05:23 White Blood Count 17.62 K/uL Red Blood Count 4.22 M/uL Hemoglobin 12.2 g/dL Hematocrit 38.5 % Mean Corpuscular Volume 91.2 fL Mean Corpuscular Hemoglobin 28.9 pg Mean Corpuscular Hemoglobin Concent 31.7 g/dl RDW Standard Deviation 55.2 fL RDW Coefficient of Variation 16.7 % Platelet Count 238 K/uL Mean Platelet Volume 9.0 fL Creatinine 1.10 mg/dl Est Creatinine Clear Calc Drug Dose 61.4 ml/min Estimated GFR () 77.9 Estimated GFR (Non- 67.2 Assessment and Plan 71 year old male with PMH of metastatic lung cancer presented to the ED with worsening left sided chest wall pain and was found to have worsening chest wall invasion of lung cancer on CT of the chest. Metastatic Lung Cancer (small cell carcinoma) - CT abdomen/pelvis and CT chest show worsening extension of lung cancer. - Oncology consulted, chemo on hold, reviewed CT chest - consulted radiation oncology - Due to worsening pain, converted dilaudid 2 mg IV q 3 hrs to dilaudid 8 mg PO q 4 hrs in addition to fentanyl patch 100 mcg to apply q 72 hrs - Control nausea with zofran and phenergan - Awaiting radiation tx to commence COPD stable, no exacerbation - continue albuterol and spiriva Constipation - senna and milk of mag - added milk and molasses enema x 1 and dulcolax 5 mg tablet scdueled daily HLD - lipitor Diet - regular DVT prophylaxis - lovenox Code - FULL
[2016-12-13] MEDS ORDERED: FENTANYL PATCH REMOVE & WASTE SCH (14:59)
[2016-12-13] MEDS ORDERED: FENTANYL 100 MCG/HR TDSY TD SCH (15:00)
[2016-12-13 15:06] VITALS: BP 136/74; PULSE 104; TEMP 36.4; O2SAT 93
[2016-12-13 20:07] VITALS: BP 128/75; PULSE 91; TEMP 36.3; O2SAT 97
[2016-12-13] MEDS: ENOXAPARIN 40 MG/0.4 ML SYR SQ SCH (20:47)
[2016-12-13] MEDS: ATORVASTATIN 20 MG TAB PO SCH (20:48)
[2016-12-14 00:22] VITALS: BP 124/74; PULSE 85; TEMP 36.5; O2SAT 91
[2016-12-14 04:25] VITALS: BP 101/58; PULSE 85; TEMP 36.5; O2SAT 95
[2016-12-14 06:12] VITALS: Ht 167.6 cm; Wt 81.0 kg
[2016-12-14 07:17] VITALS: BP 108/65; PULSE 84; TEMP 36.6; O2SAT 99
[2016-12-14] MEDS ORDERED: BISACODYL 5 MG TABEC PO SCH (08:00)
[2016-12-14] MEDS ORDERED: LIDODERM (LIDOCAINE) PATCH 5% TD SCH (08:00)
[2016-12-14] MEDS: SENNA 8.6 MG TAB PO SCH (08:19)
[2016-12-14] MEDS: VITAMIN B COMPLEX TAB PO SCH (08:19)
[2016-12-14] MEDS: DEXAMETHASONE 4 MG TAB PO SCH (08:20)
[2016-12-14] MEDS: CHECK FENTANYL PATCH PLACEMENT SCH (08:21)
[2016-12-14] MEDS: TIOTROPIUM BROMIDE 5 PUFF/90 MCG INH INH SCH (08:22)
[2016-12-14] MEDS ORDERED: FENTANYL PATCH REMOVE & WASTE SCH (09:00)
[2016-12-14 10:04] LABS: HEMATOCRIT 37.8 % (42-52); MEAN CELL VOLUME 90.9 fL (80-100); MEAN CORPUSCULAR HEMOGLOBIN 28.8 pg (25-34); MEAN CORPUSCULAR HGB CONC 31.7 g/dl (32-36); MEAN PLATELET VOLUME 8.9 fL (7.4-10.4); PLATELET COUNT 281 K/uL (130-400); RED BLOOD COUNT 4.16 M/uL (4.7-6.1); WHITE BLOOD COUNT 21.19 K/uL (4.8-10.8)
[2016-12-14 10:26] LABS: BASO ABS # 0.01 K/uL (0-0.2); COMPLETE YES; IG% 1.4 %; LYMPH % 6.4 %; LYMPH ABS # 1.36 K/uL (1.2-3.4); NEUT % 88.2 %
[2016-12-14 11:57] VITALS: BP 167/85; PULSE 89; TEMP 36.7; O2SAT 97
[2016-12-14] MEDS ORDERED: MRLP17X PO (13:40)
[2016-12-14] MEDS ORDERED: LDDP5 TD (13:40)
[2016-12-14] MEDS ORDERED: SNK PO (13:40)
[2016-12-14] MEDS ORDERED: [UNRECOGNIZED DRUG - CODE] PO (13:40)
[2016-12-14] MEDS ORDERED: DRGTP100 TD (13:40)
[2016-12-14] MEDS ORDERED: DLC5 PO (13:40)
--- NOTE | 2016-12-14 13:44 | Discharge Instructions ---
Discharge Instructions Date of Service Dec 14, 2016. Admission Reason for Admission: Intractable Abdominal Pain, Lung Cancer Discharge Discharge Diagnosis / Problem: Lung cancer Discharge Goals Goal(s): Decrease discomfort, Improve function, Increase independence, Improve disease control, Learn about illness, Diagnostic testing, Therapeutic intervention, Prevent Disease Progression Activity Recommendations Activity Limitations: resume your previous activity Exercise/Sports Limitations: none Shower/Bathe: no limitations . Instructions / Follow-Up Instructions / Follow-Up Patient to be discharged home Please not changes in medications: For constipation, please take dulcolax 5 mg tablet once a day, senna 8.6 mg tablet daily and miralax 17 gm tablet once daily For pain please take lidoderm patch apply daily, fentanyl 100 mcg patch to apply every 3 days, and hydromorpone 8 mg tablet can take every 4 hrs only NEEDED for pain Please follow up with Dr Octavio Badillo and Dr Powers in 1 week for further evaluation and treatment If worsening pain, shortness of breath, or chest pain please report to ER Current Hospital Diet Patient's current hospital diet: Regular Diet Discharge Diet Recommended Diet: Regular Diet Pending Studies Studies pending at discharge: no Medical Emergencies . Who to Call and When: Medical Emergencies: If at any time you feel your situation is an emergency, please call 911 immediately. . Non-Emergent Contact Non-Emergency issues call your: Primary Care Provider Call Non-Emergent contact if: you have a fever, your pain is worsening . . "Provider Documentation" section prepared by Juan Antonio Kolb. . VTE Core Measure Inpt VTE Proph given/why not?: Enoxaparin (Lovenox)SQ
--- NOTE | 2016-12-14 14:00 | Discharge Summary ---
Discharge Summary Date of Service Dec 14, 2016. Discharge Summary Admission Date: Dec 10, 2016 at 18:39 Discharge Date: Dec 14, 2016 Discharge Disposition: Home Principal Diagnosis: Lung cancer Immunizations: Have You Had Influenza Vaccine: Yes Influenza Vaccine Date: Feb 15, 2014 History of Tetanus Vaccine?: Unknown History of Pneumococcal: Unknown Pneumococcal Date: Jun 05, 2011 History of Hepatitis B Vaccine: Unknown Hepatitis Immunization Date: Aug 06, 2008 Consultations: Hematology/oncology Medication Reconciliation New Medications: Bisacodyl (Bisacodyl EC) 5 Mg Tabec 5 MG PO DAILY, #30 TABS Fentanyl (Fentanyl) 100 Mcg Tdsy 100 MCG TD Q72H, #10 PATCH Hydromorphone HCl (Hydromorphone HCl) 8 Mg Tab 8 MG PO Q4 PRN for Pain, #60 TAB Lidocaine (Lidocaine) 1 Patch Tdsy 1 PATCH TD QAM, #30 PATCH Polyethylene (Miralax) 17 Gm Pow 17 GM PO DAILY PRN for Constipation for 30 Days, #30 TABS Senna (Senna Lax) 8.6 Mg Tab 8.6 MG PO QAM for 30 Days, #30 TAB Continued Medications: Albuterol Sulf (Proventil 0.083% 2.5MG/3ML) 2.5 Mg/3 Ml Nebu 2.5 MG INH QID PRN for SOB/Wheezing, EA Atorvastatin (Lipitor) 20 Mg Tab 20 MG PO HS, 1 Refill B-Complex Vitamins (Vitamin B Complex) 1 Tab Tab 1 TAB PO DAILY Dexamethasone (Decadron) 4 Mg Tab 20 MG PO UD TAKE 5 TABLETS (20MG) BY MOUTH 2X PER DAY. TAKE 12 HOURS AND THEN 6 HOURS PRIOR TO CHEMO. Hydrocodone/Acetaminophen 10MG/325MG ([place] 10MG/325MG) Tab 1 TAB PO Q4H PRN for Pain, TAB PRN PAIN Ondansetron Hcl (Zofran) 8 Mg Tab 8 MG PO Q8H PRN for Nausea, TAB Sertraline (Zoloft) 100 Mg Tab 100 MG PO DAILY, TAB Tiotropium [place] (Spiriva Respimat) 2.5 Mcg/Act Spr 2 PUFFS PO DAILY Discharge Exam Review of Systems: Constitutional: No fever, No chills, No sweats, No weakness, No fatigue Eyes: No worsening of vision, No eye pain, No redness, No discharge Respiratory: No cough, No sputum, No wheezing, No shortness of breath, No dyspnea on exertion Cardiovascular: No chest pain, No orthopnea, No PND, No edema, No claudication Abdomen: No pain, No nausea, No vomiting, No diarrhea, No constipation Musculoskeletal: + joint pain, + muscle pain, No swelling, No calf pain Genitourinary - Male: No hematuria, No dysuria, No urinary frequency, No urinary urgency Neurologic: No memory loss, No paralysis, No weakness, No numbness/tingling Psychiatric: No depression symptoms, No anhedonism, No anxiety, No insomnia Hematologic / Lymphatic: No abnormal bleeding/bruising, No clotting problems Integumentary: No rash, No itch Physical Exam: General Appearance: WD/WN, no apparent distress Eyes: normal inspection, PERRL, EOMI, sclerae normal ENT: normal ENT inspection, hearing grossly normal, TMs normal, pharynx normal Neck: supple, no adenopathy, thyroid normal, no JVD Respiratory/Chest: chest non-tender, lungs clear, normal breath sounds, no respiratory distress Cardiovascular: regular rate, rhythm, no edema, no gallop, no JVD Abdomen / GI: normal bowel sounds, non tender, soft, no organomegaly Extremities: normal inspection, no calf tenderness, normal capillary refill , no pedal edema Neurologic/Psychiatric: no motor/sensory deficits, alert, normal mood/affect , normal reflexes Skin: normal color, warm/dry, no rash Lymphatic: no adenopathy Hospital Course 71 year old male with PMH of metastatic lung cancer presented to the ED with worsening left sided chest wall pain and was found to have worsening chest wall invasion of lung cancer on CT of the chest. Metastatic Lung Cancer (small cell carcinoma) - CT abdomen/pelvis and CT chest show worsening extension of lung cancer. - Oncology consulted, chemo on hold, reviewed CT chest - consulted radiation oncology - Due to worsening pain, converted dilaudid 2 mg IV q 3 hrs to dilaudid 8 mg PO q 4 hrs in addition to fentanyl patch 100 mcg to apply q 72 hrs and lidoderm patch 5%, pain controlled - Control nausea with zofran and phenergan - First radiation tx completed 12/14, stable for discharge home with f/u with rad onc and oncology COPD stable, no exacerbation - continue albuterol and spiriva Constipation resolved - senna and milk of mag - added milk and molasses enema x 1 and dulcolax 5 mg tablet scheduled daily HLD - lipitor Diet - regular DVT prophylaxis - lovenox Code - FULL Total Time Spent: Greater than 30 minutes This includes examination of the patient, discharge planning, medication reconciliation, and communication with other providers. Discharge Instructions Please refer to the electronic Patient Visit Report (Discharge Instructions) for additional information. Additional Copies To Nirmala Delacruz
[2016-12-14 14:40] VITALS: BP 167/85; PULSE 89; TEMP 36.7; O2SAT 97
[2016-12-21] MEDS ORDERED: POLY335019 PO (11:25)
[2017-01-11] MEDS ORDERED: SNK PO (11:04)
[2017-01-11] MEDS ORDERED: AMOX875T PO (11:04)
[2017-01-11] MEDS ORDERED: DLC5 PO (11:04)
[2017-01-11] MEDS ORDERED: DEXA2TAB PO (11:04)
[2017-01-11] MEDS ORDERED: POLY335019 PO (11:04)
[2017-01-11] MEDS ORDERED: GFNSR600 PO (11:04)
[2017-01-11] MEDS ORDERED: [UNRECOGNIZED DRUG - CODE] PO (11:04)
[2017-01-11] MEDS ORDERED: OXGN (11:11)
[2017-01-11] MEDS ORDERED: FLUC100T4 PO (11:30)
--- NOTE | 2017-01-16 09:24 | Radiation Onc End of Treatmnt ---
End of Treatment Documentation Date Jan 16, 2017. Diagnosis (1) Lung cancer Location: Left posterior chest wall Histology Subtype: small cell Onset Date: 01/20/2015 Stage: IV Permanent Comment: STAGING: Lung, JESSICA, small cell carcinoma, [id number], stage IV, extensive stage (initially limited) with solitary brain metastasis TREATMENT: combined chemoradiatio - 7000 cGy in 35 fractions - 04/19/2015 ( concurrent cisplatin/etoposide) Initiation of combined radiation and chemotherapy Respiratory failure requiring intubation with slow steady recovery Reinitiation of combined treatment Status post completion of combined radiation and chemotherapy Radiation completed 04/19/2015 Status post completion of prophylactic cranial irradiation 06/27/2015. Status post 4 cycles of carboplatin/etoposide for recurrent/progressive disease in brain/left hemithorax Chemotherapy completed May 2016 Progression of metastatic disease on brain MRI 09/10/2016 Status post Brain SBRT - 2400 cGy in 3 fractions - 10/04/2016 Progression of metastatic disease in left posterior chest wall and liver - PET/ CT - 11/07/2016 Treated with single agent Taxol with Dr. Powers - stopped 11/2016 due to progression of disease Chemotherapy with Nivolumab Admission for intractable pain of the left posterior chest Status post completion of radiation therapy for palliation 01/04/2017 received 3750 cGy Last Edited By: Kylie Sun on Jan 16, 2017 09:21 History We are seeing Mr. wei in consultation at the request of Dr. Onofre Powers The patient was seen at bedside with his . ECOG PS : 2 - 3 Mr. Wei is a 71-year-old gentleman with a history of metastatic and progressive small small cell lung carcinoma of the lung with a history as indicated above. More recently, the patient was diagnosed with progression of disease involving the liver as well as locally in the posterior left chest wall determined by a PET/CT scan on 11/07/2016. The patient was started on single agent Taxol underneath the supervision of Dr. Onofre Powers. The patient did have restaging scans which include a CT of the chest/abdomen/pelvis on 2016 which did show progression of disease. The patient was suffering from intractable pain and was admitted to the hospital for pain management and control. Dr. Powers has evaluated the patient and recommended consideration of palliative radiation therapy. We are now seeing the patient in consultation. Currently, the patient is having significant pain and discomfort in his left posterior chest wall. Physics Course Treatment Site [employer] Start Date End Date Elapsed Days # TX Daily Dose (cGy) Total Dose (cGy) C4-Chest Rapid Arc 6x 12/14/16 01/04/17 21 15 250 3750 Total Dose: (cGy) 3750 Course Total Fractions 15 Course Total Elapsed Days 21 Do documented final doses agree with prescribed doses? Yes If not, explain: Is patients chart complete and accurate? Yes Additional Notes He completed his palliative course of radiation therapy. He tolerated this well. He did not require any breaks in treatment. He did not develop any skin irritation. He felt that he felt he had a good clinical response. With decreased pain. He'll be returning to medical oncology. We asked him to return to our office in one month. He may call if she has any questions or concerns in the interim. Pain Management His pain level at the beginning of treatment was 4. The pain level at and her treatment was 0. He has oxycodone and Dilaudid available for treatment of pain. He'll continue these medications if needed following radiation therapy. Copies To Onofre Powers D.O.; Nirmala Delacruz Problem Qualifiers (1) Lung cancer: Laterality: left Lung location: upper lobe of lung Qualified Codes: C34.12 - Malignant neoplasm of upper lobe, left bronchus or lung
== END 2016-12-14 16:56 | disposition home or self-care (01) | DRG 844 ==
LOC: C.EDB 14:17 → C.4E 18:39 → ENRESERV 18:55
PROVIDERS: ADMIT Family Medicine; ATTEND Hospitalist
DX: C79.89 Secondary malignant neoplasm of other specified sites (principal); C34.12 Malignant neoplasm of upper lobe, left bronchus or lung; C79.31 Secondary malignant neoplasm of brain; I50.9 Heart failure, unspecified; I11.0 Hypertensive heart disease with heart failure; E78.5 Hyperlipidemia, unspecified; E78.00 Pure hypercholesterolemia, unspecified; K59.00 Constipation, unspecified; J44.9 Chronic obstructive pulmonary disease, unspecified; H91.90 Unspecified hearing loss, unspecified ear; Z79.899 Other long term (current) drug therapy; Z87.891 Personal history of nicotine dependence; Z87.442 Personal history of urinary calculi; Z82.49 Family history of ischemic heart disease and other diseases of the circulatory system; Z82.0 Family history of epilepsy and other diseases of the nervous system

== ENCOUNTER → 2016-12-10 | Outpatient (CLI) | payer BC ==
[~2016-12-10] MED LIST changes: -OPTIRAY 300 IV PRN; +OPTIRAY 320 IV PRN
--- NOTE | 2016-12-10 12:28 | DIAGNOSTIC IMAGING REPORT ---
CHEST CT WITH CONTRAST CT DOSE: 738.75 mGy.cm HISTORY: Neoplasm. Lung carcinoma. X TECHNIQUE: Multiaxial CT images of the chest were performed following the intravenous administration of contrast. COMPARISON: 10/16/2016 FINDINGS: Upper lobe fibrotic changes of the left with locally invasive changes to the left lateral superior mediastinal region appears similar. There is mild localized extension to the left aortopulmonary window region which appears to be similar. Fibrotic and/or bronchiectatic changes left upper lobe are similar. Slightly progressive reactive pleural thickening left anterior hemithorax. Unchanging localized left upper lung pneumothorax is similar. Left perihilar infiltrative and/or fibrotic changes in general are similar. Pleural thickening left base is slightly increased in overall geographic extent. There is suggestion of a left posterior chest wall involvement currently with soft tissue prominence of left paravertebral line best seen on transaxial image 51 and 59. Slightly progressive retrocrural and para esophageal pedro change. Left retrocrural pedro pathology has increased to 2.2 cm compared to the prior examination of 1.5 cm. Right-sided pedro pathology has increased to 1.6 cm compared to the prior study 1.0 cm. Macro nodularity of the right hemithorax is generally similar. IMPRESSION: 1. Local progression of the patient's neoplastic disease at the left lung base and to a lesser extent left upper lung region. 2. Moderately progressive retrocrural adenopathy of the lower chest region. 3. Micronodularity of the right hemithorax is stable. 4. Nodular pathology left base now shows evidence for developing chest wall invasion Electronically signed by: Marshall Granado M.D. 12/10/2016 12:27 PM Dictated Date/Time: 12/10/2016 12:17 PM
--- NOTE | 2016-12-10 12:40 | DIAGNOSTIC IMAGING REPORT ---
CT OF THE ABDOMEN AND PELVIS WITH CONTRAST CLINICAL HISTORY: Small cell lung cancer. COMPARISON STUDY: CT of the abdomen and pelvis August 02, 2016, PET/CT November 07, 2016 and IVP December 05, 2016. TECHNIQUE: Following IV administration of 92 mL of Optiray-320, axial images of the abdomen and pelvis were obtained from the lung bases to the proximal femurs. Images were reviewed in the axial, sagittal, and coronal planes. IV contrast was administered without complication. FINDINGS: The chest will be reported separately. However, a small left pleural effusion is again noted. Multiple left paravertebral and para-aortic nodules have developed since CT of August 02, 2016 and slightly increased in size since PET/CT of November 07, 2016. Index left para-aortic nodule shown image 70 measures 2.2 cm. It previously measured 2.1 cm. An index right para-aortic nodule measures 1.6 cm. It previously measured 1 cm. A few retrocrural lymph nodes have slightly increased in size. A 3 x 2.9 cm right hepatic dome metastasis is new since CT of August 02, 2016 and likely slightly increased in size since recent PET. The spleen, adrenal glands and pancreas are unremarkable with exception of several pancreatic parenchymal calcifications. Multifocal right renal scarring is noted. There is no evidence for a bowel obstruction. There are no suspicious osseous lesions. There is extensive atherosclerotic plaque of the abdominal aorta. IMPRESSION: Significant progression of metastatic disease since CT of August 02, 2016 and slight progression of metastatic disease since PET/CT of November 07, 2016. Slight increase in size of para-aortic/left paravertebral nodules and slight interval increase in size of a right hepatic dome metastasis. Electronically signed by: Kennedy Packer M.D. 12/10/2016 12:39 PM Dictated Date/Time: 12/10/2016 12:28 PM
== END | disposition home or self-care (01) ==
LOC: C.CTS 09:40
PROVIDERS: ATTEND Nurse Practitioner Family
DX: C34.12 Malignant neoplasm of upper lobe, left bronchus or lung (principal)

== ENCOUNTER → 2017-01-01 | Outpatient (CLI) | payer BC ==
[~2017-01-01] MED LIST changes: +AMOX875T PO; -ATV/1 PO; +DEXA2TAB PO; +DLC5 PO; +DRGTP100 TD; +DXM/4 PO; +FLUC100T4 PO; +GFNSR600 PO; +LDDP5 TD; +OXGN; +POLY335019 PO; -PROC1TAB5 PO; -SENNTAB23 PO; +SNK PO; +[UNRECOGNIZED DRUG - CODE] PO
--- NOTE | 2017-01-01 18:19 | DIAGNOSTIC IMAGING REPORT ---
MRI OF THE BRAIN WITHOUT AND WITH IV CONTRAST CLINICAL HISTORY: Lung carcinoma. Right arm weakness. Tremors. COMPARISON STUDY: 11/22/2016 TECHNIQUE: MRI of the brain was performed from the vertex to the skull base utilizing various T1 and T2 weighted sequences. Following the IV administration of mL of Gadavist contrast, additional enhanced images were obtained. FINDINGS: Sagittal T1, axial diffusion, proton density and T2 weighted axial, coronal FLAIR, and pre and post axial T1-weighted images were acquired. These were supplemented with post gadolinium coronal T1 weighted images. There is an enlarging 16 mm ring-enhancing right occipital mass with surrounding vasogenic edema. This is bright on T1-weighted images indicating a hemorrhagic component. There is an enlarging enhancing 11 mm left parietal mass with surrounding vasogenic edema. Axial diffusion-weighted images reveal no evidence of acute or subacute infarction. Both intracranial lesions demonstrate increased signal on axial diffusion-weighted imaging. There is no evidence of ventricular dilatation. Proton density T2-weighted and FLAIR images reveal scattered foci of increased T2 signal within the white matter, likely on a small vessel basis. There is also vasogenic edema subjacent to the bilateral hemispheric masses There are no abnormal flow voids. There are foci of increased T2 signal within the right mastoid likely inflammatory. IMPRESSION: 1. Progressive metastatic disease with interval enlargement of a 16 mm right occipital lobe mass, and 11 mm left parietal lobe mass. 2. No evidence of acute infarction Electronically signed by: Javier Marcelo M.D. 01/01/2017 6:18 PM Dictated Date/Time: 01/01/2017 6:10 PM
== END | disposition home or self-care (01) ==
LOC: C.MRI 16:39
PROVIDERS: ATTEND Physician Assistant Medical
DX: R53.1 Weakness (principal); C79.31 Secondary malignant neoplasm of brain; C34.12 Malignant neoplasm of upper lobe, left bronchus or lung

== ENCOUNTER 2017-01-08 12:13 | Inpatient (IN) | payer BC, OTHER ==
[~2017-01-08] VITALS: Ht 177.8 cm; Wt 80.4 kg
[~2017-01-08 12:13] MED LIST changes: -AMOX875T PO; -DEXA2TAB PO; -FLUC100T4 PO; -GFNSR600 PO; -OXGN
[2017-01-08] MEDS ORDERED: HYDROmorphone INJ 1 MG/ML SYR IV STA ×3 (12:30→13:14)
--- NOTE | 2017-01-08 12:35 | EMERGENCY ROOM VISIT NOTE ---
History Report prepared by Yamil: Ellyn Tucker Under the Supervision of: Dr. Timbo Olson M.D. First contact with patient: 12:14 Chief Complaint: CHEST PAIN Stated Complaint: right chest pain History of Present Illness The patient is a 71 year old male who presents to the Emergency Room with complaints of worsening chest pain starting early this morning. The patient states that he has a history of lung cancer. He reports that he tried to use his Lidocaine patches, but only got little relief. The patient starts that he thinks that this pain is similar to his previous pain from his cancer, but feels worse. He reports that he is short of breath. He denies any abdominal pain. He notes that he has inhalers at home that he tried using. He currently rates his pain as a 10/10 in severity. Source of History: patient Onset: early this morning Position: chest Symptom Intensity: 10/10 Quality: other (similar to previous pain) Timing: worsening Associated Symptoms: + SOB, No abdominal pain Review of Systems See HPI for pertinent positives & negatives. A total of 10 systems reviewed and were otherwise negative. Past Medical & Surgical Medical Problems: (1) Benign hypertension (2) Congestive Heart Failure Nos (3) Hyperlipidemia (4) Hyperlipidemia Nec/Nos (5) Hypertension Nos (6) Hypoxia (7) Kidney stone (8) Lung cancer (9) Syncope and collapse Family History Congestive heart failure FHx: neurologic disorder Heart disease Social History Smoking Status: Former Smoker Alcohol Use: none Marital Status: Housing Status: lives with family Occupation Status: retired Current/Historical Medications Scheduled Atorvastatin (Lipitor), 20 MG PO HS B-Complex Vitamins (Vitamin B Complex), 1 TAB PO DAILY Bisacodyl (Bisacodyl EC), 5 MG PO DAILY Dexamethasone (Decadron), 4 MG PO AMPM Fentanyl (Fentanyl), 100 MCG TD Q72H Lidocaine (Lidocaine), 1 PATCH TD QAM Polyethylene Glycol 3350 (Miralax), 17 GM PO DAILY Senna (Senna Lax), 8.6 MG PO QAM Sertraline (Zoloft), 100 MG PO DAILY Tiotropium [place] (Spiriva Respimat), 2 PUFFS PO DAILY Scheduled PRN Albuterol Sulf (Proventil 0.083% 2.5MG/3ML), 2.5 MG INH QID PRN for SOB/Wheezing Hydrocodone/Acetaminophen 10MG/325MG ([place] 10MG/325MG), 1 TAB PO Q4H PRN for Pain Hydromorphone HCl (Hydromorphone HCl), 8 MG PO Q4 PRN for Pain Ondansetron Hcl (Zofran), 8 MG PO Q8H PRN for Nausea Allergies Coded Allergies: No Known Allergies (Unverified , 11/22/16) Physical Exam Vital Signs Date Time Temp Pulse Resp B/P (MAP) Pulse Ox O2 Delivery O2 Flow Rate FiO2 01/08/17 16:33 114 12 115/68 90 Nasal Cannula 4.0 01/08/17 15:04 93 12 121/80 95 Nebulizer 10.0 01/08/17 14:35 92 18 91 Nasal Cannula 3.0 01/08/17 14:29 86 16 112/69 91 Nasal Cannula 3.0 01/08/17 13:01 95 16 116/75 94 Nasal Cannula 2.0 01/08/17 12:32 95 Nasal Cannula 2.0 01/08/17 12:28 36.7 91 18 117/71 90 Room Air 2.0 01/08/17 12:26 90 Room Air 01/08/17 12:22 95 Physical Exam GENERAL: Patient is a healthy-appearing well-nourished HEAD: Normocephalic atraumatic EYES: Ocular movements intact pupils equal and react to light OROPHARYNX mucous membranes are moist no exudates present no erythema or edema present NECK: Supple no nuchal rigidity CHEST: Good equal expansion LUNGS: Clear and equal to auscultation CARDIAC: Normal S1 and S2 ABDOMEN: Soft nontender no guarding BACK: No CVA tenderness EXTREMITIES: No pain upon palpation normal muscle strength in all groups no clubbing cyanosis or edema NEURO: Patient is following commands and answering questions appropriately. Alert and oriented x3 Cranial Nerves 2-12 grossly intact Medical Decision & Procedures ER Provider Diagnostic Interpretation: Radiology results as stated below per my review and radiologist interpretation: CHEST ONE VIEW PORTABLE CLINICAL HISTORY: CHEST PAIN dyspnea COMPARISON STUDY: 11/18/2016 FINDINGS: Interval development parenchymal infiltrate right base. Unchanging mediastinal and hilar fullness. Peripheral left lung is clear. IMPRESSION: Interval development of superimposed parenchymal infiltrate right base. The above report was generated using voice recognition software. It may contain grammatical, syntax or spelling errors. Electronically signed by: Marshall Granado M.D. 01/08/2017 12:42 PM Dictated Date/Time: 01/08/2017 12:[address] ANGIOGRAPHY OF THE CHEST, PULMONARY EMBOLUS PROTOCOL CLINICAL HISTORY: Right-sided chest pain. Lung cancer. COMPARISON STUDY: Chest CT December 10, 2016 and chest radiograph January 08, 2017. TECHNIQUE: Following IV administration of 92 mL of Optiray-320, helical axial images of the chest were obtained utilizing the pulmonary embolus protocol. Maximal intensity projections and sagittal and coronal reformats were viewed on an independent 3D workstation. IV contrast was administered without complication. A dose lowering technique was utilized adhering to the principles of ALARA. CT DOSE: 257.35 mGy.cm FINDINGS: Stable left paramediastinal opacity is noted. This is likely post therapeutic. A left upper lobe cavity is unchanged since CT of December 10, 2016. The heart is moderately enlarged. There is no pericardial effusion. There is a trace left pleural effusion. Left pleural enhancing tissue suggestive of tumor has improved since exam of December 10, 2016. Associated pleural/extrapleural nodules have decreased in size since prior exam of December 10, 2016. An index left para-aortic nodule shown image 22 of 108 measures 1.3 cm. It previously measured 2.2 cm. There are no enlarged axillary, hilar or mediastinal lymph nodes. No pulmonary emboli are identified. There is no evidence of thoracic aortic dissection. There has been interval development of extensive right middle lobe consolidation with multifocal mucus plugging. A 1.5 cm right lower lobe nodule shown image 45 is also new. An irregular nodular opacity within the right upper lobe shown on image 62 is new. A 6 mm left lower lobe nodule shown image 60 is also new. Bronchial wall thickening and mucous filling is also noted within the right lower lobe. Moderate emphysema is present. A 3 cm right hepatic dome metastasis is similar in size to CT of December 10, 2016. A 1.8 cm lateral segment hepatic lesion and a 2.3 cm segment 5/6 hepatic lesion shown image 15 are likely new since prior CT of December 10, 2016. IMPRESSION: 1. No pulmonary emboli identified. 2. Interval development of extensive right middle lobe consolidation and a few irregular nodular opacities throughout the lungs. Mucus plugging and bronchial wall thickening. The findings favor extensive pneumonia given rapid development. A neoplastic etiology is considered less likely however imaging follow-up to ensure resolution is recommended. 3. Moderate interval improvement in left lower hemithorax pleural/extrapleural metastatic disease, as described above. 4. Suspected development of several hepatic lesions since prior CT of December 10, 2016. This suggests a mixed treatment response. 5. No change in the left upper hemithorax cavity. Stable left paramediastinal opacity which is likely post therapeutic. Electronically signed by: Kennedy Packer M.D. 01/08/2017 2:38 PM Dictated Date/Time: 01/08/2017 2:21 PM Laboratory Results 01/08/17 12:20 Red Blood Count 4.34, Mean Corpuscular Volume 92.2, Mean Corpuscular Hemoglobin 31.8, Mean Corpuscular Hemoglobin Concent 34.5, Mean Platelet Volume 10.7, Neutrophils (%) (Auto) 94.3, Lymphocytes (%) (Auto) 0.4, Monocytes (%) (Auto) 2.4, Eosinophils (%) (Auto) 0.2, Basophils (%) (Auto) 0.2, Neutrophils # (Auto) 5.21, Lymphocytes # (Auto) 0.02, Monocytes # (Auto) 0.13, Eosinophils # (Auto) 0.01, Basophils # (Auto) 0.01 01/08/17 12:20 Test 01/08/17 12:20 01/08/17 15:43 White Blood Count 5.52 K/uL (4.8-10.8) Red Blood Count 4.34 M/uL (4.7-6.1) Hemoglobin 13.8 g/dL (14.0-18.0) Hematocrit 40.0 % (42-52) Mean Corpuscular Volume 92.2 fL (80-100) Mean Corpuscular Hemoglobin 31.8 pg (25-34) Mean Corpuscular Hemoglobin Concent 34.5 g/dl (32-36) Platelet Count 45 K/uL (130-400) Mean Platelet Volume 10.7 fL (7.4-10.4) Neutrophils (%) (Auto) 94.3 % Lymphocytes (%) (Auto) 0.4 % Monocytes (%) (Auto) 2.4 % Eosinophils (%) (Auto) 0.2 % Basophils (%) (Auto) 0.2 % Neutrophils # (Auto) 5.21 K/uL (1.4-6.5) Lymphocytes # (Auto) 0.02 K/uL (1.2-3.4) Monocytes # (Auto) 0.13 K/uL (0.11-0.59) Eosinophils # (Auto) 0.01 K/uL (0-0.5) Basophils # (Auto) 0.01 K/uL (0-0.2) RDW Standard Deviation 67.4 fL (36.4-46.3) RDW Coefficient of Variation 19.7 % (11.5-14.5) Immature Granulocyte % (Auto) 2.5 % Immature Granulocyte # (Auto) 0.14 K/uL (0.00-0.02) Toxic Granulation 1+ Platelet Estimate DECREASED Anisocytosis PRESENT Prothrombin Time 13.0 SECONDS (9.0-12.0) Prothromb Time International Ratio 1.2 (0.9-1.1) Anion Gap 10.0 mmol/L (3-11) Est Creatinine Clear Calc Drug Dose 43.6 ml/min Estimated GFR () 58.2 Estimated GFR (Non- 50.2 BUN/Creatinine Ratio 31.9 (10-20) Calcium Level 9.4 mg/dl (8.5-10.1) Total Bilirubin 0.4 mg/dl (0.2-1) Direct Bilirubin 0.2 mg/dl (0-0.2) Aspartate Amino Transf (AST/SGOT) 53 U/L (15-37) Alanine Aminotransferase (ALT/SGPT) 131 U/L (12-78) Alkaline Phosphatase 141 U/L (45-117) Total Creatine Kinase 92 U/L (39-308) Creatine Kinase MB 1.6 ng/ml (0.5-3.6) Creatine Kinase MB Ratio 1.7 (0-3.0) Troponin I < 0.015 ng/ml (0-0.045) Total Protein 7.0 gm/dl (6.4-8.2) Albumin 2.3 gm/dl (3.4-5.0) Lipase 47 U/L (73-393) Labs reviewed by ED physician. Medications Administered Medications (Trade) Dose Ordered Sig/Allison Route Start Time Stop Time Status Last Admin Dose Admin Hydromorphone HCl (Dilaudid Inj) 1 mg NOW STAT IV 01/08/17 12:30 01/08/17 12:31 DC 01/08/17 12:41 1 MG Hydromorphone HCl (Dilaudid Inj) 1 mg NOW STAT IV 01/08/17 12:54 01/08/17 12:55 DC 01/08/17 13:01 1 MG Piperacillin Sod/ Tazobactam Sod (Zosyn Iv) 4.5 gm NOW STAT IV 01/08/17 13:14 01/08/17 13:17 DC 01/08/17 14:17 4.5 GM Levofloxacin (Levaquin / D5W) 750 mg NOW STAT IV 01/08/17 13:14 01/08/17 13:17 DC 01/08/17 14:21 750 MG Vancomycin HCl (Vancomycin 1gm/ 270ml Nss) 1 gm NOW STAT IV 01/08/17 13:14 01/08/17 13:17 DC 01/08/17 15:01 1 GM Sodium Chloride 500 ml @ 999 mls/hr Q31M STAT IV 01/08/17 13:14 01/08/17 13:44 DC 01/08/17 14:16 999 MLS/HR Hydromorphone HCl (Dilaudid Inj) 1 mg NOW STAT IV 01/08/17 13:14 01/08/17 13:17 DC 01/08/17 14:16 1 MG Ondansetron HCl (Zofran Inj) 4 mg NOW STAT IV 01/08/17 13:14 01/08/17 13:17 DC 01/08/17 14:16 4 MG Albuterol/ Ipratropium (Duoneb) 12 ml ONE ONCE INH 01/08/17 13:30 01/08/17 13:31 DC 01/08/17 14:34 12 ML ECG Indication: chest pain Rate (beats per minute): 91 Rhythm: normal sinus Findings: no acute ischemic change, no ectopy ED Course 1226: Past medical records reviewed. The patient was evaluated in room B4B. A complete history and physical examination was performed. 1230: Ordered Dilaudid Inj 1 mg IV. 1254: Ordered Dilaudid Inj 1 mg IV. 1314: Ordered Zofran Inj 4 mg IV, Dilaudid Inj 1 mg IV, NSS 500 ml @ 999 mls/hr IV, Vancomycin HCl 1 gm IV, Levofloxacin 750 mg IV, Zosyn Iv 4.5 gm IV. 1330: Ordered Duoneb 12 ml INH. 1431: I discussed the patient's case with Dr. Salvador, he has agreed to evaluate the patient for further management and care. Medical Decision Differential diagnosis: Etiologies such as cardiac ischemia, aortic dissection, pulmonary embolism, pneumonia, pneumothorax, musculoskeletal, infections, pericarditis, myocarditis , esophageal rupture, gastrointestinal, as well as others were entertained. This is a 71-year-old male who has metastatic cancer and is currently receiving chemotherapy that presents emergency department complaining of right-sided chest pain. The patient has a pneumonia on his chest x-ray however due to the patient's illness he was sent for a CAT scan of the chest. This showed a diffuse pneumonia throughout the entire right lung field with mucus plugging. The patient was given a breathing treatment and started on Zosyn and Levaquin and vancomycin she was pancultured up and given breathing treatments. The patient required a large amount of pain medication while emergency department including 1 mg of Dilaudid 3. I did discuss his case with the hospitalist service who agreed to admit the patient. Patient was in agreement with the treatment plan. Medication Reconcilliation Current Medication List: was personally reviewed by me Blood Pressure Screening Patient's blood pressure: Normal blood pressure Blood pressure disposition: Did not require urgent referral Consults Time Called: 1428 Consulting Physician: Dr. Salvador Returned Call: 1431 I discussed the patient's case with Dr. Salvador, he has agreed to evaluate the patient for further management and care. Impression Primary Impression: Pneumonia Scribe Attestation The scribe's documentation has been prepared under my direction and personally reviewed by me in its entirety. I confirm that the note above accurately reflects all work, treatment, procedures, and medical decision making performed by me. Departure Information Dispostion Being Evaluated By Hospitalist Referrals Nirmala Delacruz (PCP) Patient Instructions My [facility] Problem Qualifiers Primary Impression: Pneumonia Pneumonia type: due to unspecified organism Laterality: right Lung location : lower lobe of lung Qualified Codes: J18.1 - Lobar pneumonia, unspecified organism
[2017-01-08 12:41] LABS: MEAN CELL VOLUME 92.2 fL (80-100); MEAN CORPUSCULAR HEMOGLOBIN 31.8 pg (25-34); MEAN CORPUSCULAR HGB CONC 34.5 g/dl (32-36); RED BLOOD COUNT 4.34 M/uL (4.7-6.1); WHITE BLOOD COUNT 5.52 K/uL (4.8-10.8)
--- NOTE | 2017-01-08 12:44 | DIAGNOSTIC IMAGING REPORT ---
CHEST ONE VIEW PORTABLE CLINICAL HISTORY: CHEST PAIN dyspnea COMPARISON STUDY: 11/18/2016 FINDINGS: Interval development parenchymal infiltrate right base. Unchanging mediastinal and hilar fullness. Peripheral left lung is clear. IMPRESSION: Interval development of superimposed parenchymal infiltrate right base. The above report was generated using voice recognition software. It may contain grammatical, syntax or spelling errors. Electronically signed by: Marshall Granado M.D. 01/08/2017 12:42 PM Dictated Date/Time: 01/08/2017 12:42 PM
[2017-01-08 12:46] LABS: INR 1.2 (0.9-1.1)
[2017-01-08 12:59] LABS: ALKALINE PHOSPHATASE 141 U/L (45-117); ALT/SGPT 131 U/L (12-78); AST/SGOT 53 U/L (15-37); BLOOD UREA NITROGEN 45 mg/dl (7-18); BUN/CREATININE RATIO 31.9 (10-20); CALCIUM 9.4 mg/dl (8.5-10.1); CARBON DIOXIDE 23 mmol/L (21-32); CHLORIDE 102 mmol/L (98-107); CKMB/CK RATIO 1.7 (0-3.0); GLUCOSE 179 mg/dl (70-99); SODIUM 135 mmol/L (136-145)
[2017-01-08] MEDS ORDERED: ONDANSETRON INJ 2 MG/ML 2 ML VIAL IV STA (13:14)
[2017-01-08] MEDS ORDERED: SODIUM CHLORIDE 0.9% 500ML 500 ML IV STA (13:14)
[2017-01-08] MEDS ORDERED: PIPERACILLIN/TAZOBACTAM 4.5 GM/100ML D5W IV STA (13:14)
[2017-01-08] MEDS ORDERED: VANCOMYCIN 1GM/270ML NSS IV STA ×2 (13:14→15:43)
[2017-01-08] MEDS ORDERED: LEVAQUIN 750MG / 150ML D5W IV STA (13:14)
[2017-01-08] MEDS ORDERED: OPTIRAY 320 IV PRN (13:30)
[2017-01-08] MEDS ORDERED: ALBUT/IPRATROP 3MG/0.5MG NEB 3 ML VIAL INH ONE (13:30)
[2017-01-08 14:15] LABS: PLATELET COUNT 45 K/uL (130-400)
[2017-01-08 14:20] LABS: ANISOCYTOSIS PRESENT; BASO % 0.2 %; BASO ABS # 0.01 K/uL (0-0.2); COMPLETE YES; EOS % 0.2 %; IG% 2.5 %; LYMPH % 0.4 %; LYMPH ABS # 0.02 K/uL (1.2-3.4); MEAN PLATELET VOLUME 10.7 fL (7.4-10.4); MONO % 2.4 %; NEUT % 94.3 %; PLT ESTIMATE DECREASED; TOXIC GRANULATION 1+
[2017-01-08 14:35] VITALS: PULSE 92; O2SAT 91
--- NOTE | 2017-01-08 14:40 | DIAGNOSTIC IMAGING REPORT ---
CT ANGIOGRAPHY OF THE CHEST, PULMONARY EMBOLUS PROTOCOL CLINICAL HISTORY: Right-sided chest pain. Lung cancer. COMPARISON STUDY: Chest CT December 10, 2016 and chest radiograph January 08, 2017. TECHNIQUE: Following IV administration of 92 mL of Optiray-320, helical axial images of the chest were obtained utilizing the pulmonary embolus protocol. Maximal intensity projections and sagittal and coronal reformats were viewed on an independent 3D workstation. IV contrast was administered without complication. A dose lowering technique was utilized adhering to the principles of ALARA. CT DOSE: 257.35 mGy.cm FINDINGS: Stable left paramediastinal opacity is noted. This is likely post therapeutic. A left upper lobe cavity is unchanged since CT of December 10, 2016. The heart is moderately enlarged. There is no pericardial effusion. There is a trace left pleural effusion. Left pleural enhancing tissue suggestive of tumor has improved since exam of December 10, 2016. Associated pleural/extrapleural nodules have decreased in size since prior exam of December 10, 2016. An index left para-aortic nodule shown image 22 of 108 measures 1.3 cm. It previously measured 2.2 cm. There are no enlarged axillary, hilar or mediastinal lymph nodes. No pulmonary emboli are identified. There is no evidence of thoracic aortic dissection. There has been interval development of extensive right middle lobe consolidation with multifocal mucus plugging. A 1.5 cm right lower lobe nodule shown image 45 is also new. An irregular nodular opacity within the right upper lobe shown on image 62 is new. A 6 mm left lower lobe nodule shown image 60 is also new. Bronchial wall thickening and mucous filling is also noted within the right lower lobe. Moderate emphysema is present. A 3 cm right hepatic dome metastasis is similar in size to CT of December 10, 2016. A 1.8 cm lateral segment hepatic lesion and a 2.3 cm segment 5/6 hepatic lesion shown image 15 are likely new since prior CT of December 10, 2016. IMPRESSION: 1. No pulmonary emboli identified. 2. Interval development of extensive right middle lobe consolidation and a few irregular nodular opacities throughout the lungs. Mucus plugging and bronchial wall thickening. The findings favor extensive pneumonia given rapid development. A neoplastic etiology is considered less likely however imaging follow-up to ensure resolution is recommended. 3. Moderate interval improvement in left lower hemithorax pleural/extrapleural metastatic disease, as described above. 4. Suspected development of several hepatic lesions since prior CT of December 10, 2016. This suggests a mixed treatment response. 5. No change in the left upper hemithorax cavity. Stable left paramediastinal opacity which is likely post therapeutic. Electronically signed by: Kennedy Packer M.D. 01/08/2017 2:38 PM Dictated Date/Time: 01/08/2017 2:21 PM
[2017-01-08] MEDS ORDERED: HYDROCODONE/ACETAMI 10/325 TAB PO PRN (15:45)
[2017-01-08] MEDS ORDERED: ONDANSETRON 8 MG TAB PO PRN (15:45)
[2017-01-08] MEDS ORDERED: ALBUTEROL 0.083% NEBU SOLN 3 ML VIAL INH PRN (15:45)
[2017-01-08] MEDS ORDERED: MAGNESIUM HYDROXIDE SUSP 30 ML UDC PO PRN (16:00)
[2017-01-08] MEDS ORDERED: ALUMINUM/MAGNESIUM/SIMETH (MAALOX MAX) 30 ML UDC PO PRN (16:00)
[2017-01-08] MEDS ORDERED: ZOLPIDEM TARTRATE 5 MG TAB PO PRN (16:00)
[2017-01-08] MEDS ORDERED: ACETAMINOPHEN 325 MG TAB PO PRN (16:00)
[2017-01-08] MEDS ORDERED: VANCOMYCIN CONSULT ACTIVE PRN (16:15)
[2017-01-08] MEDS ORDERED: PIPERACILL/TAZOBAC CONSULT ACTIVE PRN (16:15)
--- NOTE | 2017-01-08 17:26 | HISTORY & PHYSICAL EXAMINATION ---
DATE OF ADMISSION: 01/08/2017 CHIEF COMPLAINT: Shortness of breath. HISTORY OF PRESENT ILLNESS: The patient is a 71-year-old white man who has history of small cell lung cancer diagnosed 2 years ago. In 2014, patient was treated with combined radiation and chemotherapy that was completed with initial success. In December 2015, unfortunately, patient had recurrence with brain mets. The patient was treated with carboplatinum, VD-16, completed therapy in May 2016. Repeat CT scan and PET scan showed progression of the disease and patient received a single dose of Taxol agent salvage regimen. Unfortunately, disease progressed and involved the costovertebral area and severe neuropathic pain. The patient went to radiation and received radiation to the chest that finished this Saturday. The patient presented to the ED with severe shortness of breath and productive cough. PAST MEDICAL HISTORY: 1. As mentioned in HPI plus COPD. 2. Hx pleural effusion in the past. 3. History of neutropenia and thrombocytopenia. 4. Dyslipidemia 5. Depression. 6. History of hypertension. 7. History of kidney stones. SOCIAL HISTORY: Former smoker, 30-pack per year smoking history, and lives with his . Denies any alcohol. FAMILY HISTORY: Denies family history of cancer. Admits to heart disease in the family. ALLERGIES: No known drug allergies. REVIEW OF SYSTEMS: Denies any fever or chills. Admits to cough and shortness of breath. Denies any diarrhea, blood in the stool. Denies any burning sensation in the urine or blood. Denies any focal weakness, tingling, numbness. Denies any chest pain or palpitation. Admits to costovertebral angle usual pain. Rest of the review of systems is negative. HOME MEDICATIONS: 1. Atorvastatin. 2. B complex supplement. 3. Bisacodyl. 4. Dexamethasone. 5. Fentanyl patch. 6. Lidocaine patch. 7. MiraLax. 8. Senokot. 9. Zoloft. 10. Spiriva. 11. Albuterol p.r.n. 12. Percocet for pain. 13. Dilaudid oral. 14. Zofran oral. PHYSICAL EXAMINATION: GENERAL: Obese, moderate distress. VITAL SIGNS: Temperature 36.7, heart rate is 92, respirations 18, blood pressure 112/69, pulse ox 91 on 3 liters. HEENT: No jaundice, no pallor, wet mucous membranes. NECK: Supple. HEART: S1, S2 normal. No gallop, rub or murmur. LUNGS: Decreased air entry bilaterally. ABDOMEN: Soft, nontender, nondistended. NEUROLOGIC: Awake, alert, oriented to time, place, and person. Moves all extremities. Sensation intact. Cranial nerves II through XII appear to be intact. EXTREMITIES: Lower extremities, no edema. JOINTS: No swelling or tenderness. PSYCHIATRIC: Normal appropriate affect and thought process. IMAGING: Showed right lung base infiltrate. CT angiogram showed no pulmonary emboli and confirmed the presence of extensive right middle lobe consolidation. LABORATORY DATA: White blood cell count 5.5, hemoglobin 13.8, platelets 45, BUN is 45, creatinine 1.4, sodium 135, potassium is 5. ASSESSMENT: 1. Right middle lobe pneumonia. 2. Small cell cancer status post radiation. 3. Acute hypoxic respiratory failure secondary to above. 4. Hypertension. 5. Dyslipidemia. 6. Acute on chronic renal failure, baseline creatinine 1.2-1.1, currently 1.4, likely secondary to dehydration and prerenal. 7. Thrombocytopenia. 8. Anemia, likely of chronic diseases. PLAN: 1. Admit the patient to telemetry. 2. Oxygen supplement. 3. Infectious disease consult. 4. Zosyn/vancomycin/azithromycin. 5. Obtain urine legionella and legionella culture. 6. Obtain mycoplasma IgM. 7. Obtain sputum culture and blood culture. 8. Avoid heparin for DVT prophylaxis due to low platelets, but start patient on SCD for mechanical prophylaxis. 9. Gentle IV fluid hydration. 10. Labs in a.m. 11. Monitor renal function. 12. Xopenex and Atrovent for bronchodilation. 13. Continue dexamethasone same dose. 14. If no improvement in patient, we will treat with antibiotics, might consider radiation-induced lung injury. We will order AST which usually extremely elevated in case of a radiation-induced lung injury. MTDD
[2017-01-08 18:29] VITALS: BP 118/73; PULSE 110; TEMP 36.5; O2SAT 95; BMI 24.0
[2017-01-08 19:06] VITALS: BP 114/71; PULSE 103; TEMP 36.5; O2SAT 93
--- NOTE | 2017-01-08 19:40 | Pharmacy Progress Note ---
Pharmacy Abx Initial Consult Date of Service Jan 08, 2017. Pharmacy Dosing Scope Date of Consult: 01/08/17 Consultation requested by: Dr. Russell Pharmacy is consulted to initiate vancomycin and Zosyn IV dosing therapy, order appropriate labs and adjust drug dose/frequency. Subjective The patient is a 71 year old male admitted on Jan 08, 2017 at 16:26. Objective Height (Feet): 5 Height (Inches): 10.00 Weight (Kilograms): 76.000 Vital Signs (Past 12Hrs) Vital Signs Past 12 Hours Date Time Temp Pulse Resp B/P (MAP) Pulse Ox O2 Delivery O2 Flow Rate FiO2 01/08/17 19:06 36.5 103 18 114/71 (85) 93 Nasal Cannula 5.0 01/08/17 18:29 36.5 110 18 118/73 95 Nasal Cannula 4.0 01/08/17 17:54 115 16 97/41 94 Nasal Cannula 2.0 01/08/17 16:33 114 12 115/68 90 Nasal Cannula 4.0 01/08/17 15:04 93 12 121/80 95 Nebulizer 10.0 01/08/17 14:35 92 18 91 Nasal Cannula 3.0 01/08/17 14:29 86 16 112/69 91 Nasal Cannula 3.0 01/08/17 13:01 95 16 116/75 94 Nasal Cannula 2.0 01/08/17 12:32 95 Nasal Cannula 2.0 01/08/17 12:28 36.7 91 18 117/71 90 Room Air 2.0 01/08/17 12:26 90 Room Air 01/08/17 12:22 95 Lab Results (24Hrs) Laboratory Tests (24 Hours) Test 01/08/17 12:20 01/08/17 17:56 01/08/17 19:13 White Blood Count 5.52 K/uL (4.8-10.8) Red Blood Count 4.34 M/uL (4.7-6.1) L Hemoglobin 13.8 g/dL (14.0-18.0) L Hematocrit 40.0 % (42-52) L Mean Corpuscular Volume 92.2 fL (80-100) Mean Corpuscular Hemoglobin 31.8 pg (25-34) Mean Corpuscular Hemoglobin Concent 34.5 g/dl (32-36) Platelet Count 45 K/uL (130-400) L Mean Platelet Volume 10.7 fL (7.4-10.4) H Neutrophils (%) (Auto) 94.3 % Lymphocytes (%) (Auto) 0.4 % Monocytes (%) (Auto) 2.4 % Eosinophils (%) (Auto) 0.2 % Basophils (%) (Auto) 0.2 % Neutrophils # (Auto) 5.21 K/uL (1.4-6.5) Lymphocytes # (Auto) 0.02 K/uL (1.2-3.4) L Monocytes # (Auto) 0.13 K/uL (0.11-0.59) Eosinophils # (Auto) 0.01 K/uL (0-0.5) Basophils # (Auto) 0.01 K/uL (0-0.2) Total Creatine Kinase 92 U/L (39-308) Micro Results Date/Time Source Procedure Growth Status 01/08/17 13:54 Blood Blood Culture Pending Received 01/08/17 13:47 Blood Blood Culture Pending Received Risk Factors for Resistance * Immunocompromised ( chemotherapy, radiation therapy) Assessment & Plan Assessment 71 year old male admitted with Right middle lobe pneumonia. Small cell cancer status post radiation. Acute hypoxic respiratory failure secondary to above. Acute on chronic renal failure, baseline creatinine 1.2-1.1, currently 1.4, likely secondary to dehydration and prerenal. Plan Vancomycin, azithromycin, and Zosyn for treatment of CAP Vancomycin IV * Loading dose: 1000 mg given in ER + 900mg on admission (25 mg/kg) * Maintenance dose: 1000 mg IV (13.2 mg/kg) every 16 hours * Goal trough level for pnx : 15 to 20 mcg/mL * Trough/Random level ordered for 01/10 prior to 2000 dose Piperacillin/tazobactam * 4.5 g bolus administered over 30 minutes in ER, then 3.375 g IV extended infusion every 8 hours for CrCl greater than 20 mL/min Pt also ordered Azithromycin 500mg IV q 24 hrs. Pharmacy will continue to follow and will adjust dose/frequency as necessary. Thank you.
[2017-01-08 20:20] VITALS: O2SAT 93
[2017-01-08] MEDS: AZITHROMYCIN IV 500 MG in DEXTROSE 5% 250ML 250 ML IV SCH (20:22)
[2017-01-08] MEDS: ATORVASTATIN 20 MG TAB PO SCH (20:22)
[2017-01-08] MEDS: PIPERACILL/TAZOBAC IV 3.375 GM in DEXTROSE 5% 100ML 100 ML IV SCH (20:22)
[2017-01-08] MEDS ORDERED: VANCOMYCIN INJ 900 MG in SODIUM CHLORIDE 0.9% 250ML 250 ML IV SCH (22:00)
[2017-01-08 23:12] VITALS: PULSE 92; O2SAT 95
[2017-01-08] MEDS: IPRATROPIUM BROMIDE NEB SOLN 0.02% 2.5 ML VIAL INH SCH (23:12)
[2017-01-08] MEDS: LEVALBUTEROL 0.63MG/3 ML NEB INH SCH (23:12)
[2017-01-08] MEDS: CHECK FENTANYL PATCH PLACEMENT SCH (23:18)
[2017-01-09] VITALS (9 sets, daily range): BP systolic 100–139; BP diastolic 55–81; PULSE 75–94; TEMP 36–36.8; O2SAT 91–99
[2017-01-09] MEDS: PIPERACILL/TAZOBAC IV 3.375 GM in DEXTROSE 5% 100ML 100 ML IV SCH ×3 (04:50→20:18)
[2017-01-09 05:40] LABS: HEMATOCRIT 36.6 % (42-52); MEAN CELL VOLUME 93.4 fL (80-100); MEAN CORPUSCULAR HEMOGLOBIN 30.9 pg (25-34); MEAN CORPUSCULAR HGB CONC 33.1 g/dl (32-36); RED BLOOD COUNT 3.92 M/uL (4.7-6.1); WHITE BLOOD COUNT 4.77 K/uL (4.8-10.8)
[2017-01-09 05:43] LABS: MEAN PLATELET VOLUME 11.9 fL (7.4-10.4); PLATELET COUNT 40 K/uL (130-400)
[2017-01-09 06:08] LABS: BUN/CREATININE RATIO 27.1 (10-20); CALCIUM 8.9 mg/dl (8.5-10.1); CREATININE 1.2 mg/dl (0.60-1.40); MAGNESIUM 2.2 mg/dl (1.8-2.4); POTASSIUM 5.2 mmol/L (3.5-5.1)
[2017-01-09 06:12] LABS: ALB/GLOB RATIO 0.5 (0.9-2)
[2017-01-09 06:30] LABS: ANISOCYTOSIS PRESENT; COMPLETE YES; EOS % 0.2 %; IG% 1.3 %; LARGE PLATELETS 1+; LYMPH % 0.2 %; LYMPH ABS # 0.01 K/uL (1.2-3.4); MONO % 3.6 %; NEUT % 94.7 %; TOXIC GRANULATION 3+; VACUOLIZATION 1+
[2017-01-09] MEDS: LEVALBUTEROL 0.63MG/3 ML NEB INH SCH (06:56)
[2017-01-09] MEDS: IPRATROPIUM BROMIDE NEB SOLN 0.02% 2.5 ML VIAL INH SCH (06:56)
[2017-01-09] MEDS: CHECK FENTANYL PATCH PLACEMENT SCH ×3 (07:49→23:49)
[2017-01-09] MEDS: VITAMIN B COMPLEX TAB PO SCH (07:50)
[2017-01-09] MEDS: LIDODERM (LIDOCAINE) PATCH 5% TD SCH (07:51)
[2017-01-09] MEDS: SERTRALINE HCL 100 MG TAB PO SCH (07:51)
[2017-01-09] MEDS: SENNA 8.6 MG TAB PO SCH (07:51)
[2017-01-09] MEDS: BISACODYL 5 MG TABEC PO SCH (07:52)
[2017-01-09] MEDS: POLYETHYLENE (MIRALAX) 17 GM PACK PO SCH (07:52)
[2017-01-09] MEDS: ALBUT/IPRATROP 3MG/0.5MG NEB 3 ML VIAL INH SCH ×4 (08:30→19:18)
--- NOTE | 2017-01-09 08:51 | Pulmonary Consultation ---
History General Date of Service: Jan 09, 2017. Stated Complaint: Pneumonia HPI The patient is a 71 year old male who presents to [facility] with complaints of Pneumonia. The patient's primary care provider is Nirmala Delacruz. HPI: 71-year-old male admitted through the emergency department for pneumonia. The patient has a past medical history significant for diffuse small cell lung carcinoma with recurrence to the chest and brain after aggressive chemotherapy and radiation. Please see workup/treatment below. The patient has noted progressive dyspnea on exertion to dyspnea at rest over the last 2-3 months. He is also been experiencing progressive pleurisy not only her left posterior medial aspect of his hemithorax but also now on the anterior right side medial aspect. Mr. boykin also speaks of increasing instability causing multiple falls over the last 4-6 weeks. He denies striking his head or any notable hematomas associated with these falls. He also denies loss of consciousness prior to these falls. Previous pulmonary workup: Diagnosed with diffuse small cell lung carcinoma 1) Dr. Weems 01/2015 (JESSICA mass) FOB 01/2015 2) Chemoradiation 7000cGy with cisplatin/etoposide. a. neutropenia and respiratory failure requiring intubation and MV support b. Chemoradiation completed 04/19/2015 followed c. prophylactic cranial irradiation completed 06/2015 d. 4 cycles of carboplatin/etoposide forRecurrent/progressive disease in his brain, left hemithorax, this was completed in May 2016. e. MRI in 09/10/2016 that showed progressive/metastatic brain lesions and underwent SBRT 2400 centigray on 10/04/2016. f. PET-CT on 11/07/2016 that showed progression of disease in the left posterior chest wall and was treated with Taxol by Dr. Powers but he had notable progression on therapy and it was discontinued November of [address] bx 01/12/16 (FNA) + small cell neuroendocrine carcinoma a. PET/CT 12/2015 describes soft tissue extending to the left posterior chest wall with lung nodules measuring 2.5 -3.2cm with 8.7 & 7.2 SUV 2) Dr. Small (cough and progressive dyspnea) a. FOB 11/08/2015 b. 6-weeks voriconazole for suspected aspergillus c. Extended steroid taper for pneumonitis d. PET/CT 12/2015 described improvement in left apex with progressive pedro changes in the left base and retro-crural region 3) [place]/ pneumothorax 1. CT thorax: 02/28/2016 (comparison: 10/03/2015) 2. Emphysema 3. Stable left-sided loculated hydro pneumothorax 4. Stable loculated pleural effusion within the left hemithorax lower lobe 5. Increasing lingular opacification 4) Hypoxia a. Patient was seen in the office 12/21/2016 SaO2 of 87% on room air 5) Microbiology BAL 02/06/15: Melanie albicans Pleural fluid: Streptococcus intermedius Urine 02/22/2015: Melanie albicans Tissue-abdomen 90 2015: Melanie albicans BAL 11/08/2015: Alternaria species 6) Pleural fluid a 02/08/2015 WBC: 13 K CBC: 3K Polynuclear percent: 97.5 LDH: 1577 Glucose: <1 Pathology: Abundant inflammatory cells consistent with empyema Current admission workup: EKG: Normal sinus rhythm no signs of acute ischemia WBC: 6K PLT: 45K BUN/Cr: 45/1.40--32/1.20 ALB: 2.3L1.8 Procalcitonin: 0.78H Mycoplasma IgM: Pending Microbiology: Blood: Pending CT angiogram of the chest 01/08/2017 No pulmonary malaise and Extensive infiltrate versus mass right middle lobe New right upper lobe 12 mm nodule Possible new hepatic lesions Stable left upper lobe loculated pneumothorax Current in-hospital treatment: #1 oxygen support #2 Zosyn #3 vancomycin #4 azithromycin #5 dexamethasone 4 mg daily #6 fentanyl 100 g patch #7 lidocaine 5% patch #8 Xopenex/Atrovent nebulizers #9 Dilaudid #10 Carson 10/325 Historian: patient, EMS Review of Systems Constitutional: reports: malaise, weakness, weight loss Eyes: reports: no symptoms ENT: reports: no symptoms Cardiovascular: reports: no symptoms Respiratory: reports: as stated in HPI Genitourinary - Male: reports: no symptoms Musculoskeletal: reports: myalgias Integumentary: reports: no symptoms Neurologic: reports: as stated in HPI Psychiatric: reports: anxiety, depression Endocrine: no symptoms Hematologic / Lymphatic: no symptoms Allergic / Immunologic: no symptoms Past Medical History Past Medical History: 1. Allergic bronchopulmonary aspergillosis 2. Benign prostatic hyperplasia with urinary obstruction 3. COPD, moderate 4. Corticosteroid use 5. Dysplastic nevus 6. Empyema 7. Fungal infection 8. Hydropneumothorax 9. Hyperlipidemia 10. Hypertension 11. Incomplete emptying of bladder 12. Metastatic small cell carcinoma to brain 13. Neoplasm of uncertain behavior of skin 14. Oral thrush 15. Pure hypercholesterolemia 16. Skin cancer 17. Slowing of urinary stream 18. Small cell carcinoma of lung 19. Travel advice encounter 20. Urinary frequency Past Surgical History: 1. Biopsy Skin 2. Hand Incision Tendon Sheath Of A Finger 3. Jaw Surgery Family History Congestive heart failure FHx: neurologic disorder Heart disease 1. Family history of Heart Disease 2. Family history of Hypertension 3. Denied: Family history of Prostate Cancer Social History Denied: History of Alcohol Use (History) Former smoker (50-pack year, quit 03/2014) Marital History - Currently Occupation: Retired Uses sunscreen, SPF 15 - 30 Hx Tobacco Use In Past Year?: No Smoking Status: Never Smoker Marital status: Occupational Status: retired Immunizations History of Influenza Vaccine: Yes Influenza Vaccine Date: Feb 15, 2014 History of Tetanus Vaccine?: Unknown History of Pneumococcal: Unknown Pneumococcal Date: Jun 05, 2011 History of Hepatitis B Vaccine: Unknown Hepatitis Immunization Date: Aug 06, 2008 History of MDRO History of MDRO: No Allergies Coded Allergies: No Known Allergies (Unverified , 11/22/16) Current Medications Reported Home Medications Medications Dose Route/Sig Max Daily Dose Days Date Category Dose Instructions Miralax (Polyethylene Glycol 3350) 1 17 Gm PO DAILY 12/21/16 Reported Senna Lax (Senna) 8.6 Mg Tab 8.6 Mg PO QAM 30 12/14/16 Rx Bisacodyl EC (Bisacodyl) 5 Mg Tabec 5 Mg PO DAILY 12/14/16 Rx Hydromorphone HCl 8 Mg Tab 8 Mg PO Q4 PRN 12/14/16 Rx Fentanyl 100 Mcg Tdsy 100 Mcg TD Q72H 12/14/16 Rx Decadron (Dexamethasone) 4 Mg Tab 4 Mg PO AMPM 12/10/16 Reported Proventil 0.083% 2.5MG/3ML (Albuterol Sulf) 2.5 Mg/3 Ml Nebu 2.5 Mg INH QID PRN 11/18/16 Reported Zofran (Ondansetron Hcl) 8 Mg Tab 8 Mg PO Q8H PRN 11/18/16 Reported Zoloft (Sertraline HCl) 100 Mg Tab 100 Mg PO DAILY 11/18/16 Reported Carson 10MG/325MG (Acetaminophen/Hydrocodone Bitart) Tab 1 Tab PO Q4H PRN 11/07/16 Reported PRN PAIN Spiriva Respimat (Tiotropium [place]) 2.5 Mcg/Act Spr 2 Puffs PO DAILY 02/03/16 Reported Vitamin B Complex (B-Complex Vitamins) 1 Tab Tab 1 Tab PO DAILY 11/08/15 Reported Lipitor (Atorvastatin) 20 Mg Tab 20 Mg PO HS 02/05/15 Reported Physical Physical Exam Vital Signs: Date Time Temp Pulse Resp B/P (MAP) Pulse Ox O2 Delivery O2 Flow Rate FiO2 01/09/17 07:00 87 20 99 Nasal Cannula 4.0 01/09/17 06:52 36.0 87 20 139/81 (100) 95 Nasal Cannula 4.0 01/09/17 04:00 36.5 75 18 119/73 (88) 93 Nasal Cannula 01/09/17 04:00 92 Nasal Cannula 4.0 01/09/17 00:00 92 Nasal Cannula 4.0 01/09/17 00:00 36.6 94 18 115/70 (85) 92 01/08/17 23:12 92 20 95 Nasal Cannula 5.0 01/08/17 20:20 93 Nasal Cannula 4.5 01/08/17 19:06 36.5 103 18 114/71 (85) 93 Nasal Cannula 5.0 01/08/17 18:29 36.5 110 18 118/73 95 Nasal Cannula 4.0 01/08/17 17:54 115 16 97/41 94 Nasal Cannula 2.0 01/08/17 16:33 114 12 115/68 90 Nasal Cannula 4.0 01/08/17 15:04 93 12 121/80 95 Nebulizer 10.0 01/08/17 14:35 92 18 91 Nasal Cannula 3.0 01/08/17 14:29 86 16 112/69 91 Nasal Cannula 3.0 01/08/17 13:01 95 16 116/75 94 Nasal Cannula 2.0 01/08/17 12:32 95 Nasal Cannula 2.0 01/08/17 12:28 36.7 91 18 117/71 90 Room Air 2.0 01/08/17 12:26 90 Room Air 01/08/17 12:22 95 General Appearance: moderate distress, thin Head: NORMOCEPHALIC, ATRAUMATIC Eyes: PERRLA, NO DISCHARGE, EOMI, SCLERAE NORMAL ENT: NORMAL EAR EXAM, NORMAL NASAL EXAM, NORMAL MOUTH EXAM, NORMAL THROAT EXAM , NORMAL DENTAL EXAM Neck: NORMAL RANGE OF MOTION, NO TENDERNESS, TRACHEA MIDLINE, NO STRIDOR Respiratory: other (decreased breath sounds bilaterally greatest along the anterior apical subsegment of the left hemithorax, notable rhonchi appreciated on the anterior medial aspect of the right hemithorax) Cardiovasular: REGULAR RATE/RHYTHM, NORMAL S1S2, NO M/G/R, NO MURMUR, NO GALLOP Abdomen: NON TENDER, NORMAL BOWEL SOUNDS, NO REBOUND, NO MASSES, NO GUARDING, NO ORGANOMEGALY Genitourinary - Male: EXTERNAL GENITALIA NORMAL Back: other (tenderness to palpation along the mid thoracic spine) Upper Extremities: other (left upper extremity on the elbows a small skin tear no signs of secondary infection) Lower Extremities: other (1+ pitting edema) Pulses: carotid (R) (2+), carotid (L) (2+), posterior tibial (R) (1+), posterior tibial (L) (1+) Neuro: ALERT, ORIENTED x 3, NORMAL MOTOR EXAM, NORMAL SENSATION, NORMAL CEREBELLAR EXAM Reflexes: biceps (R) (2+), bicpes (L) (2+), achilles (R) (2+), achilles (L) (2+ ) Babinski Testing: right (downgoing), left (downgoing) Psychiatric: depressed, anxious Diagnostics Labs Results Past 24 Hours Test 01/08/17 12:20 01/08/17 19:13 01/08/17 19:51 01/09/17 05:24 Range/Units White Blood Count 5.52 4.77 4.8-10.8 K/uL Red Blood Count 4.34 3.92 4.7-6.1 M/uL Hemoglobin 13.8 12.1 14.0-18.0 g/dL Hematocrit 40.0 36.6 42-52 % Mean Corpuscular Volume 92.2 93.4 80-100 fL Mean Corpuscular Hemoglobin 31.8 30.9 25-34 pg Mean Corpuscular Hemoglobin Concent 34.5 33.1 32-36 g/dl Platelet Count 45 40 130-400 K/uL Mean Platelet Volume 10.7 11.9 7.4-10.4 fL Neutrophils (%) (Auto) 94.3 94.7 % Lymphocytes (%) (Auto) 0.4 0.2 % Monocytes (%) (Auto) 2.4 3.6 % Eosinophils (%) (Auto) 0.2 0.2 % Basophils (%) (Auto) 0.2 0.0 % Neutrophils # (Auto) 5.21 4.52 1.4-6.5 K/uL Lymphocytes # (Auto) 0.02 0.01 1.2-3.4 K/uL Monocytes # (Auto) 0.13 0.17 0.11-0.59 K/uL Eosinophils # (Auto) 0.01 0.01 0-0.5 K/uL Basophils # (Auto) 0.01 0.00 0-0.2 K/uL RDW Standard Deviation 67.4 69.0 36.4-46.3 fL RDW Coefficient of Variation 19.7 20.2 11.5-14.5 % Immature Granulocyte % (Auto) 2.5 1.3 % Immature Granulocyte # (Auto) 0.14 0.06 0.00-0.02 K/uL Toxic Granulation 1+ 3+ Platelet Estimate DECREASED Anisocytosis PRESENT PRESENT Prothrombin Time 13.0 9.0-12.0 SECONDS Prothromb Time International Ratio 1.2 0.9-1.1 Sodium Level 135 135 136-145 mmol/L Potassium Level 5.0 5.2 3.5-5.1 mmol/L Chloride Level 102 102 98-107 mmol/L Carbon Dioxide Level 23 27 21-32 mmol/L Anion Gap 10.0 6.0 3-11 mmol/L Blood Urea Nitrogen 45 32 7-18 mg/dl Creatinine 1.40 1.20 0.60-1.40 mg/dl Est Creatinine Clear Calc Drug Dose 43.6 58.3 ml/min Estimated GFR () 58.2 70.1 Estimated GFR (Non- 50.2 60.5 BUN/Creatinine Ratio 31.9 27.1 10-20 Random Glucose 179 165 70-99 mg/dl Calcium Level 9.4 8.9 8.5-10.1 mg/dl Total Bilirubin 0.4 0.6 0.2-1 mg/dl Direct Bilirubin 0.2 0-0.2 mg/dl Aspartate Amino Transf (AST/SGOT) 53 46 15-37 U/L Alanine Aminotransferase (ALT/SGPT) 131 137 12-78 U/L Alkaline Phosphatase 141 149 45-117 U/L Total Creatine Kinase 92 39-308 U/L Creatine Kinase MB 1.6 0.5-3.6 ng/ml Creatine Kinase MB Ratio 1.7 0-3.0 Troponin I < 0.015 0-0.045 ng/ml Total Protein 7.0 5.8 6.4-8.2 gm/dl Albumin 2.3 1.8 3.4-5.0 gm/dl Lipase 47 73-393 U/L Procalcitonin 0.78 0-0.5 ng/ml Erythrocyte Sedimentation Rate > 90 0-14 mm/hr Toxic Vacuolation 1+ Large Platelets 1+ Magnesium Level 2.2 1.8-2.4 mg/dl Globulin 4.0 2.5-4.0 gm/dl Albumin/Globulin Ratio 0.5 0.9-2 Microbiology Results 01/08/17 Blood Culture, Received Pending 01/08/17 Blood Culture, Received Pending Diagnostic Radiology CT angiogram of the chest 01/08/2017 No pulmonary malaise and Extensive infiltrate versus mass right middle lobe New right upper lobe 12 mm nodule Possible new hepatic lesions Stable left upper lobe loculated pneumothorax EKG Interpretation: NORMAL EKG Impression Assessment and Plan 71-year-old male with progressive non-small cell lung carcinoma admitted with right middle lobe infiltrate: #1 right middle lobe infiltrate: At this time only bronchoscopy with define whether this is pneumonia or progressive small cell lung cancer. There also appears to be a right upper lobe posterior subsegment new nodule in the patient is also experiencing new onset pleurisy. I do agree with continuing current antibiotics. The patient has had a history of ABPA previously treated by Dr. Wild Small and is at risk for fungal infections. Due to this I will initiate Diflucan at this time continue to monitor patient. Mr. boykin and I spoke at length about possible bronchoscopy to define whether this is infection and/or metastatic disease. He would like to speak to his about this issue. I spoke to him about his extensive risk of respiratory insufficiency and possible bleeding due to the procedure. #2 pleurisy: Patient does have notable pleurisy which is becoming more progressive than decreasing his overall quality of life. Patient's creatinine is currently 1.2 which makes him at high risk for renal insufficiency but at this time I will initiate Toradol for a 24 hour window to evaluate effectiveness. #3 CODE STATUS: Currently the patient is full code and we had a long discussion about whether he would like to be placed as a intermittent cold or possibly level V. He would like to speak to his and reevaluate this issue. #4 hospice: The patient did note his quality of life is very poor. He always sought quality of life over quantity of life he is also thinking about possibility of moving forward with hospice care.
[2017-01-09] MEDS ORDERED: KETOROLAC TROMETHAMINE 30 MG/ML VIAL IV STA (08:53)
[2017-01-09] MEDS ORDERED: FENTANYL PATCH REMOVE & WASTE SCH (09:00)
[2017-01-09] MEDS ORDERED: DEXAMETHASONE 4 MG TAB PO SCH (09:00)
[2017-01-09] MEDS ORDERED: FENTANYL 100 MCG/HR TDSY TD SCH (09:00)
[2017-01-09] MEDS: FLUCONAZOLE 200 MG/5 ML UDP PO SCH (09:30)
[2017-01-09] MEDS: GUAIFENESIN 600 MG TABCR PO SCH ×2 (09:30→21:40)
--- NOTE | 2017-01-09 10:51 | Medical Consult ---
Consultation Date of Consultation: Jan 09, 2017. Attending Physician: Marlon Howell MD Reason for Consultation: PNA History of Present Illness Patient is a 71-year-old male who presented to the emergency department with complaints of chest pain starting early that morning. The patient has history of small cell lung cancer, and felt that the pain was similar worse to what he had with his lung cancer. He states that he had also been short of breath and coughing at home. He had recently been slightly fatigued, and noted sweats and chills. Upon admission, the patient did have a chest x-ray which showed right basilar infiltrate. He then had CT scan of the chest/thorax which showed development of an extensive right middle lobe consolidation and a few irregular nodular opacities throughout the lungs, favoring a pneumonia, but neoplastic etiology could appear similarly. The patient's white blood cell count was 5.52 on admission. His ESR was greater than 90. His procalcitonin was 0.78. His creatinine was 1.40 on admission, and his liver function studies have been mildly elevated. The patient did have blood cultures drawn which are pending. Sputum culture is pending collection. He has been afebrile. Mycoplasma pneumonia IgM is pending. The patient was placed IV vancomycin, Zosyn, azithromycin, and Diflucan. The patient was evaluated by Pulmonary and is anticipating bronchoscopy. Past Medical/Surgical History Medical Problems: (1) Back pain Status: Acute (2) Brain tumor Status: Acute (3) Chest pain Status: Acute (4) COPD exacerbation Status: Acute (5) Diplopia Status: Acute (6) Intractable abdominal pain Status: Acute (7) Loculated pleural effusion Status: Acute (8) Lung mass Status: Acute (9) Neutropenia Status: Acute (10) Pneumonia Status: Acute (11) Radiation pneumonitis Status: Acute (12) Thrombocytopenia Status: Acute Medical Problems: (1) Benign hypertension (2) Congestive Heart Failure Nos (3) Hyperlipidemia (4) Hyperlipidemia Nec/Nos (5) Hypertension Nos (6) Hypoxia (7) Kidney stone (8) Lung cancer (9) Syncope and collapse Family History Congestive heart failure FHx: neurologic disorder Heart disease Noncontributory Social History Smoking Status: Never Smoker Marital Status: Housing Status: lives with family Occupation Status: retired Allergies Coded Allergies: No Known Allergies (Unverified , 11/22/16) Home Medications Reported Home Medications Medications Dose Route/Sig Max Daily Dose Days Date Category Dose Instructions Miralax (Polyethylene Glycol 3350) 1 Pow Pow 17 Gm PO DAILY 12/21/16 Reported Senna Lax (Senna) 8.6 Mg Tab 8.6 Mg PO QAM 30 12/14/16 Rx Bisacodyl EC (Bisacodyl) 5 Mg Tabec 5 Mg PO DAILY 12/14/16 Rx Hydromorphone HCl 8 Mg Tab 8 Mg PO Q4 PRN 12/14/16 Rx Fentanyl 100 Mcg Tdsy 100 Mcg TD Q72H 12/14/16 Rx Decadron (Dexamethasone) 4 Mg Tab 4 Mg PO AMPM 12/10/16 Reported Proventil 0.083% 2.5MG/3ML (Albuterol Sulf) 2.5 Mg/3 Ml Nebu 2.5 Mg INH QID PRN 11/18/16 Reported Zofran (Ondansetron Hcl) 8 Mg Tab 8 Mg PO Q8H PRN 11/18/16 Reported Zoloft (Sertraline HCl) 100 Mg Tab 100 Mg PO DAILY 11/18/16 Reported [place] 10MG/325MG (Acetaminophen/Hydrocodone Bitart) Tab 1 Tab PO Q4H PRN 11/07/16 Reported PRN PAIN Spiriva Respimat (Tiotropium [place]) 2.5 Mcg/Act Spr 2 Puffs PO DAILY 02/03/16 Reported Vitamin B Complex (B-Complex Vitamins) 1 Tab Tab 1 Tab PO DAILY 11/08/15 Reported Lipitor (Atorvastatin) 20 Mg Tab 20 Mg PO HS 02/05/15 Reported Current Inpatient Medications Current Inpatient Medications Medications (Trade) Dose Ordered Sig/[place]ison Route Start Time Stop Time Status Last Admin Dose Admin Ioversol (Optiray 320) 100 ml UD PRN IV 01/08/17 13:30 01/12/17 13:29 Azithromycin 500 mg/Dextrose 255 ml @ 170 mls/hr DAILY@2000 IV 01/08/17 20:00 01/15/17 19:59 01/08/17 20:22 170 MLS/HR Piperacillin Sod/ Tazobactam Sod 3.375 gm/Dextrose 115 ml @ 28.75 mls/ hr Q8H IV 01/08/17 20:00 01/15/17 19:59 01/09/17 04:50 28.75 MLS/HR Albuterol Sulfate (Ventolin 0.083% 2.5MG/3ML Neb) 2.5 mg QID PRN INH 01/08/17 15:45 02/07/17 15:44 Atorvastatin Calcium (Lipitor Tab) 20 mg HS PO 01/08/17 21:00 02/07/17 20:59 01/08/17 20:22 20 MG Bisacodyl (Dulcolax Tab) 5 mg DAILY PO 01/09/17 09:00 02/08/17 08:59 01/09/17 07:52 5 MG Dexamethasone (Decadron Tab) 4 mg DAILY PO 01/09/17 09:00 02/08/17 08:59 01/09/17 07:50 4 MG Fentanyl (Duragesic Patch) 100 mcg Q3D@0900 TD 01/09/17 09:00 01/23/17 08:59 01/09/17 08:38 100 MCG Acetaminophen/ Hydrocodone Bitart ([place] 10/325 Tab) 1 tab Q4H PRN PO 01/08/17 15:45 01/22/17 15:44 Hydromorphone HCl (Dilaudid Tab) 8 mg Q4 PRN PO 01/08/17 15:45 01/22/17 15:44 01/09/17 07:50 8 MG Lidocaine (Lidoderm Patch 5%) 1 patch QAM TD 01/09/17 09:00 02/08/17 08:59 01/09/17 07:51 1 PATCH Ondansetron HCl (Zofran Tab) 8 mg Q8H PRN PO 01/08/17 15:45 02/07/17 15:44 Senna (Senokot Tab) 8.6 mg QAM PO 01/09/17 09:00 02/08/17 08:59 01/09/17 07:51 8.6 MG Sertraline HCl (Zoloft Tab) 100 mg DAILY PO 01/09/17 09:00 02/08/17 08:59 01/09/17 07:51 100 MG Vitamin B Complex (Vitamin B Complex) 1 tab DAILY PO 01/09/17 09:00 02/08/17 08:59 01/09/17 07:50 1 TAB Polyethylene (Miralax Powder Packet) 17 gm DAILY PO 01/09/17 09:00 02/08/17 08:59 01/09/17 07:52 17 GM Miscellaneous (Fentanyl Patch Remove & Waste) 1 ea Q3D@0900 N/A 01/09/17 09:00 02/08/17 08:59 01/09/17 07:48 1 EA Miscellaneous Information (Check Fentanyl Patch Placement) 1 ea QS N/A 01/09/17 00:00 02/08/17 00:00 01/09/17 07:49 1 EA Miscellaneous (Remove Lidoderm Patch) 1 ea DAILY@21 N/A 01/08/17 21:00 02/07/17 20:59 01/08/17 20:23 1 EA Vancomycin HCl (Consult) 1 ea UD PRN N/A 01/08/17 16:15 02/07/17 16:14 Piperacillin Sod/ Tazobactam Sod (Consult) 1 ea UD PRN N/A 01/08/17 16:15 02/07/17 16:14 Acetaminophen (Tylenol Tab) 650 mg Q4H PRN PO 01/08/17 16:00 02/07/17 15:59 Al Hydrox/Mg Hydrox/Simethicone (Maalox Max Susp) 15 ml Q4H PRN PO 01/08/17 16:00 02/07/17 15:59 Magnesium Hydroxide (Milk Of Magnesia Susp) 30 ml Q12H PRN PO 01/08/17 16:00 02/07/17 15:59 Zolpidem Tartrate (Ambien Tab) 5 mg HSZ PRN PO 01/08/17 16:00 02/07/17 15:59 Vancomycin HCl 1000 mg/Sodium Chloride 270 ml @ 125 mls/hr Q16H IV 01/09/17 12:00 01/15/17 14:59 Albuterol/ Ipratropium (Duoneb) 3 ml QIDR INH 01/09/17 08:30 02/08/17 08:29 Guaifenesin (Mucinex Contr Rel Tab) 1,200 mg Q12 PO 01/09/17 09:00 02/08/17 08:59 01/09/17 09:30 1,200 MG Fluconazole (Diflucan Susp) 200 mg QAM PO 01/09/17 09:00 01/16/17 08:59 01/09/17 09:30 200 MG Ketorolac Tromethamine (Toradol Inj) 15 mg Q6H IV 01/09/17 15:00 01/11/17 14:59 Review of Systems Constitutional: + weakness, + fatigue, No fever, No chills, No sweats Eyes: No worsening of vision ENT: No hearing loss Respiratory: + cough, + sputum, + shortness of breath, + dyspnea on exertion Cardiovascular: + chest pain (right lower chest) Abdomen: No pain, No nausea, No vomiting, No diarrhea Musculoskeletal: No joint pain, No muscle pain Genitourinary - Male: No hematuria, No dysuria Integumentary: No rash, No itch, No new/changing skin lesions Physical Exam Date Time Temp Pulse Resp B/P (MAP) Pulse Ox O2 Delivery O2 Flow Rate FiO2 01/09/17 07:00 87 20 99 Nasal Cannula 4.0 01/09/17 06:52 36.0 87 20 139/81 (100) 95 Nasal Cannula 4.0 01/09/17 04:00 36.5 75 18 119/73 (88) 93 Nasal Cannula 01/09/17 04:00 92 Nasal Cannula 4.0 01/09/17 00:00 92 Nasal Cannula 4.0 01/09/17 00:00 36.6 94 18 115/70 (85) 92 01/08/17 23:12 92 20 95 Nasal Cannula 5.0 01/08/17 20:20 93 Nasal Cannula 4.5 01/08/17 19:06 36.5 103 18 114/71 (85) 93 Nasal Cannula 5.0 01/08/17 18:29 36.5 110 18 118/73 95 Nasal Cannula 4.0 01/08/17 17:54 115 16 97/41 94 Nasal Cannula 2.0 01/08/17 16:33 114 12 115/68 90 Nasal Cannula 4.0 01/08/17 15:04 93 12 121/80 95 Nebulizer 10.0 01/08/17 14:35 92 18 91 Nasal Cannula 3.0 01/08/17 14:29 86 16 112/69 91 Nasal Cannula 3.0 01/08/17 13:01 95 16 116/75 94 Nasal Cannula 2.0 01/08/17 12:32 95 Nasal Cannula 2.0 01/08/17 12:28 36.7 91 18 117/71 90 Room Air 2.0 01/08/17 12:26 90 Room Air 01/08/17 12:22 95 General Appearance: WD/WN, no apparent distress Head: normocephalic, atraumatic Eyes: normal inspection, sclerae normal ENT: hearing grossly normal Neck: supple, trachea midline Respiratory/Chest: chest non-tender, no respiratory distress, no accessory muscle use, + crackles, + pertinent finding (coarse breath sounds throughout right lung especially RML) Cardiovascular: regular rate, rhythm, no murmur Abdomen/GI: normal bowel sounds, non tender, soft Extremities/Musculoskelatal: normal inspection, no pedal edema Neurologic/Psych: alert, normal mood/affect Skin: normal color, warm/dry, no rash Laboratory Results [~ rep ct add3]] CT ANGIOGRAPHY OF THE CHEST, PULMONARY EMBOLUS PROTOCOL CLINICAL HISTORY: Right-sided chest pain. Lung cancer. COMPARISON STUDY: Chest CT December 10, 2016 and chest radiograph January 08, 2017. TECHNIQUE: Following IV administration of 92 mL of Optiray-320, helical axial images of the chest were obtained utilizing the pulmonary embolus protocol. Maximal intensity projections and sagittal and coronal reformats were viewed on an independent 3D workstation. IV contrast was administered without complication. A dose lowering technique was utilized adhering to the principles of ALARA. CT DOSE: 257.35 mGy.cm FINDINGS: Stable left paramediastinal opacity is noted. This is likely post therapeutic. A left upper lobe cavity is unchanged since CT of December 10, 2016. The heart is moderately enlarged. There is no pericardial effusion. There is a trace left pleural effusion. Left pleural enhancing tissue suggestive of tumor has improved since exam of December 10, 2016. Associated pleural/extrapleural nodules have decreased in size since prior exam of December 10, 2016. An index left para-aortic nodule shown image 22 of 108 measures 1.3 cm. It previously measured 2.2 cm. There are no enlarged axillary, hilar or mediastinal lymph nodes. No pulmonary emboli are identified. There is no evidence of thoracic aortic dissection. There has been interval development of extensive right middle lobe consolidation with multifocal mucus plugging. A 1.5 cm right lower lobe nodule shown image 45 is also new. An irregular nodular opacity within the right upper lobe shown on image 62 is new. A 6 mm left lower lobe nodule shown image 60 is also new. Bronchial wall thickening and mucous filling is also noted within the right lower lobe. Moderate emphysema is present. A 3 cm right hepatic dome metastasis is similar in size to CT of December 10, 2016. A 1.8 cm lateral segment hepatic lesion and a 2.3 cm segment 5/6 hepatic lesion shown image 15 are likely new since prior CT of December 10, 2016. IMPRESSION: 1. No pulmonary emboli identified. 2. Interval development of extensive right middle lobe consolidation and a few irregular nodular opacities throughout the lungs. Mucus plugging and bronchial wall thickening. The findings favor extensive pneumonia given rapid development. A neoplastic etiology is considered less likely however imaging follow-up to ensure resolution is recommended. 3. Moderate interval improvement in left lower hemithorax pleural/extrapleural metastatic disease, as described above. 4. Suspected development of several hepatic lesions since prior CT of December 10, 2016. This suggests a mixed treatment response. 5. No change in the left upper hemithorax cavity. Stable left paramediastinal opacity which is likely post therapeutic. Item Value Date Time Blood Culture Received 01/08/17 1354 Blood Pending Blood Culture Received 01/08/17 1347 Blood Pending Last 24 Hours Test 01/08/17 12:20 01/08/17 19:13 01/08/17 19:51 01/09/17 05:24 White Blood Count 5.52 K/uL 4.77 K/uL Red Blood Count 4.34 M/uL 3.92 M/uL Hemoglobin 13.8 g/dL 12.1 g/dL Hematocrit 40.0 % 36.6 % Mean Corpuscular Volume 92.2 fL 93.4 fL Mean Corpuscular Hemoglobin 31.8 pg 30.9 pg Mean Corpuscular Hemoglobin Concent 34.5 g/dl 33.1 g/dl Platelet Count 45 K/uL 40 K/uL Mean Platelet Volume 10.7 fL 11.9 fL Neutrophils (%) (Auto) 94.3 % 94.7 % Lymphocytes (%) (Auto) 0.4 % 0.2 % Monocytes (%) (Auto) 2.4 % 3.6 % Eosinophils (%) (Auto) 0.2 % 0.2 % Basophils (%) (Auto) 0.2 % 0.0 % Neutrophils # (Auto) 5.21 K/uL 4.52 K/uL Lymphocytes # (Auto) 0.02 K/uL 0.01 K/uL Monocytes # (Auto) 0.13 K/uL 0.17 K/uL Eosinophils # (Auto) 0.01 K/uL 0.01 K/uL Basophils # (Auto) 0.01 K/uL 0.00 K/uL RDW Standard Deviation 67.4 fL 69.0 fL RDW Coefficient of Variation 19.7 % 20.2 % Immature Granulocyte % (Auto) 2.5 % 1.3 % Immature Granulocyte # (Auto) 0.14 K/uL 0.06 K/uL Toxic Granulation 1+ 3+ Platelet Estimate DECREASED Anisocytosis PRESENT PRESENT Prothrombin Time 13.0 SECONDS Prothromb Time International Ratio 1.2 Sodium Level 135 mmol/L 135 mmol/L Potassium Level 5.0 mmol/L 5.2 mmol/L Chloride Level 102 mmol/L 102 mmol/L Carbon Dioxide Level 23 mmol/L 27 mmol/L Anion Gap 10.0 mmol/L 6.0 mmol/L Blood Urea Nitrogen 45 mg/dl 32 mg/dl Creatinine 1.40 mg/dl 1.20 mg/dl Est Creatinine Clear Calc Drug Dose 43.6 ml/min 58.3 ml/min Estimated GFR () 58.2 70.1 Estimated GFR (Non- 50.2 60.5 BUN/Creatinine Ratio 31.9 27.1 Random Glucose 179 mg/dl 165 mg/dl Calcium Level 9.4 mg/dl 8.9 mg/dl Total Bilirubin 0.4 mg/dl 0.6 mg/dl Direct Bilirubin 0.2 mg/dl Aspartate Amino Transf (AST/SGOT) 53 U/L 46 U/L Alanine Aminotransferase (ALT/SGPT) 131 U/L 137 U/L Alkaline Phosphatase 141 U/L 149 U/L Total Creatine Kinase 92 U/L Creatine Kinase MB 1.6 ng/ml Creatine Kinase MB Ratio 1.7 Troponin I < 0.015 ng/ml Total Protein 7.0 gm/dl 5.8 gm/dl Albumin 2.3 gm/dl 1.8 gm/dl Lipase 47 U/L Procalcitonin 0.78 ng/ml Erythrocyte Sedimentation Rate > 90 mm/hr Toxic Vacuolation 1+ Large Platelets 1+ Magnesium Level 2.2 mg/dl Globulin 4.0 gm/dl Albumin/Globulin Ratio 0.5 Assessment & Plan Patient with probable RML pneumonia versus neoplastic process in the setting of previous small cell lung carcinoma. He is currently on IV Vancomycin, Azithromycin, Zosyn, and Diflucan added by Dr. Perez. These are appropriate pending bronchoscopy. Note sputum culture also pending collection. Will adjust abx pending culture results. We will follow. PROVIDER ADDENDUM: Patient examined and reviewed with Mrs. Nance. Agree with above assessment.
[2017-01-09] MEDS: VANCOMYCIN INJ 1,000 MG in SODIUM CHLORIDE 0.9% 250ML 250 ML IV SCH (10:57)
[2017-01-09 12:11] LABS: VEN BLD GAS O2 SATURATION 85.4 %; VEN BLOOD GAS BASE EXCESS 1.5 mmol/L
[2017-01-09] MEDS ORDERED: HYDROmorphone INJ 0.5 MG/0.5 ML SYR IV PRN (14:00)
[2017-01-09] MEDS: KETOROLAC TROMETHAMINE 15 MG/ML VIAL IV SCH ×2 (15:37→21:40)
[2017-01-09] MEDS: DEXAMETHASONE INJ 4 MG in SYRINGE 0 ML IV SCH ×2 (15:37→23:49)
--- NOTE | 2017-01-09 20:07 | Progress Note ---
Subjective Date of Service: Jan 09, 2017. Subjective Pt evaluation today including: conversation w/ patient, conversation w/ family ( at bedside), physical exam, chart review, lab review, review of studies ( CT chest), review of inpatient medication list Pain: right chest wall, pleuritic PO Intake: fair at best Voiding: no voiding problems tele stable overnight pt quite sleepy during my first visit he c/o right sided chest wall pain with pleuritic component reports he has been on fentanyl patch for about 1 month staff report he got very sleepy this am following administration of oral dilaudid patient c/o cough, largely nonproductive, but no shortness of breath at rest mentions he has been intermittently sleepy for the last few days at home during my 2nd visit later in the day he was more awake and alert and reported his pain was much better Problem List Medical Problems: (1) Back pain Status: Acute (2) Brain tumor Status: Acute (3) Chest pain Status: Acute (4) COPD exacerbation Status: Acute (5) Diplopia Status: Acute (6) Intractable abdominal pain Status: Acute (7) Loculated pleural effusion Status: Acute (8) Lung mass Status: Acute (9) Neutropenia Status: Acute (10) Pneumonia Status: Acute (11) Radiation pneumonitis Status: Acute (12) Thrombocytopenia Status: Acute Review of Systems Constitutional: No fever Respiratory: + cough, + dyspnea at rest Cardiac: + see HPI, + chest pain, No orthopnea Abdomen: No pain Objective Vital Signs Date Time Temp Pulse Resp B/P (MAP) Pulse Ox O2 Delivery O2 Flow Rate FiO2 01/09/17 19:18 90 16 94 Nasal Cannula 2.0 01/09/17 16:56 36.8 85 20 125/76 (92) 92 Nasal Cannula 2.0 01/09/17 16:00 Nasal Cannula 2.0 01/09/17 12:00 Nasal Cannula 4.0 01/09/17 12:00 36.0 86 20 100/55 (70) 92 Nasal Cannula 4.0 01/09/17 08:00 95 Nasal Cannula 2.0 01/09/17 08:00 95 Nasal Cannula 4.0 01/09/17 07:00 87 20 99 Nasal Cannula 4.0 01/09/17 06:52 36.0 87 20 139/81 (100) 95 Nasal Cannula 4.0 01/09/17 04:00 36.5 75 18 119/73 (88) 93 Nasal Cannula 01/09/17 04:00 92 Nasal Cannula 4.0 01/09/17 00:00 92 Nasal Cannula 4.0 01/09/17 00:00 36.6 94 18 115/70 (85) 92 01/08/17 23:12 92 20 95 Nasal Cannula 5.0 01/08/17 20:20 93 Nasal Cannula 4.5 Physical Exam General Appearance: + mild distress (due to pain ), + pertinent finding (sleepy , looks ill) ENT: pharynx normal (no thrush) Neck: no JVD Respiratory/Chest: no respiratory distress, no accessory muscle use, + crackles (right base to RML), + rhonchi (right base), + wheezing (b/l, worse on right) Cardiovascular: regular rate, rhythm, no gallop, no murmur Abdomen: normal bowel sounds, non tender, soft, no organomegaly Extremities: + pedal edema (trace b/l) Neurologic/Psychiatric: alert, oriented x 3, + pertinent finding (but sleepy) Laboratory Results Last 24 Hours Test 01/08/17 19:51 01/09/17 00:00 01/09/17 05:24 01/09/17 11:49 Erythrocyte Sedimentation Rate > 90 mm/hr White Blood Count 4.77 K/uL Red Blood Count 3.92 M/uL Hemoglobin 12.1 g/dL Hematocrit 36.6 % Mean Corpuscular Volume 93.4 fL Mean Corpuscular Hemoglobin 30.9 pg Mean Corpuscular Hemoglobin Concent 33.1 g/dl Platelet Count 40 K/uL Mean Platelet Volume 11.9 fL Neutrophils (%) (Auto) 94.7 % Lymphocytes (%) (Auto) 0.2 % Monocytes (%) (Auto) 3.6 % Eosinophils (%) (Auto) 0.2 % Basophils (%) (Auto) 0.0 % Neutrophils # (Auto) 4.52 K/uL Lymphocytes # (Auto) 0.01 K/uL Monocytes # (Auto) 0.17 K/uL Eosinophils # (Auto) 0.01 K/uL Basophils # (Auto) 0.00 K/uL RDW Standard Deviation 69.0 fL RDW Coefficient of Variation 20.2 % Immature Granulocyte % (Auto) 1.3 % Immature Granulocyte # (Auto) 0.06 K/uL Toxic Granulation 3+ Toxic Vacuolation 1+ Large Platelets 1+ Anisocytosis PRESENT Sodium Level 135 mmol/L Potassium Level 5.2 mmol/L Chloride Level 102 mmol/L Carbon Dioxide Level 27 mmol/L Anion Gap 6.0 mmol/L Blood Urea Nitrogen 32 mg/dl Creatinine 1.20 mg/dl Est Creatinine Clear Calc Drug Dose 58.3 ml/min Estimated GFR () 70.1 Estimated GFR (Non- 60.5 BUN/Creatinine Ratio 27.1 Random Glucose 165 mg/dl Calcium Level 8.9 mg/dl Magnesium Level 2.2 mg/dl Total Bilirubin 0.6 mg/dl Aspartate Amino Transf (AST/SGOT) 46 U/L Alanine Aminotransferase (ALT/SGPT) 137 U/L Alkaline Phosphatase 149 U/L Total Protein 5.8 gm/dl Albumin 1.8 gm/dl Globulin 4.0 gm/dl Albumin/Globulin Ratio 0.5 Venous Blood pH 7.39 Venous Blood Partial Pressure CO2 46 mmHg Venous Blood Partial Pressure O2 51 mmHg Venous Blood HCO3 27 mmol/L Venous Blood Oxygen Saturation 85.4 % Venous Blood Base Excess 1.5 mmol/L Ammonia 23.0 umol/L Assessment and Plan 71yo male with: 1. acute hypoxic respiratory failure 2nd to RML pneumonia - abx, supportive care, O2, nebs, etc. appreciate pulmonary consultation. 2. RML pneumonia - will need to treat for gram negative/hospital acquired pneumonia given recent healthcare exposure. Cont zosyn, vanco, and zithromax for atypicals. Dilfucan added by Dr. Perez. Could consider d/c of vanco since MRSA swab is negative but given how sick he is would continue MRSA coverage for now. Add scheduled nebs. Add mucinex and pulmonary toilet. 3. COPD with exacerbation - will increase his daily decadron to TID dosing and make IV. 4. abnormal LFTs - suspect 2nd to liver mets. Check ammonia level to exclude hepatic encephalopathy given his lethargy. 5. lethargy/encephalopathy - check ammonia and VBG. If both are normal could be 2nd to pain meds. 6. right sided pleuritic pain - 2nd to RML pneumonia, mets, etc. Agree with toradol x 24 hours. Increased steroids should help. Cont chronic fentanyl patch. d/c PO dilaudid, change to IV dilaudid 0.5mg q3h prn and adjust as necessary. 7. DVT proph - SCDs; chemical means contraindicated due to thrombocytopenia. 8. anemia & thrombocytopenia - 2nd to liver dysfunction? anemia - due to cancer itself? Repeat cbc in am for stability. 9. stage 4 small cell lung cancer - progressive with new mets seen on CT chest (liver, additional lung mets). poor prognosis. agree that code status needs to be addressed, etc. 10. acute kidney injury - improved with Cr of 1.2 today. BMP in am. 11. hyperglycemia - 2nd to steroids and infection/stress? since the steroids will be increased check BSGs ac/hs. change diet to diabetic if necessary. consider a1c. add novolog coverage if the values run higher. 12. hypoalbuminemia - due to liver dysfunction from mets? protein calorie malnutrition from cancer? add boost BID w/ meals 13. hyperkalemia - 2nd to MEL. repeat in am cont hydration 14. h/o ABPA - noted. PT, OT consults updated extensively on 2 separate visits Continued [facility] stay due to: multiple IV medications needed
[2017-01-09] MEDS: AZITHROMYCIN IV 500 MG in DEXTROSE 5% 250ML 250 ML IV SCH (20:18)
[2017-01-09] MEDS ORDERED: SODIUM CHLORIDE 0.9% 500ML 500 ML IV SCH (20:45)
[2017-01-09] MEDS: ATORVASTATIN 20 MG TAB PO SCH (21:40)
[2017-01-10] VITALS (13 sets, daily range): BP systolic 102–158; BP diastolic 66–103; PULSE 79–104; TEMP 36.4–36.7; O2SAT 91–98
[2017-01-10] MEDS: KETOROLAC TROMETHAMINE 15 MG/ML VIAL IV SCH ×4 (03:15→20:19)
[2017-01-10] MEDS: VANCOMYCIN INJ 1,000 MG in SODIUM CHLORIDE 0.9% 250ML 250 ML IV SCH (04:00)
[2017-01-10] MEDS: PIPERACILL/TAZOBAC IV 3.375 GM in DEXTROSE 5% 100ML 100 ML IV SCH ×3 (04:00→20:18)
[2017-01-10] MEDS: ALBUT/IPRATROP 3MG/0.5MG NEB 3 ML VIAL INH SCH ×4 (06:58→19:09)
[2017-01-10 07:02] LABS: HEMATOCRIT 33.6 % (42-52); MEAN CELL VOLUME 92.1 fL (80-100); MEAN CORPUSCULAR HEMOGLOBIN 30.4 pg (25-34); PLATELET COUNT 31 K/uL (130-400); RED BLOOD COUNT 3.65 M/uL (4.7-6.1); WHITE BLOOD COUNT 3.72 K/uL (4.8-10.8)
[2017-01-10 07:11] LABS: ANISOCYTOSIS PRESENT; COMPLETE YES; EOS % 0.3 %; IG% 0.3 %; LYMPH % 0.5 %; LYMPH ABS # 0.02 K/uL (1.2-3.4); MONO % 1.3 %; NEUT % 97.6 %; PLT ESTIMATE SIGNIFIC DECREASED
[2017-01-10 07:12] LABS: CALCIUM 8.8 mg/dl (8.5-10.1); CREATININE 1.4 mg/dl (0.60-1.40)
[2017-01-10 07:14] LABS: ALB/GLOB RATIO 0.4 (0.9-2)
[2017-01-10] MEDS: VITAMIN B COMPLEX TAB PO SCH (08:29)
[2017-01-10] MEDS: SENNA 8.6 MG TAB PO SCH (08:29)
[2017-01-10] MEDS: GUAIFENESIN 600 MG TABCR PO SCH ×2 (08:29→20:19)
[2017-01-10] MEDS: FLUCONAZOLE 200 MG/5 ML UDP PO SCH (08:29)
[2017-01-10] MEDS: SERTRALINE HCL 100 MG TAB PO SCH (08:29)
[2017-01-10] MEDS: BISACODYL 5 MG TABEC PO SCH (08:29)
[2017-01-10] MEDS: LIDODERM (LIDOCAINE) PATCH 5% TD SCH (08:30)
[2017-01-10] MEDS: POLYETHYLENE (MIRALAX) 17 GM PACK PO SCH (08:30)
[2017-01-10] MEDS: DEXAMETHASONE INJ 4 MG in SYRINGE 0 ML IV SCH ×2 (08:30→20:18)
[2017-01-10] MEDS: CHECK FENTANYL PATCH PLACEMENT SCH ×3 (08:31→23:45)
--- NOTE | 2017-01-10 11:05 | Infectious Disease Progress Nt ---
Progress Note Date of Service Jan 10, 2017. Subjective Pt evaluation today including: conversation w/ patient, physical exam, chart review, lab review, review of studies, review of inpatient medication list Patient is feeling much better today. He states that he continues to have some mild cough but is expectorating less sputum today. He states that his right sided chest pain is more or less completely resolved. MRSA nasal swab was negative. Patient continues on IV Vancomycin, Zosyn, Azithromycin, and Diflucan. Patient feels that likely bronchoscopy will not be necessary, but he has not discussed this with Dr. Perez yet. WBC count today was 3.72. Platelet count continues to be very low at 31. Creatinine stable at 1.4. All Other Systems: Reviewed and Negative Medications Current Inpatient Medications Medications (Trade) Dose Ordered Sig/Allison Route Start Time Stop Time Status Last Admin Dose Admin Ioversol (Optiray 320) 100 ml UD PRN IV 01/08/17 13:30 01/12/17 13:29 Azithromycin 500 mg/Dextrose 255 ml @ 170 mls/hr DAILY@2000 IV 01/08/17 20:00 01/15/17 19:59 01/09/17 20:18 170 MLS/HR Piperacillin Sod/ Tazobactam Sod 3.375 gm/Dextrose 115 ml @ 28.75 mls/ hr Q8H IV 01/08/17 20:00 01/15/17 19:59 01/10/17 04:00 28.75 MLS/HR Albuterol Sulfate (Ventolin 0.083% 2.5MG/3ML Neb) 2.5 mg QID PRN INH 01/08/17 15:45 02/07/17 15:44 Atorvastatin Calcium (Lipitor Tab) 20 mg HS PO 01/08/17 21:00 02/07/17 20:59 01/09/17 21:40 20 MG Bisacodyl (Dulcolax Tab) 5 mg DAILY PO 01/09/17 09:00 02/08/17 08:59 01/10/17 08:29 5 MG Fentanyl (Duragesic Patch) 100 mcg Q3D@0900 TD 01/09/17 09:00 01/23/17 08:59 01/09/17 08:38 100 MCG Lidocaine (Lidoderm Patch 5%) 1 patch QAM TD 01/09/17 09:00 02/08/17 08:59 01/10/17 08:30 1 PATCH Ondansetron HCl (Zofran Tab) 8 mg Q8H PRN PO 01/08/17 15:45 02/07/17 15:44 01/10/17 06:05 8 MG Senna (Senokot Tab) 8.6 mg QAM PO 01/09/17 09:00 02/08/17 08:59 01/10/17 08:29 8.6 MG Sertraline HCl (Zoloft Tab) 100 mg DAILY PO 01/09/17 09:00 02/08/17 08:59 01/10/17 08:29 100 MG Vitamin B Complex (Vitamin B Complex) 1 tab DAILY PO 01/09/17 09:00 02/08/17 08:59 01/10/17 08:29 1 TAB Polyethylene (Miralax Powder Packet) 17 gm DAILY PO 01/09/17 09:00 02/08/17 08:59 01/10/17 08:30 17 GM Miscellaneous (Fentanyl Patch Remove & Waste) 1 ea Q3D@0900 N/A 01/09/17 09:00 02/08/17 08:59 01/09/17 07:48 1 EA Miscellaneous Information (Check Fentanyl Patch Placement) 1 ea QS N/A 01/09/17 00:00 02/08/17 00:00 01/10/17 08:31 1 EA Miscellaneous (Remove Lidoderm Patch) 1 ea DAILY@21 N/A 01/08/17 21:00 02/07/17 20:59 01/09/17 21:00 1 EA Vancomycin HCl (Consult) 1 ea UD PRN N/A 01/08/17 16:15 02/07/17 16:14 Piperacillin Sod/ Tazobactam Sod (Consult) 1 ea UD PRN N/A 01/08/17 16:15 02/07/17 16:14 Acetaminophen (Tylenol Tab) 650 mg Q4H PRN PO 01/08/17 16:00 02/07/17 15:59 Al Hydrox/Mg Hydrox/Simethicone (Maalox Max Susp) 15 ml Q4H PRN PO 01/08/17 16:00 02/07/17 15:59 Magnesium Hydroxide (Milk Of Magnesia Susp) 30 ml Q12H PRN PO 01/08/17 16:00 02/07/17 15:59 Zolpidem Tartrate (Ambien Tab) 5 mg HSZ PRN PO 01/08/17 16:00 02/07/17 15:59 Vancomycin HCl 1000 mg/Sodium Chloride 270 ml @ 125 mls/hr Q16H IV 01/09/17 12:00 01/15/17 14:59 01/10/17 04:00 125 MLS/HR Albuterol/ Ipratropium (Duoneb) 3 ml QIDR INH 01/09/17 08:30 02/08/17 08:29 01/10/17 06:58 3 ML Guaifenesin (Mucinex Contr Rel Tab) 1,200 mg Q12 PO 01/09/17 09:00 02/08/17 08:59 01/10/17 08:29 1,200 MG Fluconazole (Diflucan Susp) 200 mg QAM PO 01/09/17 09:00 01/16/17 08:59 01/10/17 08:29 200 MG Ketorolac Tromethamine (Toradol Inj) 15 mg Q6H IV 01/09/17 15:00 01/11/17 14:59 01/10/17 08:30 15 MG Dexamethasone Sodium Phosphate 4 mg/Syringe 1 ml @ 1 mls/min Q8H IV 01/09/17 16:00 02/08/17 15:59 01/10/17 08:30 1 MLS/MIN Hydromorphone HCl (Dilaudid Inj) 0.5 mg Q3H PRN IV 01/09/17 14:00 01/23/17 13:59 Objective Vital Signs Date Time Temp Pulse Resp B/P (MAP) Pulse Ox O2 Delivery O2 Flow Rate FiO2 01/10/17 08:13 36.4 98 18 147/82 (103) 94 2.0 01/10/17 06:58 84 16 97 Nasal Cannula 2.0 01/10/17 04:00 36.7 85 16 157/103 (121) 93 Room Air 01/10/17 04:00 93 Nasal Cannula 2.0 01/10/17 00:10 92 Nasal Cannula 2.0 01/10/17 00:00 36.7 86 16 122/78 (93) 94 Nasal Cannula 4.0 01/09/17 20:33 36.5 89 16 127/77 (94) 91 Nasal Cannula 2.0 01/09/17 20:00 Nasal Cannula 2.0 01/09/17 19:18 90 16 94 Nasal Cannula 2.0 01/09/17 16:56 36.8 85 20 125/76 (92) 92 Nasal Cannula 2.0 01/09/17 16:00 Nasal Cannula 2.0 01/09/17 12:00 Nasal Cannula 4.0 01/09/17 12:00 36.0 86 20 100/55 (70) 92 Nasal Cannula 4.0 Physical Exam General Appearance: WD/WN, no apparent distress Eyes: normal inspection, sclerae normal ENT: hearing grossly normal Neck: supple, trachea midline Respiratory/Chest: no respiratory distress, no accessory muscle use, + crackles (and coarse breath sounds throughout right lung, greatest at RML. ) Cardiovascular: + tachycardia Abdomen: normal bowel sounds, non tender, soft Extremities: normal range of motion, normal inspection Neurologic/Psychiatric: alert, normal mood/affect Skin: normal color, warm/dry, no rash Laboratory Results Item Value Date Time MRSA DNA Surveillance Screen - Final Complete 01/09/17 0000 Nasal Specimen Negative for MRSA by DNA Probe Blood Culture - Preliminary Resulted 01/08/17 1354 Blood NO GROWTH TO DATE. Blood Culture - Preliminary Resulted 01/08/17 1347 Blood NO GROWTH TO DATE. Last 24 Hours Test 01/09/17 11:49 01/10/17 05:43 Venous Blood pH 7.39 Venous Blood Partial Pressure CO2 46 mmHg Venous Blood Partial Pressure O2 51 mmHg Venous Blood HCO3 27 mmol/L Venous Blood Oxygen Saturation 85.4 % Venous Blood Base Excess 1.5 mmol/L Ammonia 23.0 umol/L White Blood Count 3.72 K/uL Red Blood Count 3.65 M/uL Hemoglobin 11.1 g/dL Hematocrit 33.6 % Mean Corpuscular Volume 92.1 fL Mean Corpuscular Hemoglobin 30.4 pg Mean Corpuscular Hemoglobin Concent 33.0 g/dl Platelet Count 31 K/uL Neutrophils (%) (Auto) 97.6 % Lymphocytes (%) (Auto) 0.5 % Monocytes (%) (Auto) 1.3 % Eosinophils (%) (Auto) 0.3 % Basophils (%) (Auto) 0.0 % Neutrophils # (Auto) 3.63 K/uL Lymphocytes # (Auto) 0.02 K/uL Monocytes # (Auto) 0.05 K/uL Eosinophils # (Auto) 0.01 K/uL Basophils # (Auto) 0.00 K/uL RDW Standard Deviation 67.1 fL RDW Coefficient of Variation 20.2 % Immature Granulocyte % (Auto) 0.3 % Immature Granulocyte # (Auto) 0.01 K/uL Platelet Estimate SIGNIFIC DECREASED Anisocytosis PRESENT Sodium Level 135 mmol/L Potassium Level 5.0 mmol/L Chloride Level 102 mmol/L Carbon Dioxide Level 26 mmol/L Anion Gap 7.0 mmol/L Blood Urea Nitrogen 43 mg/dl Creatinine 1.40 mg/dl Est Creatinine Clear Calc Drug Dose 50.0 ml/min Estimated GFR () 58.2 Estimated GFR (Non- 50.2 BUN/Creatinine Ratio 31.0 Random Glucose 205 mg/dl Calcium Level 8.8 mg/dl Total Bilirubin 0.5 mg/dl Aspartate Amino Transf (AST/SGOT) 69 U/L Alanine Aminotransferase (ALT/SGPT) 157 U/L Alkaline Phosphatase 167 U/L Total Protein 5.7 gm/dl Albumin 1.7 gm/dl Globulin 4.0 gm/dl Albumin/Globulin Ratio 0.4 Assessment and Plan Patient with probable RML pneumonia versus neoplastic process in the setting of previous small cell lung carcinoma. Seems mostly likely at this time with rapid improvement on abx therapy that pneumonia is favored diagnosis. He is currently on IV Vancomycin, Azithromycin, Zosyn, and Diflucan added by Dr. Perez. Will D/C Vancomycin but continue other current therapy pending further improvement. Hopefully, will be able to transition patient to PO therapy, but may ultimately complete 7-10 days of current therapy pending further improvement. We will follow. PROVIDER ADDENDUM: Patient reviewed with JO.agree with above assessment.
--- NOTE | 2017-01-10 13:00 | Pulmonology Progress Note ---
Pulmonary Progress Note Date of Service Jan 10, 2017. Attending Dr. Perez Subjective Patient notes continued dyspnea on exertion but denies: Fever, chills, productive cough Objective Patient looks well today and 2 L nasal cannula showing no signs of increased work of breathing: Vital signs: SaO2: 91-97% FiO2: 2-4L (currently 2L) RR: 16-18 Respiratory: Mild rhonchi noted bilaterally Cardiac: S1-S2 regular rate and rhythm no murmurs rubs or gallops Extremities: No clubbing cyanosis or edema Abdomen: Soft nontender positive bowel sounds Platelet: 31K MRSA swab: Negative Medications: #1 dexamethasone 4 mg every 8 hours #2 Toradol 50 mg every 6 hours #3 vancomycin #4 Zosyn #5 azithromycin Assessment & Plan 71-year-old gentleman with recurrent small cell lung carcinoma/diffuse admitted for acute respiratory insufficiency: #1: Patient is responded well at this time to steroids as well as antibiotics. It still is unknown if this new infiltrative process in the right hemithorax is tumor and/or infection. Patient and I did speak about performed bronchoscopy but he would like to hold off at this time. We did discuss option of repeating a CAT scan in a six-week window to reevaluate the infiltrate. #2 pneumonia: Patient's MRSA swab of his nose is negative I will discontinue vancomycin at this time. Data Medications: Current Inpatient Medications Medications (Trade) Dose Ordered Sig/Allison Route Start Time Stop Time Status Last Admin Dose Admin Ioversol (Optiray 320) 100 ml UD PRN IV 01/08/17 13:30 01/12/17 13:29 Azithromycin 500 mg/Dextrose 255 ml @ 170 mls/hr DAILY@1999 IV 01/08/17 20:00 01/15/17 19:59 01/09/17 20:18 170 MLS/HR Piperacillin Sod/ Tazobactam Sod 3.375 gm/Dextrose 115 ml @ 28.75 mls/ hr Q8H IV 01/08/17 20:00 01/15/17 19:59 01/10/17 12:25 28.75 MLS/HR Albuterol Sulfate (Ventolin 0.083% 2.5MG/3ML Neb) 2.5 mg QID PRN INH 01/08/17 15:45 02/07/17 15:44 Atorvastatin Calcium (Lipitor Tab) 20 mg HS PO 01/08/17 21:00 02/07/17 20:59 01/09/17 21:40 20 MG Bisacodyl (Dulcolax Tab) 5 mg DAILY PO 01/09/17 09:00 02/08/17 08:59 01/10/17 08:29 5 MG Fentanyl (Duragesic Patch) 100 mcg Q3D@0900 TD 01/09/17 09:00 01/23/17 08:59 01/09/17 08:38 100 MCG Lidocaine (Lidoderm Patch 5%) 1 patch QAM TD 01/09/17 09:00 02/08/17 08:59 01/10/17 08:30 1 PATCH Ondansetron HCl (Zofran Tab) 8 mg Q8H PRN PO 01/08/17 15:45 02/07/17 15:44 01/10/17 06:05 8 MG Senna (Senokot Tab) 8.6 mg QAM PO 01/09/17 09:00 02/08/17 08:59 01/10/17 08:29 8.6 MG Sertraline HCl (Zoloft Tab) 100 mg DAILY PO 01/09/17 09:00 02/08/17 08:59 01/10/17 08:29 100 MG Vitamin B Complex (Vitamin B Complex) 1 tab DAILY PO 01/09/17 09:00 02/08/17 08:59 01/10/17 08:29 1 TAB Polyethylene (Miralax Powder Packet) 17 gm DAILY PO 01/09/17 09:00 02/08/17 08:59 01/10/17 08:30 17 GM Miscellaneous (Fentanyl Patch Remove & Waste) 1 ea Q3D@0900 N/A 01/09/17 09:00 02/08/17 08:59 01/09/17 07:48 1 EA Miscellaneous Information (Check Fentanyl Patch Placement) 1 ea QS N/A 01/09/17 00:00 02/08/17 00:00 01/10/17 08:31 1 EA Miscellaneous (Remove Lidoderm Patch) 1 ea DAILY@21 N/A 01/08/17 21:00 02/07/17 20:59 01/09/17 21:00 1 EA Vancomycin HCl (Consult) 1 ea UD PRN N/A 01/08/17 16:15 02/07/17 16:14 Piperacillin Sod/ Tazobactam Sod (Consult) 1 ea UD PRN N/A 01/08/17 16:15 02/07/17 16:14 Acetaminophen (Tylenol Tab) 650 mg Q4H PRN PO 01/08/17 16:00 02/07/17 15:59 Al Hydrox/Mg Hydrox/Simethicone (Maalox Max Susp) 15 ml Q4H PRN PO 01/08/17 16:00 02/07/17 15:59 Magnesium Hydroxide (Milk Of Magnesia Susp) 30 ml Q12H PRN PO 01/08/17 16:00 02/07/17 15:59 Zolpidem Tartrate (Ambien Tab) 5 mg HSZ PRN PO 01/08/17 16:00 02/07/17 15:59 Vancomycin HCl 1000 mg/Sodium Chloride 270 ml @ 125 mls/hr Q16H IV 01/09/17 12:00 01/15/17 14:59 01/10/17 04:00 125 MLS/HR Albuterol/ Ipratropium (Duoneb) 3 ml QIDR INH 01/09/17 08:30 02/08/17 08:29 01/10/17 11:30 3 ML Guaifenesin (Mucinex Contr Rel Tab) 1,200 mg Q12 PO 01/09/17 09:00 02/08/17 08:59 01/10/17 08:29 1,200 MG Fluconazole (Diflucan Susp) 200 mg QAM PO 01/09/17 09:00 01/16/17 08:59 01/10/17 08:29 200 MG Ketorolac Tromethamine (Toradol Inj) 15 mg Q6H IV 01/09/17 15:00 01/11/17 14:59 01/10/17 08:30 15 MG Dexamethasone Sodium Phosphate 4 mg/Syringe 1 ml @ 1 mls/min Q8H IV 01/09/17 16:00 02/08/17 15:59 01/10/17 08:30 1 MLS/MIN Hydromorphone HCl (Dilaudid Inj) 0.5 mg Q3H PRN IV 01/09/17 14:00 01/23/17 13:59 Insulin Aspart (novoLOG ASPART) SLIDING SCALE PARAMETER ACHS SC 01/10/17 12:45 02/09/17 12:44 Vital Signs: Date Time Temp Pulse Resp B/P (MAP) Pulse Ox O2 Delivery O2 Flow Rate FiO2 01/10/17 12:00 Nasal Cannula 2.0 01/10/17 11:44 36.5 79 18 129/74 (92) 95 2.0 01/10/17 11:30 83 16 96 Nasal Cannula 2.0 01/10/17 11:14 103 91 01/10/17 08:13 36.4 98 18 147/82 (103) 94 2.0 01/10/17 08:00 Nasal Cannula 2.0 01/10/17 06:58 84 16 97 Nasal Cannula 2.0 01/10/17 04:00 36.7 85 16 157/103 (121) 93 Room Air 01/10/17 04:00 93 Nasal Cannula 2.0 01/10/17 00:10 92 Nasal Cannula 2.0 01/10/17 00:00 36.7 86 16 122/78 (93) 94 Nasal Cannula 4.0 01/09/17 20:33 36.5 89 16 127/77 (94) 91 Nasal Cannula 2.0 01/09/17 20:00 Nasal Cannula 2.0 01/09/17 19:18 90 16 94 Nasal Cannula 2.0 01/09/17 16:56 36.8 85 20 125/76 (92) 92 Nasal Cannula 2.0 01/09/17 16:00 Nasal Cannula 2.0 Laboratory Results: Last 24 Hours Test 01/10/17 05:43 01/10/17 11:21 White Blood Count 3.72 K/uL Red Blood Count 3.65 M/uL Hemoglobin 11.1 g/dL Hematocrit 33.6 % Mean Corpuscular Volume 92.1 fL Mean Corpuscular Hemoglobin 30.4 pg Mean Corpuscular Hemoglobin Concent 33.0 g/dl Platelet Count 31 K/uL Neutrophils (%) (Auto) 97.6 % Lymphocytes (%) (Auto) 0.5 % Monocytes (%) (Auto) 1.3 % Eosinophils (%) (Auto) 0.3 % Basophils (%) (Auto) 0.0 % Neutrophils # (Auto) 3.63 K/uL Lymphocytes # (Auto) 0.02 K/uL Monocytes # (Auto) 0.05 K/uL Eosinophils # (Auto) 0.01 K/uL Basophils # (Auto) 0.00 K/uL RDW Standard Deviation 67.1 fL RDW Coefficient of Variation 20.2 % Immature Granulocyte % (Auto) 0.3 % Immature Granulocyte # (Auto) 0.01 K/uL Platelet Estimate SIGNIFIC DECREASED Anisocytosis PRESENT Sodium Level 135 mmol/L Potassium Level 5.0 mmol/L Chloride Level 102 mmol/L Carbon Dioxide Level 26 mmol/L Anion Gap 7.0 mmol/L Blood Urea Nitrogen 43 mg/dl Creatinine 1.40 mg/dl Est Creatinine Clear Calc Drug Dose 50.0 ml/min Estimated GFR () 58.2 Estimated GFR (Non- 50.2 BUN/Creatinine Ratio 31.0 Random Glucose 205 mg/dl Calcium Level 8.8 mg/dl Total Bilirubin 0.5 mg/dl Aspartate Amino Transf (AST/SGOT) 69 U/L Alanine Aminotransferase (ALT/SGPT) 157 U/L Alkaline Phosphatase 167 U/L Total Protein 5.7 gm/dl Albumin 1.7 gm/dl Globulin 4.0 gm/dl Albumin/Globulin Ratio 0.4 Bedside Glucose 365 mg/dl
[2017-01-10] MEDS: INSULIN ASPART 100 UNITS/ML 3 ML PEN SC SCH ×3 (13:05→20:22)
--- NOTE | 2017-01-10 15:31 | Progress Note ---
Subjective Date of Service: Jan 10, 2017. Subjective pt still feels tired and has a cough, discussion for bronchoscopy will be on hold as long as he clinically improves. the patient had elevated blood glucoses from his steroids will discuss with XRT to see if we can taper them Problem List Medical Problems: (1) Back pain Status: Acute (2) Brain tumor Status: Acute (3) Chest pain Status: Acute (4) COPD exacerbation Status: Acute (5) Diplopia Status: Acute (6) Intractable abdominal pain Status: Acute (7) Loculated pleural effusion Status: Acute (8) Lung mass Status: Acute (9) Neutropenia Status: Acute (10) Pneumonia Status: Acute (11) Radiation pneumonitis Status: Acute (12) Thrombocytopenia Status: Acute Review of Systems Constitutional: No fever, No chills, No weakness, No fatigue Respiratory: + cough, + sputum, + wheezing, No shortness of breath Cardiac: No chest pain, No edema Abdomen: No pain, No nausea, No vomiting, No diarrhea Male : No dysuria, No urinary frequency Objective Vital Signs Date Time Temp Pulse Resp B/P (MAP) Pulse Ox O2 Delivery O2 Flow Rate FiO2 01/10/17 04:00 36.7 85 16 157/103 (121) 93 Room Air 01/10/17 04:00 93 Nasal Cannula 2.0 01/10/17 00:10 92 Nasal Cannula 2.0 01/10/17 00:00 36.7 86 16 122/78 (93) 94 Nasal Cannula 4.0 01/09/17 20:33 36.5 89 16 127/77 (94) 91 Nasal Cannula 2.0 01/09/17 20:00 Nasal Cannula 2.0 01/09/17 19:18 90 16 94 Nasal Cannula 2.0 01/09/17 16:56 36.8 85 20 125/76 (92) 92 Nasal Cannula 2.0 01/09/17 16:00 Nasal Cannula 2.0 01/09/17 12:00 Nasal Cannula 4.0 01/09/17 12:00 36.0 86 20 100/55 (70) 92 Nasal Cannula 4.0 01/09/17 08:00 95 Nasal Cannula 2.0 01/09/17 08:00 95 Nasal Cannula 4.0 Physical Exam General Appearance: WD/WN, + mild distress Eyes: PERRL, EOMI Neck: supple, no JVD Respiratory/Chest: + decreased breath sounds, + accessory muscle use, + rhonchi Cardiovascular: regular rate, rhythm, no murmur Abdomen: normal bowel sounds, non tender, soft Neurologic/Psychiatric: alert, oriented x 3 Laboratory Results Last 24 Hours Test 01/09/17 11:49 01/10/17 05:43 Venous Blood pH 7.39 Venous Blood Partial Pressure CO2 46 mmHg Venous Blood Partial Pressure O2 51 mmHg Venous Blood HCO3 27 mmol/L Venous Blood Oxygen Saturation 85.4 % Venous Blood Base Excess 1.5 mmol/L Ammonia 23.0 umol/L White Blood Count 3.72 K/uL Red Blood Count 3.65 M/uL Hemoglobin 11.1 g/dL Hematocrit 33.6 % Mean Corpuscular Volume 92.1 fL Mean Corpuscular Hemoglobin 30.4 pg Mean Corpuscular Hemoglobin Concent 33.0 g/dl Platelet Count 31 K/uL Neutrophils (%) (Auto) 97.6 % Lymphocytes (%) (Auto) 0.5 % Monocytes (%) (Auto) 1.3 % Eosinophils (%) (Auto) 0.3 % Basophils (%) (Auto) 0.0 % Neutrophils # (Auto) 3.63 K/uL Lymphocytes # (Auto) 0.02 K/uL Monocytes # (Auto) 0.05 K/uL Eosinophils # (Auto) 0.01 K/uL Basophils # (Auto) 0.00 K/uL RDW Standard Deviation 67.1 fL RDW Coefficient of Variation 20.2 % Immature Granulocyte % (Auto) 0.3 % Immature Granulocyte # (Auto) 0.01 K/uL Platelet Estimate SIGNIFIC DECREASED Anisocytosis PRESENT Sodium Level 135 mmol/L Potassium Level 5.0 mmol/L Chloride Level 102 mmol/L Carbon Dioxide Level 26 mmol/L Anion Gap 7.0 mmol/L Blood Urea Nitrogen 43 mg/dl Creatinine 1.40 mg/dl Est Creatinine Clear Calc Drug Dose 50.0 ml/min Estimated GFR () 58.2 Estimated GFR (Non- 50.2 BUN/Creatinine Ratio 31.0 Random Glucose 205 mg/dl Calcium Level 8.8 mg/dl Total Bilirubin 0.5 mg/dl Aspartate Amino Transf (AST/SGOT) 69 U/L Alanine Aminotransferase (ALT/SGPT) 157 U/L Alkaline Phosphatase 167 U/L Total Protein 5.7 gm/dl Albumin 1.7 gm/dl Globulin 4.0 gm/dl Albumin/Globulin Ratio 0.4 Assessment and Plan 71yo male with metastatic small cell cancer, right lungs changes suspect gram negative pneumonia, some new metastatic foci seen: acute hypoxic respiratory failure 2nd to gram pneumonia - abx, supportive care, O2, nebs, etc. appreciate pulmonary consultation no plans for bronchoscopy at this time RML pneumonia - will need to treat for gram negative/hospital acquired pneumonia given recent healthcare exposure. Cont zosyn, vanco, and zithromax for atypical. Add mucinex and pulmonary toilet. Pulmonary med will choose diflucan for fungal coverage with history of ABPA COPD with exacerbation - taper decadron as glucose intolerance is high abnormal LFTs - liklely liver mets. lethargy/encephalopathy -resolved good oriented conversation 01/10 DVT proph - SCDs; chemical means contraindicated due to thrombocytopenia. stage 4 small cell lung cancer - progressive with new mets seen on CT chest ( liver, additional lung mets). poor prognosis. hypoalbuminemia -discussed protein calorie malnutrition from cancer add boost BID w/ meals PT, OT consults Continued [facility] stay due to: multiple IV medications needed
[2017-01-10] MEDS ORDERED: VANCOMYCIN TROUGH SCH (19:30)
[2017-01-10] MEDS: AZITHROMYCIN IV 500 MG in DEXTROSE 5% 250ML 250 ML IV SCH (20:18)
[2017-01-10] MEDS: ATORVASTATIN 20 MG TAB PO SCH (20:19)
[2017-01-11] VITALS (7 sets, daily range): BP systolic 110–167; BP diastolic 72–96; PULSE 79–114; TEMP 36.7; O2SAT 94–99; Ht 177.8 cm; Wt 80.4 kg
[2017-01-11] MEDS: KETOROLAC TROMETHAMINE 15 MG/ML VIAL IV SCH ×2 (02:55→08:36)
[2017-01-11] MEDS: PIPERACILL/TAZOBAC IV 3.375 GM in DEXTROSE 5% 100ML 100 ML IV SCH (04:00)
[2017-01-11 05:27] LABS: CREATININE 1.4 mg/dl (0.60-1.40)
[2017-01-11] MEDS: ALBUT/IPRATROP 3MG/0.5MG NEB 3 ML VIAL INH SCH ×2 (07:02→11:06)
[2017-01-11] MEDS: CHECK FENTANYL PATCH PLACEMENT SCH (08:28)
[2017-01-11] MEDS: FLUCONAZOLE 200 MG/5 ML UDP PO SCH (08:32)
[2017-01-11] MEDS: DEXAMETHASONE INJ 4 MG in SYRINGE 0 ML IV SCH (08:32)
[2017-01-11] MEDS: GUAIFENESIN 600 MG TABCR PO SCH (08:32)
[2017-01-11] MEDS: SERTRALINE HCL 100 MG TAB PO SCH (08:32)
[2017-01-11] MEDS: SENNA 8.6 MG TAB PO SCH (08:32)
[2017-01-11] MEDS: VITAMIN B COMPLEX TAB PO SCH (08:32)
[2017-01-11] MEDS: POLYETHYLENE (MIRALAX) 17 GM PACK PO SCH (08:32)
[2017-01-11] MEDS: BISACODYL 5 MG TABEC PO SCH (08:36)
[2017-01-11] MEDS: INSULIN ASPART 100 UNITS/ML 3 ML PEN SC SCH ×2 (08:41→11:41)
[2017-01-11] MEDS: LIDODERM (LIDOCAINE) PATCH 5% TD SCH (08:45)
[2017-01-11] MEDS ORDERED: SNK PO (11:04)
[2017-01-11] MEDS ORDERED: DEXA2TAB PO (11:04)
[2017-01-11] MEDS ORDERED: AMOX875T PO (11:04)
[2017-01-11] MEDS ORDERED: GFNSR600 PO (11:04)
[2017-01-11] MEDS ORDERED: [UNRECOGNIZED DRUG - CODE] PO (11:04)
[2017-01-11] MEDS ORDERED: DLC5 PO (11:04)
[2017-01-11] MEDS ORDERED: POLY335019 PO (11:04)
--- NOTE | 2017-01-11 11:10 | Discharge Instructions ---
Discharge Instructions Date of Service Jan 11, 2017. Admission Reason for Admission: Pneumonia Discharge Discharge Diagnosis / Problem: pneumonia, small cell lung cancer Discharge Goals Goal(s): Diagnostic testing, Therapeutic intervention Activity Recommendations Activity Limitations: resume your previous activity Please limit carbohydrate rich food while on dexamethasone, please follow up with Dr Perez and also the prescriber of your dexamethasone ( your previous prescriber) for instructions on tapering further VS stopping Please wear 2 liters of oxygen at all times Also pay attention to constipation and restart laxatives as you need them . Current Hospital Diet Patient's current hospital diet: Regular Diet Discharge Diet Recommended Diet: Diabetes Type 2 Diet Pending Studies Studies pending at discharge: no Medical Emergencies . Who to Call and When: Medical Emergencies: If at any time you feel your situation is an emergency, please call 911 immediately. . Non-Emergent Contact Non-Emergency issues call your: Primary Care Provider, Head Rigger Call Non-Emergent contact if: temperature is above 101, your pain is unusual for you . . "Provider Documentation" section prepared by Cortez Claros. . VTE Core Measure Inpt VTE Proph given/why not?: Unfractionated heparin SQ
[2017-01-11] MEDS ORDERED: OXGN (11:11)
[2017-01-11] MEDS ORDERED: FLUC100T4 PO (11:30)
--- NOTE | 2017-01-11 15:24 | Discharge Summary ---
Discharge Summary Date of Service Jan 11, 2017. Discharge Summary Admission Date: Jan 08, 2017 at 16:26 Discharge Date: Jan 11, 2017 Discharge Disposition: Home Principal Diagnosis: pneumonia, small cell lung cancer Immunizations: Have You Had Influenza Vaccine: Yes Influenza Vaccine Date: Feb 15, 2014 History of Tetanus Vaccine?: Unknown History of Pneumococcal: Unknown Pneumococcal Date: Jun 05, 2011 History of Hepatitis B Vaccine: Unknown Hepatitis Immunization Date: Aug 06, 2008 Consultations: Dr Perez Medication Reconciliation New Medications: Amoxicillin & Pot Clavulanate (Augmentin 875-125 mg) 1 Tab Tab 875 MG PO BID, #14 TAB Fluconazole (Diflucan) 100 Mg Tab 200 MG PO DAILY, #28 DOSE this is renal dosed Home O2 Therapy (Oxygen) Gas 2 LITERS NA CONTINOUS, #1 UNIT Guaifenesin Ext Rel (Mucinex Ext Rel) 600 Mg Tabcr 1200 MG PO Q12, #20 DOSE Changed Medications: Bisacodyl (Bisacodyl EC) 5 Mg Tabec 5 MG PO DAILY PRN for Constipation, #30 TABS (Medication details modified) Dexamethasone (Dexamethasone) 2 Mg Tab 2 MG PO UD, #50 DOSE (Changed from: Dexamethasone (Decadron) 4 Mg Tab 4 Mg PO AMPM) 2 pills twice a day for 4 days then 2 am, one pm for 4 days then 2 am for 4 days then 1 am and as instructed by pcp Polyethylene Glycol 3350 (Miralax) 1 Pow Pow 17 GM PO DAILY PRN for Constipation, #527 GM (Medication details modified) Senna (Senna Lax) 8.6 Mg Tab 8.6 MG PO QAM PRN for Constipation for 30 Days, #30 TAB (Medication details modified) Continued Medications: Albuterol Sulf (Proventil 0.083% 2.5MG/3ML) 2.5 Mg/3 Ml Nebu 2.5 MG INH QID PRN for SOB/Wheezing, EA Atorvastatin (Lipitor) 20 Mg Tab 20 MG PO HS, 1 Refill B-Complex Vitamins (Vitamin B Complex) 1 Tab Tab 1 TAB PO DAILY Fentanyl (Fentanyl) 100 Mcg Tdsy 100 MCG TD Q72H, #10 PATCH Hydromorphone HCl (Hydromorphone HCl) 8 Mg Tab 8 MG PO Q4 PRN for Pain, #60 TAB (This prescription has been renewed) Lidocaine (Lidocaine) 1 Patch Tdsy 1 PATCH TD QAM, #30 PATCH Ondansetron Hcl (Zofran) 8 Mg Tab 8 MG PO Q8H PRN for Nausea, TAB Sertraline (Zoloft) 100 Mg Tab 100 MG PO DAILY, TAB Tiotropium [place] (Spiriva Respimat) 2.5 Mcg/Act Spr 2 PUFFS PO DAILY Discontinued Medications: Hydrocodone/Acetaminophen 10MG/325MG ([place] 10MG/325MG) Tab 1 TAB PO Q4H PRN for Pain, TAB PRN PAIN Discharge Exam Review of Systems: Constitutional: + weakness, + fatigue, No fever, No chills Respiratory: No cough, No sputum, No wheezing Cardiovascular: No chest pain, No orthopnea, No edema Physical Exam: General Appearance: WD/WN, + mild distress Neck: supple, no JVD Respiratory/Chest: chest non-tender, + decreased breath sounds, + rhonchi Cardiovascular: regular rate, rhythm, no murmur Neurologic/Psychiatric: alert, oriented x 3 Hospital Course 71yo male with metastatic small cell cancer, right lungs changes suspect gram negative pneumonia, some new metastatic foci seen: acute hypoxic respiratory failure 2nd to gram pneumonia - abx, supportive care, O2, nebs, etc. appreciate pulmonary consultation no plans for bronchoscopy at this time, recommeds treatment of infection first RML pneumonia - will need to treat for gram negative/hospital acquired pneumonia given recent healthcare exposure. will be home on augmentin and diflucan continue mucinex COPD with exacerbation - taper decadron as glucose intolerance is high, low carbohydrate diet abnormal LFTs - liklely liver mets seen on CT. lethargy/encephalopathy -resolved good oriented conversation DVT proph - SCDs; chemical means contraindicated due to thrombocytopenia. stage 4 small cell lung cancer - progressive with new mets seen on CT chest ( liver, additional lung mets). will follow up with DR Perez reinforced good nutrition Total Time Spent: Greater than 30 minutes This includes examination of the patient, discharge planning, medication reconciliation, and communication with other providers. Discharge Instructions Please refer to the electronic Patient Visit Report (Discharge Instructions) for additional information.
[2017-01-14 11:47] LABS: LEGIONELLA ANTIGEN NOT DETECTED (NOT DETECTED)
== END 2017-01-11 14:40 | disposition home or self-care (01) | DRG 190 ==
LOC: EDBD 12:13 → C.EDB 12:14 → C.2E 16:26 → ENRESERV 17:10
PROVIDERS: ADMIT Internal Medicine; ATTEND Internal Medicine
DX: J44.0 Chronic obstructive pulmonary disease with (acute) lower respiratory infection (principal); J15.6 Pneumonia due to other Gram-negative bacteria; J96.01 Acute respiratory failure with hypoxia; G93.40 Encephalopathy, unspecified; C34.90 Malignant neoplasm of unspecified part of unspecified bronchus or lung; C78.7 Secondary malignant neoplasm of liver and intrahepatic bile duct; C79.31 Secondary malignant neoplasm of brain; C79.89 Secondary malignant neoplasm of other specified sites; N17.9 Acute kidney failure, unspecified; J44.1 Chronic obstructive pulmonary disease with (acute) exacerbation; Y95 Nosocomial condition; E88.09 Other disorders of plasma-protein metabolism, not elsewhere classified; E87.5 Hyperkalemia; R09.1 Pleurisy; R53.83 Other fatigue; G89.3 Neoplasm related pain (acute) (chronic); D69.6 Thrombocytopenia, unspecified; D63.8 Anemia in other chronic diseases classified elsewhere; R29.6 Repeated falls; I12.9 Hypertensive chronic kidney disease with stage 1 through stage 4 chronic kidney disease, or unspecified chronic kidney disease; N18.9 Chronic kidney disease, unspecified; E78.00 Pure hypercholesterolemia, unspecified; E78.5 Hyperlipidemia, unspecified; N40.0 Benign prostatic hyperplasia without lower urinary tract symptoms; F32.9 Major depressive disorder, single episode, unspecified; Z87.891 Personal history of nicotine dependence; Z79.891 Long term (current) use of opiate analgesic; Z79.52 Long term (current) use of systemic steroids; Z79.899 Other long term (current) drug therapy

== ENCOUNTER → 2017-01-22 | Outpatient (CLI) | payer BC ==
[~2017-01-22] MED LIST changes: +AMOX875T PO; +DEXA2TAB PO; -DXM/4 PO; +FLUC100T4 PO; +GFNSR600 PO; -HYDR-4079 PO; +OXGN
--- NOTE | 2017-01-22 16:08 | DIAGNOSTIC IMAGING REPORT ---
SOFT TISSUE NECK TECHNIQUE: AP and lateral soft tissue neck FINDINGS: Normal prevertebral soft tissues. No distention of the hypopharynx. The epiglottis is normal. IMPRESSION: Normal study. The above report was generated using voice recognition software. It may contain grammatical, syntax or spelling errors. Electronically signed by: Marshall Granado M.D. 01/22/2017 4:07 PM Dictated Date/Time: 01/22/2017 4:07 PM
== END | disposition home or self-care (01) ==
LOC: C.RAD1850 15:52
PROVIDERS: ATTEND Physician Assistant
DX: M54.2 Cervicalgia (principal)